=== PATIENT | female | born 1960 | race Hispanic/Latino ===

== ENCOUNTER 2019-11-18 13:42 | Emergency (ER) | payer SELFPAY ==
[2019-11-18] MEDS ORDERED: LIDOCAINE 1% MPF 5 ML VIAL ONE (14:06)
[2019-11-18] MEDS ORDERED: TETANUS & DIPHTHERIA TOX,ADULT 0.5 ML VIAL ONE (14:07)
[2019-11-18] MEDS ORDERED: BUPIVACAINE 0.5% PF 10 ML VIAL ONE (14:07)
--- NOTE | 2019-11-18 15:22 | EDPHYS ---
Physician Documentation [facility] Name: Em Butler Age: 59 yrs Sex: Female : 1960 Arrival Date: 11/18/2019 Time: 13:44 Bed 18 Private MD: ED Physician Claudy Peters HPI: 11/17 13:53 This 59 yrs old Female presents to ER via Ambulatory with complaints of jmm Laceration To Hand. 13:53 The patient has a laceration patient states she cut her right 5th finger on a can lid jmm while taking out trash. denies other injury. patient is not utd on tetanus immunization. Onset: The symptoms/episode began/occurred acutely, just prior to arrival. Associated signs and symptoms: Pertinent negatives: deformity, dizziness, heavy bleeding, loss of consciousness, numbness distal to injury, suspected foreign body. Historical: - Allergies: 13:51 No Known Allergies; ca1 - PMHx: 13:51 Arthritis; GERD; Hypertension; Sleep Apnea; ca1 - PSHx: 13:51 Hysterectomy; Lumpectomy from right breast; Cholecystectomy; ca1 - Immunization history:: Adult Immunizations up to date, Last tetanus immunization: unknown. - Social history:: Smoking status: Patient denies any tobacco usage or history of. ROS: 13:53 Constitutional: Negative for fever, chills, and weight loss, Cardiovascular: Negative jmm for chest pain, palpitations, and edema, Respiratory: Negative for shortness of breath, cough, wheezing, and pleuritic chest pain. 13:53 Skin: Positive for laceration(s). 13:53 All other systems are negative. Exam: 13:53 Constitutional: This is a well developed, well nourished patient who is awake, alert, jmm and in no acute distress. Head/Face: atraumatic. Eyes: EOMI, no conjunctival erythema appreciated ENT: Moist Mucus Membranes Neck: Trachea midline, Supple Chest/axilla: Normal chest wall appearance and motion. Cardiovascular: Regular rate and rhythm. No edema appreciated Respiratory: Normal respirations, no respiratory distress appreciated Abdomen/GI: Non distended, soft Back: Normal ROM 13:53 Musculoskeletal/extremity: FROM noted to the right 5th finger, full strength against resistance, < 2 sec dist cap refill, NVI. 13:53 Skin: 3 cm laceration noted to the right fifth finger. Vital Signs: 13:48 BP 175 / 86; Pulse 94; Resp 15 S; Temp 98.6(TE); Pulse Ox 99% on R/A; Weight 134.26 kg ca1 (R); Height 4 ft. 11 in. (149.86 cm) (R); 13:48 Body Mass Index 59.78 (134.26 kg, 149.86 cm) ca1 Laceration: 15:19 Wound Repair of 3cm ( 1.2in ) subcutaneous laceration to dorsal aspect of proximal jmm phalanx of right little finger. Distal neuro/vascular/tendon intact. Anesthesia: Local anesthetic administered with 3 mls of Lido/Marcaine. Wound prep: Simple cleansing with betadine by me. Skin closed with 5 5-0 Prolene using simple sutures and sterile technique. Patient tolerated well. MDM: 13:53 Patient medically screened. [facility] 15:19 Data reviewed: vital signs, nurses notes. Counseling: I had a detailed discussion with woodrow the patient and/or guardian regarding: the historical points, exam findings, and any diagnostic results supporting the discharge/admit diagnosis, the need for outpatient follow up, to return to the emergency department if symptoms worsen or persist or if there are any questions or concerns that arise at home. ED course: Patient given wound infection return precautions. Patient understood and agrees with the plan of care. . 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 Exp: em 06/18/2021. Lot #: [id number]. } Route: IM; Site: left deltoid; 15:14 Follow up: Response: No adverse reaction em 14:13 Drug: Lidocaine (1 %) 10 ml Volume: 20 ml; Route: Infiltration; em 14:30 Follow up: Response: No adverse reaction; Pain is decreased em 14:14 Drug: Marcaine (0.5 %) 10 ml Volume: 10 ml; Route: Infiltration; em 14:30 Follow up: Response: No adverse reaction; Pain is decreased em Disposition: 17:15 Co-signature as Attending Physician, Claudy Peters MD. rn Disposition: 11/18/19 15:21 Discharged to Home. Impression: Finger Laceration. - Condition is Stable. - Discharge Instructions: Laceration Care, Adult. - Medication Reconciliation Form, Thank You Letter, Antibiotic Education, Prescription Opioid Use, Work release form form. - Follow up: Private Physician; When: 7 - 10 days; Reason: Recheck today's complaints, Continuance of care, Staple/Suture removal, Re-evaluation by your physician. Signatures: Andrey Kumar PA PA jmm Munoz, Edgar, RN RN em Claudy Peters MD MD rn Acob, EDDIE Norwood RN ca1 Corrections: (The following items were deleted from the chart) 15:40 15:21 11/18/2019 15:21 Discharged to Home. Impression: Finger Laceration. Condition is em Stable. Forms are Medication Reconciliation Form, Thank You Letter, Antibiotic Education, Prescription Opioid Use. Follow up: Private Physician; When: 7 - 10 days; Reason: Recheck today's complaints, Continuance of care, Staple/Suture removal, Re-evaluation by your physician. woodrow
--- NOTE | 2019-11-18 15:22 | ER ---
Nurse's Notes [facility] Name: Em Butler Age: 59 yrs Sex: Female : 1960 Arrival Date: 11/18/2019 Time: 13:44 Bed 18 Private MD: Diagnosis: Finger Laceration Presentation: 11/17 13:48 Chief complaint: Patient states: Lac on lateral R hand with a tin can. Coronavirus ca1 screen: Proceed with normal triage. Patient denies a cough. Patient denies shortness of breath or difficulty breathing. Patient denies measured and/or subjective temperature greater than 100.4F prior to today's visit. Patient denies travel on a cruise ship or to a country the [facility] currently lists as an affected area. Patient denies contact with known and/or suspected case of COVID-19. Ebola Screen: Patient negative for fever greater than or equal to 101.5 degrees Fahrenheit, and additional compatible Ebola Virus Disease symptoms Patient denies exposure to infectious person. Patient denies travel to an Ebola-affected area in the 21 days before illness onset. No symptoms or risks identified at this time. Initial Sepsis Screen: Does the patient meet any 2 criteria? No. Patient's initial sepsis screen is negative. Does the patient have a suspected source of infection? No. Patient's initial sepsis screen is negative. Risk Assessment: Do you want to hurt yourself or someone else? Patient reports no desire to harm self or others. Onset of symptoms was November 18, 2019. 13:48 Method Of Arrival: Ambulatory ca1 13:48 Acuity: ANNY 4 ca1 Historical: - Allergies: 13:51 No Known Allergies; ca1 - PMHx: 13:51 Arthritis; GERD; Hypertension; Sleep Apnea; ca1 - PSHx: 13:51 Hysterectomy; Lumpectomy from right breast; Cholecystectomy; ca1 - Immunization history:: Adult Immunizations up to date, Last tetanus immunization: unknown. - Social history:: Smoking status: Patient denies any tobacco usage or history of. Screenin:00 Abuse screen: Denies threats or abuse. Nutritional screening: No deficits noted. em Tuberculosis screening: No symptoms or risk factors identified. Fall Risk None identified. Assessment: 14:00 General: Appears in no apparent distress. comfortable, Behavior is calm, cooperative, em appropriate for age, Denies fever. Pain: Complains of pain in outer aspect of right palm. Neuro: Level of Consciousness is awake, alert, obeys commands, Oriented to person, place, time, situation, Appropriate for age. Cardiovascular: Capillary refill < 3 seconds Patient's skin is warm and dry. Respiratory: Airway is patent Respiratory effort is even, unlabored, Respiratory pattern is regular, symmetrical. GI: Abdomen is flat. Derm: Skin is intact, is healthy with good turgor, Skin is pink, warm \T\ dry. Musculoskeletal: Capillary refill < 3 seconds, Range of motion: intact in all extremities. Injury Description: Laceration sustained to outer aspect of right palm is clean, 0.5 to 2.5 cm long, was sustained less than 30 minutes ago. is bleeding a small amount. Vital Signs: 13:48 BP 175 / 86; Pulse 94; Resp 15 S; Temp 98.6(TE); Pulse Ox 99% on R/A; Weight 134.26 kg ca1 (R); Height 4 ft. 11 in. (149.86 cm) (R); 13:48 Body Mass Index 59.78 (134.26 kg, 149.86 cm) ca1 ED Course: 13:44 Patient arrived in ED. bp1 13:50 Triage completed. ca1 13:51 Nathan Patel, RN is Primary Nurse. em 13:51 Arm band placed on right wrist. ca1 13:53 Andrey Kumar PA is PHCP. [facility] 13:53 Claudy Peters MD is Attending Physician. [facility] 14:00 Patient has correct armband on for positive identification. Bed in low position. Call em light in reach. Side rails up X2. 15:00 Assist provider with laceration repair on outer aspect of right palm that was using em sutures. Set up tray. Performed by Andrey SORIA Dressed with 4X4s, Kerlix, Neosporin, Patient tolerated well. 15:37 Patient did not have IV access during this emergency room visit. 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 Exp: em 06/18/2021. Lot #: [id number]. } Route: IM; Site: left deltoid; 15:14 Follow up: Response: No adverse reaction em 14:13 Drug: Lidocaine (1 %) 10 ml Volume: 20 ml; Route: Infiltration; em 14:30 Follow up: Response: No adverse reaction; Pain is decreased em 14:14 Drug: Marcaine (0.5 %) 10 ml Volume: 10 ml; Route: Infiltration; em 14:30 Follow up: Response: No adverse reaction; Pain is decreased em Outcome: 15:21 Discharge ordered by MD. [place] 15:37 Discharged to home ambulatory. em 15:37 Condition: good 15:37 Discharge instructions given to patient, Instructed on discharge instructions, follow up and referral plans. wound care, Demonstrated understanding of instructions, follow-up care, wound care. 15:40 Patient left the ED. em Signatures: Andrey Kumar PA PA jmm Munoz, Edgar RN RN em Enma Zelaya RN RN [facility] Clari Mendez Corrections: (The following items were deleted from the chart) 15:39 15:37 No provider procedures requiring assistance completed. em em
[2019-11-18 16:21] VITALS: BP 175/86; TEMP 98.6; O2SAT 99
== END 2019-11-18 15:40 | disposition home or self-care (01) ==
LOC: ER 13:42
PROC: 0JQJ0ZZ Repair Right Hand Subcutaneous Tissue and Fascia, Open Approach (ICD-10-PCS; principal; 2019-11-18)
DX: S61.216A Laceration without foreign body of right little finger without damage to nail, initial encounter (principal); W26.8XXA Contact with other sharp object(s), not elsewhere classified, initial encounter; Y93.E9 Activity, other interior property and clothing maintenance; Y92.9 Unspecified place or not applicable; Z23 Encounter for immunization; I10 Essential (primary) hypertension
CPT/HCPCS: 90471; 90714; 99283

== ENCOUNTER 2020-10-07 10:36 | Inpatient (IN) | payer SELFPAY ==
--- OUTSIDE RECORDS SUMMARY | 2020-10-07 10:38 | XMS REPORT | Continuity of Care Document ---
:1960 Author Organization [facility] t Address [address] [place] [address] Care Team Providers Name Role Phone Unavailable Unavailable Unavailable Problems This patient has no known problems. Allergies, Adverse Reactions, Alerts This patient has no known allergies or adverse reactions. Medications This patient has no known medications. Procedures This patient has no known procedures. Results Test Description Test Time Test Comments Results Result [facility] e Comments BREAST ULTRASOUND 2018-09-15 - BREAST ULTRASOUND CORE BIOPSY RIGHT 09:37:50 CORE BIOPSY RIGHTULTRASOUND GUIDED BIOPSY RIGHT BREAST WITH MARKING DEVICE INSERTED AND POST DIGITAL MAMMOGRAPHIC AND ULTRASOUND IMAGIN09/09/2018CLINICAL: Biopsy The 1.7 cm complex cystic and solid mass in the right breast at 10 o'clock, 3 cm from the nipple is suspicious for malignancy. An ultrasound-guided biopsy targeting the solid component is recommended. PATIENT CONSENT: The procedure along with risks, benefits, alternatives, anesthesia, plan and tissue marker placement were discussed with the patient. Following this, signed, witnessed informed concent was obtained. Comparison is made to exam dated 08/25/2018 ultrasound - [facility]-. An ultrasound guided biopsy using real-time ultrasound was performed for the concerning mass located in the right breast at 10 o'clock, anterior depth, 3 cm from the nipple. This was described on the previous ultrasound report. The skin was prepped in the usual manner. Local anesthetic was administered to the access site. A 14 gauge biopsy needle was placed adjacent to the abnormality through an introducer device under ultrasound guidance. Once the needle was documented to be in the correct location, multiple specimens were obtained using a BARD biopsy device. A ribbon shaped clip was inserted into the biopsy cavity. A sterile dressing was applied to the access site. Post procedure digital mammographic and ultrasound imaging demonstrates the clip at the targeted area. The specimens were sent to the laboratory for pathological analysis. IMPRESSION: ULTRASOUND GUIDED BIOPSYUltrasound guided biopsy of the mass in the right breast at 10 o'clock, anterior depth, 3 cm from the nipple was successful with no apparent post procedure complications. Waiting for pathology results. A final report will be issued when these become available. ADDENDUM:Pathology report the following:Right breast 10 o'clock, 3 cm from the nipple biopsy:BENIGN PAPILLARY NEOPLASM WITHOUT EVIDENCE OF ATYPIA OR MALIGNANCYThe finding is concordant with imaging. Surgical consultation is recommended for excision. Amado Eugene M.D.pl,cc/:09/15/2018 09:37:50 Entry: cp - 09/16/2018 14:25:14copy to: Phil Martinez MD, ph: [phone], fax: [phone] Technologist: Saundra Ferreira, [facility]-RGletter sent: Surgical Consult [facility] DIAG MAMM RIGHT 2018-09-09 - DIAG MAMM RIGHT CAD CAD DIGITAL 09:12:32 DIGITALUNILATERAL RIGHT DIGITAL DIAGNOSTIC MAMMOGRAM WITH CAD - RIGHT BREAST POST-PROCEDURE IMAGING FOR MARKER PLACEMENT: 09/09/2018CLINICAL: Post clip placement right. Current mammographic images were evaluated by either a studdex M-Vu or a [employer] ImageChecker CAD (computer aided detection system). Comparison is made to exam dated 09/09/2018 ultrasound biopsy - [facility]. The tissue of the right breast is predominantly fatty. There is a marker clip in the appropriate position in the right breast. This marker clip placement is at biopsy site. IMPRESSION: POST PROCEDURE IMAGING FOR MARKER PLACEMENTThere was a successful marker clip placement in the right breast. Amado Roberto M.D. pl/:09/09/2018 09:12:32 copy to: Phil Martinez MD, ph: [phone], fax: [phone] Technologist: Yessenia ULRICH, [facility]-RGMammogram BI-RADS: Post-procedure mammogram for marker placement BREAST ULTRASOUND 2018-08-25 - BREAST ULTRASOUND RIGHT 16:29:27 RIGHTULTRASOUND OF RIGHT BREAST AND RIGHT AXILLA: 08/25/2018CLINICAL: Abnormal mammogram. No prior exams were available for comparison. Real-time ultrasound of the right breast and axilla was performed. A 1.7 x 1.3 x 1.3 cm complex cystic and solid mass is noted in the right breast at 10 o'clock, 3 cm from the nipple. It correlates with the mammographic finding. The solid components measures up to 1.1 x 0.4 x 0.8 cm and appears to extend from an adjacent duct. It demonstrates increased vascularity. A scar from a previous excisional biopsy is noted in the right breast at 12 o'clock, 7 cm from the nipple, benign. Scattered subcentimeter cysts are noted, benign. No other abnormalities were seen sonographically in the right breast or the right axilla. IMPRESSION: SUSPICIOUS OF MALIGNANCY - FOLLOW-UP RECOMMENDEDThe 1.7 cm complex cystic and solid mass in the right breast at 10 o'clock, 3 cm from the nipple is suspicious for malignancy. An ultrasound-guided biopsy targeting the solid component is recommended.Mee Eugene M.D. cc/:08/25/2018 16:29:27 Entry: cc - 08/28/2018 11:09:58copy to: Phil Martinez MD, ph: [phone], fax: [phone] Technologist: Saundra Ferreira, [facility] ImagingLOVELACE MEDICAL CENTERlett sent: BIRADS 4/5 Biopsy Ultrasound BI-RADS: 4c Suspicious abnormality - moderate concern but not classic for malignancy SCR MAMM 2018-06-10 - SCR MAMM BILATERAL BILATERAL ROB 13:16:36 ROB CAD CAD DIGITAL DIGITALBILATERAL DIGITAL SCREENING MAMMOGRAM 3D/2D WITH CAD: 05/29/2018CLINICAL: Asymptomatic. Digital breast tomosynthesis was performed in addition to routine CC and MLO views. Current mammographic images were evaluated by either a studdex M-Vu or a [employer] ImageChecker CAD (computer aided detection system). Comparison is made to exam dated 11/08/2008 mammogram - [facility]. The tissue of both breasts is predominantly fatty. There are benign calcifications in both breasts. Some are associated with masses and consistent with degenerating fibroadenomata. There also are benign-appearing asymmetries in both breasts. Additionally, there is a new benign-appearing 1.4 x 1.1 x 1.1 cm mass in the anterior right breast, upper outer quadrant, 4-5 cm from the nipple. Other benign-appearing breast masses are again noted.No suspicious architectural distortion, malignant type calcification, or lymph node abnormality detected. IMPRESSION: INCOMPLETE ASSESSMENT: ADDITIONAL IMAGING EVALUATION RECOMMENDEDNo significant new finding in the left breast is noted. A new benign-appearing mass is present in the right breast. Breast ultrasound is advised for further evaluation.Anton Conway M.D. rb/:06/10/2018 13:16:36 copy to: Phil Martinez MD, ph: [phone], fax: [phone] Technologist: Ruthie Montoya MM, [facility] Mammographyletter sent: Additional Imaging Mammogram BI-RADS: 0 Indeterminate
[2020-10-07 11:40] LABS: Absolute Lymphocytes (CBC) 2.4 K/uL (0.7-4.9); Basophils % 0.4 % (0-1.3); Hematocrit 35.8 % (36.0-45.0); Lymphocytes % 28.2 % (15.3-44.8); MPV 8.4 fL (7.6-11.3); RBC Red Blood Cell Count 3.96 M/uL (3.86-4.86)
[2020-10-07 11:45] LABS: Protime INR 1.1
[2020-10-07 11:57] LABS: ALT/SGPT 28 U/L (12-78); AST/SGOT 23 U/L (15-37); Albumin 3.4 g/dL (3.4-5.0); Alkaline Phosphatase 88 U/L (45-117); BUN Blood Urea Nitrogen 24 mg/dL (7-18); Bicarbonate 28 mmol/L (21-32); Bilirubin Direct 0.1 mg/dL (0-0.2); Bilirubin Total 0.4 mg/dL (0.2-1.0); Glucose Level 111 mg/dL (74-106); Magnesium 2.1 mg/dL (1.8-2.4); NT PRO-BNP 486 pg/mL (<125); Potassium 4.1 mmol/L (3.5-5.1); Protein, Total 7.7 g/dL (6.4-8.2); Sodium Level 143 mmol/L (136-145); Troponin (Emerg Dept Use Only) < 0.02 ng/mL (0.0-0.045)
--- NOTE | 2020-10-07 12:05 | RAD REPORT ---
EXAM DESCRIPTION: RAD - Chest Single View - 10/07/2020 11:44 am CLINICAL HISTORY: CHEST PAIN Chest pain. COMPARISON: Chest Single View dated 03/04/2017; Chest Single View dated 09/01/2015; CHEST SINGLE VIEW dated 08/09/2013; CHEST SINGLE VIEW dated 10/23/2000 FINDINGS: Portable technique limits examination quality. Mild to moderate pulmonary edema. The heart is mildly enlarged in size. No displaced fractures. IMPRESSION: Mild CHF.
[2020-10-07] MEDS ORDERED: MORPHINE 4 MG/ML SYR ONE (12:54)
[2020-10-07] MEDS ORDERED: ONDANSETRON 4 MG/2 ML VIAL ONE (12:55)
[2020-10-07] MEDS ORDERED: FUROSEMIDE 20 MG/ 2ML VIAL ONE (14:43)
--- NOTE | 2020-10-07 15:29 | EDPHYS ---
Physician Documentation [facility] Name: Em Butler Age: 60 yrs Sex: Female : 1960 Arrival Date: 10/07/2020 Time: 10:39 Bed 8 Private MD: ED Physician Toño Rivas HPI: 10/07 11:19 This 60 yrs old Female presents to ER via Ambulatory with complaints of Chest pm1 Pain, Shortness Of Breath. 11:19 The patient or guardian reports chest pain that is located primarily in the behind left pm1 breast. Onset: 3 day(s) ago. The pain radiates to left back. Associated signs and symptoms: Pertinent positives: cough, shortness of breath, Pertinent negatives: abdominal pain, diaphoresis, dizziness, nausea, vomiting. The chest pain is described as sharp. Duration: The patient or guardian reports a single episode, that is still ongoing. Modifying factors: the symptoms are aggravated by shortness of breath with exertion. Severity of pain: in the emergency department the pain has improved. The patient has not experienced similar symptoms in the past. The patient has been recently seen by a physician: the patient's primary care provider, with different complaint(s), blood pressure management. Additional blood pressure medication prescribed. Historical: - Allergies: 10:58 No Known Allergies; aa5 - PMHx: 10:58 Arthritis; GERD; Hypertension; Sleep Apnea; aa5 - PSHx: 10:58 Hysterectomy; Lumpectomy from right breast; Cholecystectomy; aa5 - Immunization history:: Adult Immunizations unknown. - Social history:: Smoking status: Patient denies any tobacco usage or history of. ROS: 11:19 Constitutional: Negative for fever, chills, and weight loss. pm1 11:19 Eyes: Negative for injury, pain, redness, and discharge, ENT: Negative for injury, pm1 pain, and discharge, Neck: Negative for injury, pain, and swelling. 11:19 Abdomen/GI: Negative for abdominal pain, nausea, vomiting, diarrhea, and constipation, Back: Negative for injury and pain, : Negative for injury, bleeding, discharge, and swelling, MS/Extremity: Negative for injury and deformity, Skin: Negative for injury, rash, and discoloration, Neuro: Negative for headache, weakness, numbness, tingling, and seizure. 11:19 Cardiovascular: Positive for chest pain, Negative for edema, palpitations. 11:19 Respiratory: Positive for cough, shortness of breath, Negative for sputum production. Exam: 11:19 Constitutional: This is a well developed, well nourished patient who is awake, alert, pm1 and in no acute distress. Head/Face: Normocephalic, atraumatic. 11:19 Back: No spinal tenderness. No costovertebral tenderness. Full range of motion. Skin: Warm, dry with normal turgor. Normal color with no rashes, no lesions, and no evidence of cellulitis. MS/ Extremity: Pulses equal, no cyanosis. Neurovascular intact. Full, normal range of motion. 11:19 Eyes: Exam is negative for acute changes, Periorbital structures: appear normal, Extraocular movements: no acute changes, Conjunctiva: normal, Sclera: no acute changes, icterus, is not appreciated. 11:19 ENT: Mouth: Lips: normal, Oral mucosa: normal, pink and intact, moist. 11:19 Chest/axilla: Inspection: normal, Palpation: is normal, no crepitus, no tenderness. 11:19 Cardiovascular: Rate: normal, Rhythm: regular, Pulses: no pulse deficits are appreciated, Heart sounds: normal, Edema: is not appreciated. 11:19 Respiratory: the patient does not display signs of respiratory distress, Respirations: normal, Breath sounds: are clear throughout. 11:19 Abdomen/GI: Inspection: obese Palpation: abdomen is soft and non-tender, in all quadrants. 11:19 Neuro: Orientation: is normal, Mentation: is normal, Motor: is normal, moves all fours, Sensation: is normal, no obvious gross deficits. Vital Signs: 10:50 BP 199 / 93; Pulse 85; Resp 22 S; Temp 97.9(TE); Pulse Ox 98% on R/A; Weight 128.37 kg aa5 (R); Height 4 ft. 11 in. (149.86 cm) (R); 11:30 BP 176 / 77; Pulse 78; Resp 17; Pulse Ox 98% on R/A; Pain 7/10; hb 12:15 BP 155 / 87; Pulse 50; Resp 19; Pulse Ox 98% on R/A; Pain 8/10; hb 13:48 BP 110 / 74; Pulse 50; Resp 15; Pulse Ox 97% on R/A; hb 14:24 BP 160 / 86; Pulse 60; Resp 20; Pulse Ox 99% on R/A; hb 15:27 BP 163 / 91; Pulse 55; Resp 17; Pulse Ox 96% on R/A; hb 16:07 BP 133 / 78; Pulse 54; Resp 15; Pulse Ox 96% on R/A; hb 17:30 BP 146 / 72; Pulse 56; Resp 16; Pulse Ox 96% on R/A; hb 18:23 BP 151 / 95; Pulse 79; Resp 16; Pulse Ox 95% on R/A; hb 19:00 BP 158 / 77; Pulse 54; Resp 18; Pulse Ox 95% on R/A; Pain 7/10; jb4 22:01 BP 151 / 88; Pulse 66; Resp 20; Pulse Ox 98% on R/A; ak2 10:50 Body Mass Index 57.16 (128.37 kg, 149.86 cm) aa5 MDM: 11:08 Patient medically screened. comfort 15:15 Counseling: I had a detailed discussion with the patient and/or guardian regarding: the pm1 historical points, exam findings, and any diagnostic results supporting the discharge/admit diagnosis, lab results, radiology results, the need for further work-up and treatment in the hospital. 15:26 Data reviewed: vital signs. Data interpreted: Pulse oximetry: on room air is 99 %. pm1 Interpretation: normal. 15:28 Physician consultation: Omar David was contacted at 15:28, regarding admission, pm1 patient's condition, and will see patient in ED, shortly. 10/07 11:10 Order name: Basic Metabolic Panel pm1 10/07 11:10 Order name: CBC with Diff; Complete Time: 11:59 pm10/07 11:10 Order name: LFT's; Complete Time: 11:59 pm10/07 11:10 Order name: Magnesium; Complete Time: 11:59 pm10/07 11:10 Order name: NT PRO-BNP; Complete Time: 11:59 pm10/07 11:10 Order name: PT-INR; Complete Time: 11:59 pm10/07 11:10 Order name: Troponin (emerg Dept Use Only); Complete Time: 11:59 pm10/07 11:11 Order name: Basic Metabolic Panel; Complete Time: 11:59 EDMS 10/07 11:35 Order name: Flu pm1 10/07 11:36 Order name: Influenza Screen (A ; Complete Time: 12:33 EDMS 10/07 20:04 Order name: COVID-19 : Document "Date of Symptom Onset" if Symptomatic. jb4 10/07 20:33 Order name: CORONAVIRUS EDMS 10/07 21:33 Order name: SARS-COV-2 RT PCR; Complete Time: 09:14 EDMS 10/07 11:10 Order name: XRAY Chest (1 view); Complete Time: 12:14 pm1 10/07 11:10 Order name: EKG; Complete Time: 11:11 pm1 10/07 11:10 Order name: Cardiac monitoring; Complete Time: 11:33 pm1 10/07 11:10 Order name: EKG - Nurse/Tech; Complete Time: 11:33 pm1 10/07 11:10 Order name: IV Saline Lock; Complete Time: 11:33 pm1 10/07 11:10 Order name: Labs collected and sent; Complete Time: 11:33 pm1 10/07 11:10 Order name: O2 Per Protocol; Complete Time: 11:33 pm1 10/07 11:10 Order name: O2 Sat Monitoring; Complete Time: 11:33 pm1 Administered Medications: 12:37 Drug: morphine 4 mg Route: IVP; Site: right antecubital; hb 13:15 Follow up: Response: No adverse reaction hb 12:38 Drug: Zofran (Ondansetron) 4 mg Route: IVP; Site: right antecubital; hb 13:15 Follow up: Response: No adverse reaction hb 14:33 Drug: Lasix (furosemide) 20 mg Route: IVP; Site: right antecubital; hb Disposition: 10/07/20 15:28 Hospitalization ordered by Omar David for Observation. Preliminary diagnosis are Congestive heart failure - new onset, Chest pain, unspecified, Dyspnea, unspecified. - Bed requested for Telemetry/MedSurg (observation). - Status is Observation. ak2 - Condition is Stable. - Problem is new. - Symptoms have improved. Addendum: 10/10/2020 07:46 Co-signature as Attending Physician, Toño Rivas MD I agree with the assessment and c garcia plan of care. Signatures: Dispatcher [employer] EDMS Bri Dozier RN RN Toño Rivas MD MD cha Calderon, Audri, RN RN aa5 Amado Clifton, EMELI [employer] SALES ENGINEER pm1 Bryanna Sol, RN RN Jimmy King ak2 Corrections: (The following items were deleted from the chart) 10/07 19:17 15:28 Hospitalization Ordered by Omar David for Observation. Preliminary diagnosis mw is Congestive heart failure - new onset; Chest pain, unspecified; Dyspnea, unspecified. Bed requested for Telemetry/MedSurg (observation). Status is Observation. Condition is Stable. Problem is new. Symptoms have improved. pm1 21:34 19:17 10/07/2020 15:28 Hospitalization Ordered by Omar David for Observation. mw Preliminary diagnosis is Congestive heart failure - new onset; Chest pain, unspecified; Dyspnea, unspecified. Bed requested for Telemetry/MedSurg (observation). Status is Observation. Condition is Stable. Problem is new. Symptoms have improved. mw 22:39 21:34 10/07/2020 15:28 Hospitalization Ordered by Omar David for Observation. ak2 Preliminary diagnosis is Congestive heart failure - new onset; Chest pain, unspecified; Dyspnea, unspecified. Bed requested for Telemetry/MedSurg (observation). Status is Observation. Condition is Stable. Problem is new. Symptoms have improved. mw
--- NOTE | 2020-10-07 15:29 | ER ---
Nurse's Notes [facility] Name: Em Butler Age: 60 yrs Sex: Female : 1960 Arrival Date: 10/07/2020 Time: 10:39 Bed 8 Private MD: Diagnosis: Congestive heart failure - new onset;Chest pain, unspecified;Dyspnea, unspecified Presentation: 10/07 10:50 Chief complaint: Patient states: chest pain that began 3-4 days ago with SOB. Reports aa5 slight cough. 10:50 Coronavirus screen: cough unrelated to allergies. Ebola Screen: Patient negative for aa5 fever greater than or equal to 101.5 degrees Fahrenheit, and additional compatible Ebola Virus Disease symptoms. Initial Sepsis Screen: Does the patient meet any 2 criteria? No. Patient's initial sepsis screen is negative. Does the patient have a suspected source of infection? No. Patient's initial sepsis screen is negative. Risk Assessment: Do you want to hurt yourself or someone else? Patient reports no desire to harm self or others. Onset of symptoms was October 2020. 10:50 Method Of Arrival: Ambulatory aa5 10:50 Acuity: ANNY 2 aa5 Historical: - Allergies: 10:58 No Known Allergies; aa5 - PMHx: 10:58 Arthritis; GERD; Hypertension; Sleep Apnea; aa5 - PSHx: 10:58 Hysterectomy; Lumpectomy from right breast; Cholecystectomy; aa5 - Immunization history:: Adult Immunizations unknown. - Social history:: Smoking status: Patient denies any tobacco usage or history of. Screenin:33 Abuse screen: Denies threats or abuse. Denies injuries from another. Nutritional hb screening: No deficits noted. Tuberculosis screening: No symptoms or risk factors identified. Fall Risk None identified. Assessment: 11:34 General: Appears in no apparent distress. Behavior is calm, cooperative. Pain: Pain hb currently is 7 out of 10 on a pain scale. Neuro: Level of Consciousness is awake, alert, obeys commands, Oriented to person, place, time, situation. Cardiovascular: Reports chest pain, Patient's skin is warm and dry. Rhythm is regular. Respiratory: Reports shortness of breath Airway is patent Respiratory effort is even, unlabored, Respiratory pattern is regular, symmetrical. GI: No signs and/or symptoms were reported involving the gastrointestinal system. : No signs and/or symptoms were reported regarding the genitourinary system. EENT: No signs and/or symptoms were reported regarding the EENT system. Derm: Skin is pink, warm \T\ dry. Musculoskeletal: No signs and/or symptoms reported regarding the musculoskeletal system. 12:26 Reassessment: Patient appears in no apparent distress at this time. Patient and/or hb family updated on plan of care and expected duration. Pain level reassessed. Patient is alert, oriented x 3, equal unlabored respirations, skin warm/dry/pink. 13:48 Reassessment: Patient appears in no apparent distress at this time. Patient and/or hb family updated on plan of care and expected duration. Pain level reassessed. Patient is alert, oriented x 3, equal unlabored respirations, skin warm/dry/pink. 14:24 Reassessment: Patient appears in no apparent distress at this time. Patient and/or hb family updated on plan of care and expected duration. Pain level reassessed. Patient is alert, oriented x 3, equal unlabored respirations, skin warm/dry/pink. 15:27 Reassessment: Patient appears in no apparent distress at this time. Patient and/or hb family updated on plan of care and expected duration. Pain level reassessed. Patient is alert, oriented x 3, equal unlabored respirations, skin warm/dry/pink. 16:07 Reassessment: Patient appears in no apparent distress at this time. Patient and/or hb family updated on plan of care and expected duration. Pain level reassessed. Patient is alert, oriented x 3, equal unlabored respirations, skin warm/dry/pink. 17:34 Reassessment: Patient appears in no apparent distress at this time. Patient and/or hb family updated on plan of care and expected duration. Pain level reassessed. Patient is alert, oriented x 3, equal unlabored respirations, skin warm/dry/pink. 18:23 Reassessment: Patient appears in no apparent distress at this time. Patient and/or hb family updated on plan of care and expected duration. Pain level reassessed. Patient is alert, oriented x 3, equal unlabored respirations, skin warm/dry/pink. 19:04 Reassessment: Patient appears in no apparent distress at this time. Patient and/or jb4 family updated on plan of care and expected duration. Pain level reassessed. Patient is alert, oriented x 3, equal unlabored respirations, skin warm/dry/pink. 19:29 Reassessment: attempted to call report, instructed to wait for call back. jb4 22:09 General: report called to rn. ak2 Vital Signs: 10:50 BP 199 / 93; Pulse 85; Resp 22 S; Temp 97.9(TE); Pulse Ox 98% on R/A; Weight 128.37 kg aa5 (R); Height 4 ft. 11 in. (149.86 cm) (R); 11:30 BP 176 / 77; Pulse 78; Resp 17; Pulse Ox 98% on R/A; Pain 7/10; hb 12:15 BP 155 / 87; Pulse 50; Resp 19; Pulse Ox 98% on R/A; Pain 8/10; hb 13:48 BP 110 / 74; Pulse 50; Resp 15; Pulse Ox 97% on R/A; hb 14:24 BP 160 / 86; Pulse 60; Resp 20; Pulse Ox 99% on R/A; hb 15:27 BP 163 / 91; Pulse 55; Resp 17; Pulse Ox 96% on R/A; hb 16:07 BP 133 / 78; Pulse 54; Resp 15; Pulse Ox 96% on R/A; hb 17:30 BP 146 / 72; Pulse 56; Resp 16; Pulse Ox 96% on R/A; hb 18:23 BP 151 / 95; Pulse 79; Resp 16; Pulse Ox 95% on R/A; hb 19:00 BP 158 / 77; Pulse 54; Resp 18; Pulse Ox 95% on R/A; Pain 7/10; jb4 22:01 BP 151 / 88; Pulse 66; Resp 20; Pulse Ox 98% on R/A; ak2 10:50 Body Mass Index 57.16 (128.37 kg, 149.86 cm) aa5 ED Course: 10:39 Patient arrived in ED. mr 10:50 Arm band placed on Patient placed in an exam room, on a stretcher. aa5 10:55 EKG completed in triage. Results shown to . aa5 10:58 Triage completed. aa5 11:05 Amado Clifton NP is PHCP. pm1 11:05 Toño Rivas MD is Attending Physician. pm1 11:20 Sol, Bryanna, RN is Primary Nurse. hb 11:30 Inserted saline lock: 20 gauge in right antecubital area, using aseptic technique. hb Blood collected. 11:33 Patient has correct armband on for positive identification. Placed in gown. Bed in low hb position. Call light in reach. Side rails up X 1. night monitor on. Pulse ox on. NIBP on. 11:33 Basic Metabolic Panel Sent. hb 11:33 Patient maintains SpO2 saturation greater than 95% on room air. hb 11:43 XRAY Chest (1 view) In Process Unspecified. EDMS 15:27 Omar David is Hospitalizing Provider. pm1 20:04 Primary Nurse role handed off by Bryanna Sol RN mw2 21:00 Bobby Meier, RN is Primary Nurse. jb4 Administered Medications: 12:37 Drug: morphine 4 mg Route: IVP; Site: right antecubital; hb 13:15 Follow up: Response: No adverse reaction hb 12:38 Drug: Zofran (Ondansetron) 4 mg Route: IVP; Site: right antecubital; hb 13:15 Follow up: Response: No adverse reaction hb 14:33 Drug: Lasix (furosemide) 20 mg Route: IVP; Site: right antecubital; hb Output: 19:10 Urine: 800ml (Voided); Total: 800ml. jb4 Outcome: 15:28 Decision to Hospitalize by Provider. pm1 22:38 Admitted to ak2 22:39 Patient left the ED. [facility] Signatures: Dispatcher [employer] [facility] Ajay Nereyda TrinhChiqui RN RN aa5 Amado Clifton NP [employer] pm1 Bryanna Sol, RN RN Bobby Meier RN RN jb4 Aleyda Stacy 2 Jimmy King [facility] Corrections: (The following items were deleted from the chart) 10:58 10:50 Acuity: ANNY 3 aa5 aa5 13:49 13:48 BP 110 / 74; Pulse 46bpm; Resp 15bpm; Pulse Ox 97% RA; hb hb
--- NOTE | 2020-10-07 16:53 | P.HP ---
Certification for Inpatient Patient admitted to: Inpatient With expected LOS: >2 Midnights Practitioner: I am a practitioner with admitting privileges, knowledge of patient current condition, hospital course, and medical plan of care. Services: Services provided to patient in accordance with Admission requirements found in Title 42 Section 412.3 of the Code of Federal Regulations Patient History Date of Service: 10/07/20 Reason for admission: Shortness of breath History of Present Illness: 60-year-old morbidly obese woman with a history of hypertension and sleep apnea presented to the emergency department with a complaint of progressive shortness of breath of 4 days duration. Patient reports worsening shortness of breath from exertion to shortness of breath at rest. She also reports pleuritic chest pain. She denied any palpitation. She reports intermittent cough, no fever. Chest x-ray done in the emergency department demonstrated pulmonary edema. Patient with known diagnosis of CHF. She had stress test and echocardiogram done in 2017 which were all normal. New onset CHF is suspected. Initial troponin is negative. Patient is hospitalized for further management. Allergies No Known Allergies Allergy (Unverified 09/01/15 02:38) Home Medications: Lisinopril/Hydrochlorothiazide [Zestoretic 20-12.5 mg Tablet] 1 each PO DAILY 09/01/15 Pantoprazole Sodium [Protonix] 40 mg PO DAILY #90 tablet. 09/01/15 Tramadol HCl 50 mg PO BEDTIME PRN 09/01/15 - Past Medical/Surgical History Diabetic: No -: HTN -: sleep apnea -: sinusitis -: tubal ligation -: hysterectomy -: gall stone removal - Family History Mother -: Hypertension, Diabetes Father -: Heart disease - Social History Alcohol use: No CD- Drugs: Yes Caffeine use: Yes Review of Systems Other: Except as documented, all other systems reviewed and negative. Physical Examination - Physical Exam General: Alert, In no apparent distress, Oriented x3, Obese HEENT: Normocephalic, PERRLA, Mucous membr. moist/pink, EOMI, Sclerae nonicteric Neck: Supple, JVD not distended, No Thyromegaly Respiratory: Diminished, Other (Mild bibasilar crackles) Cardiovascular: No edema, Regular rate/rhythm, Normal S1 S2, No murmurs Capillary refill: <2 Seconds Gastrointestinal: Normal bowel sounds, Soft and benign, Non-distended, No ten derness Musculoskeletal: No swelling, No tenderness Integumentary: No rashes, No erythema Neurological: Normal speech, Normal strength at 5/5 x4 extr, Cranial nerves 3-12 intact Lymphatics: No axilla or inguinal lymphadenopathy - Studies Laboratory Data (last 24 hrs) 10/07/20 11:26: PT 12.7 H, INR 1.10 10/07/20 11:26: WBC 8.60, Hgb 12.0, Hct 35.8 L, Plt Count 235 10/07/20 11:26: Sodium 143, Potassium 4.1, BUN 24 H, Creatinine 0.70, Glucose 111 H, Magnesium 2.1, Total Bilirubin 0.4, AST 23, ALT 28, Alkaline Phosphatase 88 Microbiology Data (last 24 hrs): 10/07/20 11:53 Nasopharnyx Influenza Type A Antigen Screen - Final 10/07/20 11:53 Nasopharnyx Influenza Type B Antigen Screen - Final Assessment and Plan - Problems (Diagnosis) (1) Acute CHF Current Visit: Yes Status: Acute (2) Obstructive sleep apnea Current Visit: Yes Status: Acute (3) HTN (hypertension) Current Visit: No Status: Chronic Qualifiers: Hypertension type: essential hypertension - Plan Admit patient to the medical floor. Continue to trend troponin. Start IV Lasix Obtain echocardiogram Cardiology consult. Monitor intake and output. Fluid restriction to 1500 ml/day. Blood pressure control. Continue home antihypertensives. Hydralazine p.r.n. for BP spikes. May add amlodipine to keep systolic blood pressure less than 140. Start aspirin. Check lipid profile Screened for diabetes. - Advance Directives Does patient have a Living Will: No Does patient have a Durable POA for Healthcare: No
[2020-10-07] MEDS: FUROSEMIDE 40 MG/4 ML VIAL IV SCH (22:39)
[2020-10-07 22:53] VITALS: BMI 57.1
[2020-10-08 03:37] LABS: Absolute Lymphocytes (CBC) 3.4 K/uL (0.7-4.9); Basophils % 0.8 % (0-1.3); Hematocrit 36.8 % (36.0-45.0); MPV 8.3 fL (7.6-11.3); RBC Red Blood Cell Count 4.04 M/uL (3.86-4.86)
[2020-10-08 03:59] LABS: Albumin 3.4 g/dL (3.4-5.0); Bilirubin Total 0.4 mg/dL (0.2-1.0); Magnesium 2.1 mg/dL (1.8-2.4); Phosphorus 5.7 mg/dL (2.5-4.9); Potassium 3.6 mmol/L (3.5-5.1); Protein, Total 7.8 g/dL (6.4-8.2)
[2020-10-08] MEDS ORDERED: POTASSIUM CL SA 10 MEQ TAB PO ONE (09:00)
[2020-10-08] MEDS: ENOXAPARIN 40 MG/0.4 ML SQ SCH (09:00)
[2020-10-08] MEDS ORDERED: ACETAMINOPHEN 500 MG TAB PO PRN (09:58)
[2020-10-08] MEDS: ASPIRIN EC 81 MG TAB PO SCH (10:19)
[2020-10-08] MEDS: FUROSEMIDE 40 MG/4 ML VIAL IV SCH ×2 (10:21→18:06)
[2020-10-08] MEDS ORDERED: MELATONIN 5 MG TABLET PO PRN (10:57)
[2020-10-08] MEDS: lisinopriL 20 MG TAB PO SCH (10:58)
[2020-10-08] MEDS: METOPROLOL TAR 50 MG TAB PO SCH (10:58)
[2020-10-08] MEDS ORDERED: METHYLPREDNISOLONE 125 MG INJ IV ONE (10:58)
--- NOTE | 2020-10-08 11:04 | P.PN ---
Subjective Date of Service: 10/08/20 Chief Complaint: Shortness of breath Patient is complaining of headache. She states her breathing is better. She is coughing occasionally. Physical Examination - Vital Signs Temperature: 97.8 F Blood Pressure: 160/69 Pulse: 59 Respirations: 16 Pulse Ox (%): 94 - Physical Exam General: Alert, In no apparent distress, Oriented x3 HEENT: Mucous membr. moist/pink Neck: Supple, JVD not distended Respiratory: Clear to auscultation bilaterally, Normal air movement Cardiovascular: No edema, Regular rate/rhythm, Normal S1 S2, No murmurs Gastrointestinal: Normal bowel sounds, Soft and benign, Non-distended, No ascites, No tenderness Musculoskeletal: No swelling, No tenderness Integumentary: No rashes, No erythema Neurological: Normal speech, Normal strength at 5/5 x4 extr - Studies Laboratory Data (last 24 hrs) 10/07/20 11:26: PT 12.7 H, INR 1.10 10/07/20 11:26: WBC 8.60, Hgb 12.0, Hct 35.8 L, Plt Count 235 10/07/20 11:26: Sodium 143, Potassium 4.1, BUN 24 H, Creatinine 0.70, Glucose 111 H, Magnesium 2.1, Total Bilirubin 0.4, AST 23, ALT 28, Alkaline Phosphatase 88 Microbiology Data (last 24 hrs): 10/07/20 11:53 Nasopharnyx Influenza Type A Antigen Screen - Final 10/07/20 11:53 Nasopharnyx Influenza Type B Antigen Screen - Final Assessment And Plan - Current Problems (Diagnosis) (1) Acute CHF Current Visit: Yes Status: Acute (2) Obstructive sleep apnea Current Visit: Yes Status: Acute (3) HTN (hypertension) Current Visit: No Status: Chronic Qualifiers: Hypertension type: essential hypertension - Plan Troponin trended negative. Patient diuresed well with IV Lasix. Continue IV Lasix Obtain echocardiogram tomorrow. Cardiology consult. Monitor intake and output. Fluid restriction to 1500 ml/day. Blood pressure control. Continue home antihypertensives. Hydralazine p.r.n. for BP spikes. May add amlodipine to keep systolic blood pressure less than 140. Continue aspirin. LDL is within target
[2020-10-08] MEDS: hydroCHLOROthiazide 12.5 MG CAP PO SCH (12:00)
[2020-10-08] MEDS: ALBUTEROL 2.5 MG/3 ML NEB SOL NEB SCH ×2 (13:49→19:45)
--- NOTE | 2020-10-08 15:18 | CON ---
Date of Consultation: 10/08/2020 Reason For Consultation: Chest pain. History Of Present Illness: A 60-year-old female with history of hypertension, obesity, sleep apnea, presented with shortness of breath on minimal exertion walking inside the house along with chest cayla n. Intermittent cough is present. There is no known history of cardiac disease and the chest pain i s retrosternal, sharp in nature, lasts few minutes and last episode she had was about half an hour ag o. Does not have any orthopnea, but has lower extremity edema. Past Medical History: As outlined above in the HPI. Medications: Refer to reconciliation sheet for detailed list. Allergies: NO KNOWN DRUG ALLERGIES. Family History: No premature coronary artery disease or cancer. Social History: Does not smoke or drink. Does not use any drugs. Review of Systems: All systems reviewed and they were negative except what was mentioned in the HPI. Physical Examination: Vital Signs: Temperature is 97.8, pulse is 59, breathing at 16, blood pressure 160/69, saturating 94 %. General: Pleasant middle-aged female, obese, no apparent distress. Head and Neck: Pupils are equal, reactive to light. Intact eye movements. No JVD. No swelling of the neck. Neck: Supple. Thyroid is not enlarged. Lungs: Faint crackles in bases. No accessory muscle use or muscle retraction. Heart: Regular rate and rhythm. No extra sounds. Abdomen: Soft, nontender. Bowel sounds positive. No organomegaly. No masses or hernia. No rigidi ty or rebound. Extremities: No clubbing, cyanosis. 1+ pedal edema. Skin: No rashes. Neurologic: Alert, awake, oriented x3. No acute focal deficits appreciated. Investigations: Troponin less than 0.02. BNP is 486. Creatinine is 0.82. Assessment And Recommendations: 1.Shortness of breath, likely due to congestive heart failure, on chest x-ray has pulmonary edema. Agree with Lasix 40 mg IV q.12 hours and monitor urine output, BUN, creatinine, electrolytes. Recomm end strict low-sodium diet and obtain echocardiogram. 2.Chest pain with what seems to be a new onset congestive heart failure. Obtain echocardiogram and also exercise nuclear stress test to further evaluate for ischemia. Further recommendations based on the test results. Thank you for the consult. /KAELA Voice ID: [id number] Report ID: [id number]
[2020-10-08] MEDS: GABAPENTIN 400 MG CAP PO SCH (20:35)
[2020-10-08] MEDS ORDERED: ALBUTEROL 2.5 MG/3 ML NEB SOL ONE (20:35)
[2020-10-09] MEDS: ALBUTEROL 2.5 MG/3 ML NEB SOL NEB SCH ×3 (01:55→13:40)
[2020-10-09 05:59] LABS: Potassium 3.7 mmol/L (3.5-5.1)
[2020-10-09] MEDS ORDERED: POTASSIUM CL SA 10 MEQ TAB PO ONE (09:00)
[2020-10-09] MEDS: ENOXAPARIN 40 MG/0.4 ML SQ SCH (09:00)
[2020-10-09] MEDS: lisinopriL 20 MG TAB PO SCH (09:00)
[2020-10-09 09:32] VITALS: O2SAT 98
[2020-10-09] MEDS: hydroCHLOROthiazide 12.5 MG CAP PO SCH (09:59)
[2020-10-09] MEDS: METOPROLOL TAR 50 MG TAB PO SCH (10:00)
[2020-10-09] MEDS: ASPIRIN EC 81 MG TAB PO SCH (10:00)
[2020-10-09] MEDS: FUROSEMIDE 40 MG/4 ML VIAL IV SCH (10:01)
[2020-10-09] MEDS: GABAPENTIN 400 MG CAP PO SCH (10:03)
--- NOTE | 2020-10-09 12:21 | PN ---
Date of Progress Note: 10/09/2020 Ms. Butler was seen by Dr. Aldana for new onset congestive heart failure. Has a history of sleep ap livier and hypertension. Chest x-ray showed mild CHF. She normally sees Dr. Martinez. An echocardiogram is still pending today, but the patient feels no symptoms. She has no edema. No rales. Her vital signs are stable. We will see what her echocardiogram shows, but I think she needs to be on a regime n that should include a beta-becky, low salt intake, low-dose Lasix, and we will see her as an outp atient. ALLIE/KAELA Voice ID: [id number] Report ID: [id number]
--- NOTE | 2020-10-09 13:09 | P.DS ---
Admission Date: 10/07/20 Discharge Date: 10/09/20 Disposition: ROUTINE DISCHARGE Discharge Condition: FAIR Reason for Admission: Shortness of breath Consultations: Cardiology - Problems (1) Acute CHF Status: Acute (2) Obstructive sleep apnea Status: Acute (3) HTN (hypertension) Status: Chronic Qualifiers: Hypertension type: essential hypertension Qualified Code(s): I10 - Essential (primary) hypertension Brief History of Present Illness: 60-year-old morbidly obese woman with a history of hypertension and sleep apnea presented to the emergency department with a complaint of progressive shortness of breath of 4 days duration. Patient reports worsening shortness of breath from exertion to shortness of breath at rest. She also reports pleuritic chest pain. She denied any palpitation. She reports intermittent cough, no fever. Chest x-ray done in the emergency department demonstrated pulmonary edema. Patient with known diagnosis of CHF. She had stress test and echocardiogram done in 2017 which were all normal. New onset CHF is suspected. Initial troponin is negative. Patient hospitalized for further management. Hospital Course: Patient admitted to the medical floor and treated for acute CHF with IV Lasix. Troponin trended negative. Her blood pressure was initially elevated and could have contributed to the pulmonary edema. Echocardiogram performed. Patient seen and evaluated by cardiology who recommended medical management with lisinopril, Coreg and low-dose Lasix for diuresis. Patient improved with treatment. She did not require oxygen. No chest pain during the hospital stay. Patient deemed stable for discharge per cardiology. Dr. Sharpe will read her echo and follow up with her as an outpatient. Patient is on lisinopril, hydrochlorothiazide and Toprol-XL which were continued during the hospital stay. Vital Signs/Physical Exam: Temp Pulse Resp BP Pulse Ox 97.0 F 67 18 153/67 H 96 10/09/20 08:00 10/09/20 10:01 10/09/20 08:00 10/09/20 10:01 10/09/20 08:00 General: Alert, In no apparent distress, Oriented x3 HEENT: Mucous membr. moist/pink Neck: JVD not distended Respiratory: Clear to auscultation bilaterally, Normal air movement Cardiovascular: No edema, Regular rate/rhythm, Normal S1 S2 Gastrointestinal: Normal bowel sounds, Soft and benign, No tenderness Musculoskeletal: No swelling Integumentary: No rashes, No breakdown Neurological: Normal strength at 5/5 x4 extr Laboratory Data at Discharge: WBC 10.30 K/uL (4.3-10.9) D 10/08/20 03:17 Hgb 12.5 g/dL (12.0-15.0) 10/08/20 03:17 Hct 36.8 % (36.0-45.0) 10/08/20 03:17 Plt Count 241 K/uL (152-406) 10/08/20 03:17 PT 12.7 SECONDS (9.5-12.5) H 10/07/20 11:26 INR 1.10 10/07/20 11:26 Sodium 140 mmol/L (136-145) 10/09/20 05:22 Potassium 3.7 mmol/L (3.5-5.1) 10/09/20 05:22 BUN 30 mg/dL (7-18) H 10/09/20 05:22 Creatinine 0.72 mg/dL (0.55-1.3) 10/09/20 05:22 Glucose 150 mg/dL (74-106) H 10/09/20 05:22 Phosphorus 5.7 mg/dL (2.5-4.9) H 10/08/20 03:17 Magnesium 2.1 mg/dL (1.8-2.4) 10/08/20 03:17 Total Bilirubin 0.4 mg/dL (0.2-1.0) 10/08/20 03:17 AST 16 U/L (15-37) 10/08/20 03:17 ALT 26 U/L (12-78) 10/08/20 03:17 Alkaline Phosphatase 89 U/L (45-117) 10/08/20 03:17 Troponin I < 0.02 ng/mL (0.0-0.045) 10/08/20 03:17 Triglycerides 114 mg/dL (<150) 10/08/20 03:17 Cholesterol 161 mg/dL (<200) 10/08/20 03:17 HDL Cholesterol 50 mg/dL (40-60) 10/08/20 03:17 Cholesterol/HDL Ratio 3.22 10/08/20 03:17 Home Medications: Lisinopril/Hydrochlorothiazide [Zestoretic 20-12.5 mg Tablet] 1 each PO DAILY 09/01/15 Gabapentin [Neurontin] 800 mg PO BID 10/07/20 Melatonin 10 mg PO BEDTIME PRN 10/07/20 Metoprolol Succinate [Toprol Xl] 100 mg PO DAILY 10/08/20 Furosemide [Lasix] 40 mg PO DAILY #30 tab 10/09/20 New Medications: Furosemide [Lasix] 40 mg PO DAILY #30 tab Diet: AHA Activity: Ad felecia Followup: Maxi Sharpe MD [ACTIVE - CAN ADMIT] - 1 Week Phil Martinez MD [Primary Care Provider] - Time spent managing pt's care (in minutes): 34
[2020-10-09 13:13] VITALS: BP 168/74; TEMP 98
--- NOTE | 2020-10-10 08:12 | ECHO ---
HEIGHT: 4 ft 11 in WEIGHT: 281 lb 8 oz DATE OF STUDY: 10/09/[address]: cris beaver 2-DIMENSIONAL: YES M.MODE: YES DOPPLER: YES COLOR FLOW: YES TDS: YES PORTABLE: NO DEFINITY: NO BUBBLE STUDY: NO DIAGNOSIS: PULMONARY EDEMA CARDIAC HISTORY: CATHERIZATION: SURGERY: PROSTHETIC VALVE: PACEMAKER: MEASUREMENTS (cm) DIASTOLIC (NORMALS) SYSTOLIC (NORMALS) IVSd 1.5 (0.6-1.2) LA Diam 3.2 (1.9-4.0) LVEF 55-60% LVIDd 4.1 (3.5-5.7) LVIDs 2.2 (2.0-3.5) %FS 47% LVPWd 1.4 (0.6-1.2) Ao Diam 2.8 (2.0-3.7) 2 DIMENSIONAL ASSESSMENT: RIGHT ATRIUM: NORMAL LEFT ATRIUM: NORMAL RIGHT VENTRICLE: NORMAL LEFT VENTRICLE: NORMAL TRICUSPID VALVE: MITRAL VALVE: NORMAL PULMONIC VALVE: NORMAL AORTIC VALVE: NORMAL PERICARDIAL EFFUSION: NONE AORTIC ROOT: NORMAL LEFT VENTRICULAR WALL MOTION: NORMAL DOPPLER/COLOR FLOW: SEE BELOW. COMMENTS: NORMAL LEFT VENTRICULAR EJECTION FRACTION 55-60%. NORMAL WALL MOTION. DIASTOLIC DYSFUNCTION. TECHNOLOGIST: Rosa TORO
== END 2020-10-09 14:29 | disposition home or self-care (01) | DRG 292 ==
LOC: ER 10:36 → ERHOLD 16:39 → 2ND 22:12
PROVIDERS: ADMIT Internal Medicine; ATTEND Internal Medicine
DX: I11.0 Hypertensive heart disease with heart failure (principal); Z68.43 Body mass index [BMI] 50.0-59.9, adult; I50.9 Heart failure, unspecified; E66.01 Morbid (severe) obesity due to excess calories; K21.9 Gastro-esophageal reflux disease without esophagitis; G47.33 Obstructive sleep apnea (adult) (pediatric); M19.90 Unspecified osteoarthritis, unspecified site; Z90.710 Acquired absence of both cervix and uterus; Z90.49 Acquired absence of other specified parts of digestive tract; Z79.899 Other long term (current) drug therapy; Z98.51 Tubal ligation status; Z20.822 Contact with and (suspected) exposure to COVID-19
CPT/HCPCS: 36415; 71045; 80048; 80053; 80061; 80076; 83036; 83735; 83880; 84100; 84484; 85025; 85610; 87804; 93005; 93306; 94640; 94760; 96374; 96375; 99285; J1650; J1940; J2405; J2930; U0003

== ENCOUNTER 2021-05-01 00:47 | Emergency (ER) | payer SELFPAY ==
--- OUTSIDE RECORDS SUMMARY | 2021-05-01 00:50 | XMS REPORT | Continuity of Care Document ---
:1960 Author Organization [facility] t Address [facility] Xavier Carballo [address] [place] [id number] Care Team Providers Name Role Phone Unavailable Unavailable Unavailable Problems This patient has no known problems. Allergies, Adverse Reactions, Alerts This patient has no known allergies or adverse reactions. Medications This patient has no known medications. Procedures This patient has no known procedures. Results Test Description Test Time Test Comments Results Result [facility] e Comments BREAST ULTRASOUND 2018-09-15 - BREAST [...] to exam dated 08/25/2018 ultrasound - [facility]-. An ultrasound guided biopsy using [...] 09/16/2018 14:25:14copy to: Phil Martinez MD, ph: [phone], fax: [phone] Technologist: Saundra Ferreira, [facility]-RGletter sent: Surgical Consult [facility] DIAG MAMM RIGHT 2018-09-09 - DIAG MAMM RIGHT CAD CAD DIGITAL 09:12:32 DIGITALUNILATERAL RIGHT DIGITAL DIAGNOSTIC MAMMOGRAM WITH CAD - RIGHT BREAST POST-PROCEDURE IMAGING FOR MARKER PLACEMENT: 09/09/2018CLINICAL: Post clip placement right. Current mammographic images were evaluated by either a [employer] M-Vu or a [employer] ImageChecker CAD (computer aided detection system). Comparison is made to exam dated 09/09/2018 ultrasound biopsy - [facility]. The tissue of the right breast is predominantly fatty. There is a marker clip in the appropriate position in the right breast. This marker clip placement is at biopsy site. IMPRESSION: POST PROCEDURE IMAGING FOR MARKER PLACEMENTThere was a successful marker clip placement in the right breast. Amado Roberto M.D. pl/:09/09/2018 09:12:32 copy to: Phil Martinez MD, ph: [phone], fax: [phone] Technologist: Yessenia ULRICH, [facility]-RGMammogram BI-RADS: Post-procedure mammogram for marker [...] is recommended.Mee Eugene M.D. cc/:08/25/2018 16:29:27 Entry: - 08/28/2018 11:09:58copy to: Phil Martinez MD, ph: [phone], fax: [phone] Technologist: Saundra Ferreira, [facility]-letter sent: BIRADS 4/5 Biopsy Ultrasound BI-RADS: 4c Suspicious abnormality - moderate concern but not classic for malignancy SCR MAMM 2018-06-10 - SCR MAMM BILATERAL BILATERAL ROB 13:16:36 ROB CAD CAD DIGITAL DIGITALBILATERAL DIGITAL SCREENING MAMMOGRAM 3D/2D WITH CAD: 05/29/2018CLINICAL: Asymptomatic. Digital breast tomosynthesis was performed in addition to routine CC and MLO views. Current mammographic images were evaluated by either a [employer] M-Vu or a [employer] ImageChecker CAD (computer aided detection system). Comparison is made to exam dated 11/08/2008 mammogram - [facility]. The tissue of both breasts is predominantly [...] 13:16:36 copy to: Phil Martinez MD, ph: [phone], fax: [phone] Technologist: Ruthie Montoya MM, [facility] Mammographyletter sent: Additional Imaging Mammogram BI-RADS: 0 Indeterminate
[2021-05-01 02:12] LABS: Absolute Lymphocytes (CBC) 2.3 K/uL (0.7-4.9); Lymphocytes % 39.9 % (15.3-44.8); MPV 7.5 fL (7.6-11.3); Protime INR 1.03; RBC Red Blood Cell Count 4.31 M/uL (3.86-4.86)
[2021-05-01 02:36] LABS: ALT/SGPT 21 U/L (12-78); AST/SGOT 15 U/L (15-37); Albumin 3.3 g/dL (3.4-5.0); Alkaline Phosphatase 95 U/L (45-117); BUN Blood Urea Nitrogen 16 mg/dL (7-18); Bicarbonate 28 mmol/L (21-32); Bilirubin Direct < 0.1 mg/dL (0-0.2); Bilirubin Total 0.2 mg/dL (0.2-1.0); Ferritin 84.1 ng/mL (8-388); Glucose Level 112 mg/dL (74-106); Magnesium 1.9 mg/dL (1.8-2.4); NT PRO-BNP 177 pg/mL (<125); Potassium 3.5 mmol/L (3.5-5.1); Protein, Total 7.4 g/dL (6.4-8.2); Sodium Level 140 mmol/L (136-145); Troponin (Emerg Dept Use Only) < 0.02 ng/mL (0.0-0.045)
--- NOTE | 2021-05-01 03:01 | ER ---
Nurse's Notes [facility] Name: Em Butler Age: 61 yrs Sex: Female : 1960 Arrival Date: 05/01/2021 Time: 00:53 Bed 14 Private MD: Diagnosis: SARS-associated coronavirus as the cause of diseases classified elsewhere;Chest pain, unspecified Presentation: 05/01 01:44 Chief complaint: Patient states: shortness of breath and chest pain. Coronavirus sv1 screen: Client denies travel out of the [place] in the last 14 days. Client presents with at least one sign or symptom that may indicate coronavirus-19. Provider contacted for isolation considerations. Client reports previous positive COVID test result. Ebola Screen: No symptoms or risks identified at this time. Initial Sepsis Screen: Does the patient meet any 2 criteria? No. Patient's initial sepsis screen is negative. Risk Assessment: Do you want to hurt yourself or someone else? Patient reports no desire to harm self or others. 01:44 Acuity: ANNY 3 sv1 01:44 Method Of Arrival: Ambulatory sv1 01:52 Initial Sepsis Screen: Does the patient have a suspected source of infection? No. sv1 Patient's initial sepsis screen is negative. Onset of symptoms is unknown. Triage Assessment: 01:41 General: Appears uncomfortable. General: Behavior is cooperative, appropriate for age. sv1 Pain: Denies pain. Cardiovascular: No deficits noted. Reports chest pain, shortness of breath. Respiratory: No deficits noted. Airway is patent Respiratory effort is even, unlabored. Historical: - Home Meds: 01:48 gabapentin 300 mg Oral cap 1 cap twice a day [Active]; Lopressor Oral once daily sv1 [Active]; Tramadol Oral [Active]; - PMHx: 01:48 Arthritis; GERD; Hypertension; Sleep Apnea; sv1 - Immunization history:: Adult Immunizations up to date, Client reports having NOT received the Covid vaccine. - Social history:: Smoking status: Patient denies any tobacco usage or history of. Screenin:43 Abuse screen: none. Nutritional screening: No deficits noted. Tuberculosis screening: sv1 No symptoms or risk factors identified. Fall Risk None identified. Assessment: 01:49 Pain: Pain does not radiate. Pain began suddenly. sv1 01:50 Reassessment: CC shortness of breath and chest pain. labs collected ,iv started cardiac sv1 monitor is on. . Vital Signs: 01:44 BP 154 / 85; Pulse 74; Resp 16; Temp 98.0; Pulse Ox 98% on R/A; Weight 82.55 kg; Height oe 4 ft. 11 in. (149.86 cm); 02:58 BP 157 / 69; Pulse 75; Resp 18; Pulse Ox 97% on R/A; oe 01:44 Body Mass Index 36.76 (82.55 kg, 149.86 cm) oe ED Course: 00:53 Patient arrived in ED. wm 01:35 Toño Carbajal PA is PHCP. cp 01:35 Anthony Lassiter MD is Attending Physician. cp 01:39 Abner Coon, EDDIE is Primary Nurse. sv1 01:41 Arm band placed on left wrist. sv1 01:43 Patient has correct armband on for positive identification. Placed in gown. Bed in low sv1 position. Call light in reach. Side rails up X2. engine monitor on. Pulse ox on. NIBP on. 01:43 Patient maintains SpO2 saturation greater than 95% on room air. sv1 01:47 EKG done, by ED staff, reviewed by Toño SORIA. lt3 01:48 Triage completed. sv1 02:04 XRAY Chest (1 view) In Process Unspecified. EDMS 02:06 Inserted saline lock: 20 gauge in right antecubital area, using aseptic technique. oe Blood collected. 03:24 No provider procedures requiring assistance completed. sv1 03:25 IV discontinued. sv1 Administered Medications: 03:15 Drug: Ketorolac 15 mg Route: IVP; Site: right antecubital; sv1 03:24 Follow up: Response: No adverse reaction sv1 Outcome: 03:00 Discharge ordered by . cp 03:24 Discharged to home ambulatory. sv1 03:24 Condition: good 03:24 Discharge instructions given to patient. 03:25 Patient left the ED. sv1 Signatures: Dispatcher [employer] EDMS Toño Carbajal PA PA cp Espinosa, [place] oe Jessica Trujillo Lopez, Masha lt3 Abner Coon, RN RN sv1
--- NOTE | 2021-05-01 03:01 | EDPHYS ---
Physician Documentation [facility] Name: Em Butler Age: 61 yrs Sex: Female : 1960 Arrival Date: 05/01/2021 Time: 00:53 Bed 14 Private MD: ED Physician Anthony Lassiter HPI: 05/01 01:45 This 61 yrs old Female presents to ER via Ambulatory with complaints of Chest cp Pain > 30 y/o, Cough, + COVID. 01:45 The patient or guardian reports chest pain that is located primarily in the anterior cp chest wall, bilaterally. 01:45 Onset: today. cp 01:45 The pain does not radiate. Associated signs and symptoms: Pertinent positives: cough, cp shortness of breath, Pertinent negatives: diaphoresis, dizziness, headache, lower extremity pain, lower extremity swelling. The chest pain is described as aching. Modifying factors: the symptoms are aggravated by cough. Patient reports being unvaccinated and testing positive for COVID-19 today. Test performed at [facility]. Historical: - Home Meds: 01:48 gabapentin 300 mg Oral cap 1 cap twice a day [Active]; Lopressor Oral once daily sv1 [Active]; Tramadol Oral [Active]; - PMHx: 01:48 Arthritis; GERD; Hypertension; Sleep Apnea; sv1 - Immunization history:: Adult Immunizations up to date, Client reports having NOT received the Covid vaccine. - Social history:: Smoking status: Patient denies any tobacco usage or history of. ROS: 01:50 Constitutional: Positive for body aches, Negative for fever, poor PO intake. cp 01:50 Eyes: Negative for injury, pain, redness, and discharge. cp 01:50 ENT: Negative for ear pain, sore throat, difficulty swallowing, difficulty handling secretions. 01:50 Cardiovascular: Positive for chest pain, with cough, Negative for edema, palpitations. 01:50 Respiratory: Positive for cough, shortness of breath, Negative for wheezing. 01:50 Abdomen/GI: Negative for abdominal pain, nausea, vomiting, and diarrhea. 01:50 Back: Negative for radiated pain. 01:50 Neuro: Negative for altered mental status, headache, weakness. 01:50 All other systems are negative. Exam: 01:40 ECG was reviewed by the Attending Physician. cp 01:55 Constitutional: The patient appears in no acute distress, alert, awake, comfortable, cp non-diaphoretic, non-toxic, well developed, well nourished, obese. 01:55 Head/Face: Normocephalic, atraumatic. cp 01:55 Eyes: Periorbital structures: appear normal, Conjunctiva: normal, no exudate, no injection, Sclera: no appreciated abnormality, Lids and lashes: appear normal, bilaterally. 01:55 ENT: External ear(s): are unremarkable, Nose: is normal, Mouth: Lips: moist, Oral mucosa: pink and intact, moist, Posterior pharynx: Airway: no evidence of obstruction, patent, Tonsils: are normal in appearance, erythema, is not appreciated, exudate, is not appreciated. 01:55 Neck: ROM/movement: is normal, is supple, without pain, no range of motions limitations, no meningismus. 01:55 Chest/axilla: Inspection: normal. 01:55 Cardiovascular: Rate: normal, Rhythm: regular, Edema: is not appreciated, JVD: is not appreciated. 01:55 Respiratory: the patient does not display signs of respiratory distress, Respirations: normal, no use of accessory muscles, no retractions, labored breathing, is not present, Breath sounds: decreased breath sounds, are not appreciated, stridor, is not appreciated, + upper airway congestion. wheezing: is not appreciated. 01:55 Abdomen/GI: Inspection: obese Palpation: abdomen is soft and non-tender, in all quadrants. 01:55 Back: pain, is absent, ROM is normal. 01:55 Neuro: Orientation: to person, place \T\ time. Mentation: is normal, Motor: moves all fours, strength is normal, Sensation: is normal. Vital Signs: 01:44 BP 154 / 85; Pulse 74; Resp 16; Temp 98.0; Pulse Ox 98% on R/A; Weight 82.55 kg; Height oe 4 ft. 11 in. (149.86 cm); 02:58 BP 157 / 69; Pulse 75; Resp 18; Pulse Ox 97% on R/A; oe 01:44 Body Mass Index 36.76 (82.55 kg, 149.86 cm) oe MDM: 01:43 Patient medically screened. cp 03:00 Data reviewed: vital signs, nurses notes, lab test result(s), EKG, radiologic studies, cp plain films. 03:00 The patient was given aspirin in the Emergency Department. Test interpretation: by ED cp physician or midlevel provider: plain radiologic studies. Counseling: I had a detailed discussion with the patient and/or guardian regarding: the historical points, exam findings, and any diagnostic results supporting the discharge/admit diagnosis, lab results, radiology results, to return to the emergency department if symptoms worsen or persist or if there are any questions or concerns that arise at home. ED course: VSS. Patient appears non-toxic and no signs of respiratory distress. Will discharge to home for continued monitoring. 05/01 01:43 Order name: Basic Metabolic Panel; Complete Time: 02:37 05/01 02:37 Interpretation: Normal except: GLUC 112. 05/01 01:43 Order name: CBC with Diff; Complete Time: 02:37 05/01 02:37 Interpretation: Normal except: MPV 7.5. 05/01 01:43 Order name: LFT's; Complete Time: 02:37 05/01 02:37 Interpretation: Normal except: ALB 3.3; GLOB 4.1; A/G 0.8. 05/01 01:43 Order name: Magnesium; Complete Time: 02:37 05/01 01:43 Order name: NT PRO-BNP; Complete Time: 02:37 05/01 02:38 Interpretation: Abnormal: NT PRO-BNP 177. 05/01 01:43 Order name: PT-INR; Complete Time: 02:37 05/01 01:43 Order name: Troponin (emerg Dept Use Only); Complete Time: 02:37 05/01 02:38 Interpretation: Reviewed. 05/01 01:43 Order name: XRAY Chest (1 view) 05/01 01:43 Order name: EKG; Complete Time: 01:44 05/01 01:43 Order name: Cardiac monitoring; Complete Time: 01:47 05/01 01:43 Order name: EKG - Nurse/Tech; Complete Time: 01:47 05/01 01:44 Order name: CRP; Complete Time: 02:37 05/01 02:38 Interpretation: Abnormal: C-REACTIVE PROT 12.70. 05/01 01:44 Order name: Ferritin; Complete Time: 02:37 05/01 01:43 Order name: IV Saline Lock; Complete Time: 02:06 cp 05/01 01:43 Order name: Labs collected and sent; Complete Time: 02:06 cp 05/01 01:43 Order name: O2 Per Protocol; Complete Time: 03:24 cp 05/01 01:43 Order name: O2 Sat Monitoring; Complete Time: 03:24 cp EC:40 Rate is 76 beats/min. Rhythm is regular. NE interval is normal. QRS interval is normal. cp QT interval is normal. Interpreted by me. Reviewed by me. Administered Medications: 03:15 Drug: Ketorolac 15 mg Route: IVP; Site: right antecubital; sv1 03:24 Follow up: Response: No adverse reaction sv1 Disposition: 05:49 Co-signature as Attending Physician, Anthony Lassiter MD. pkl Disposition Summary: 05/01/21 03:00 Discharge Ordered Location: Home cp Problem: new cp Symptoms: have improved cp Condition: Stable cp Diagnosis - SARS-associated coronavirus as the cause of diseases classified elsewhere cp - Chest pain, unspecified cp Followup: cp - With: Private Physician - When: 1 - 2 days - Reason: Recheck today's complaints Discharge Instructions: - Discharge Summary Sheet cp - Nonspecific Chest Pain, Adult cp - Aspirin and Your Heart cp - COVID-19 cp - Things to Know about the COVID-19 Pandemic - [facility] cp - 10 Things You Can Do to Manage Your COVID-19 Symptoms at Home - [facility] cp - COVID-19: Quarantine vs. Isolation - [facility] cp - Prevent the Spread of COVID-19 if You Are Sick - [facility] cp Forms: - Medication Reconciliation Form cp - Thank You Letter cp - Antibiotic Education cp - Prescription Opioid Use cp Prescriptions: - albuterol sulfate 90 mcg/actuation Inhalation HFA aerosol inhaler - inhale 2 puff by INHALATION route every 6 hours; 1 Inhaler; Refills: 0, Product cp Selection Permitted - Tessalon Perles 100 mg Oral Capsule - take 2 capsule by ORAL route every 8 hours As needed; 30 capsule; Refills: 0, cp Product Selection Permitted - Zithromax Z-Alcides 250 mg Oral Tablet - take 1 tablet by ORAL route as directed for 5 days Day 1 - take two (2) tablets cp one time. Day 2, 3, 4 , 5 take one (1) tablet once daily.; 6 tablet; Refills: 0, Product Selection Permitted Signatures: Dispatcher [employer] Anthony Valdez MD MD pkl Toño Carbajal PA PA cp Villicano, Steven RN RN sv1
[2021-05-01] MEDS ORDERED: KETOROLAC 30 MG/ML INJ ONE (03:12)
[2021-05-01 03:32] VITALS: TEMP 98
[2021-05-01 03:34] VITALS: BP 157/69; O2SAT 97
--- NOTE | 2021-05-01 08:34 | RAD REPORT ---
EXAM DESCRIPTION: RAD - Chest Single View - 05/01/2021 2:04 am CLINICAL HISTORY: Chest pain;SOB Chest pain. COMPARISON: Chest Single View dated 10/07/2020; Chest Single View dated 03/04/2017; Chest Single View dated 09/01/2015; CHEST SINGLE VIEW dated 08/09/2013 FINDINGS: Portable technique limits examination quality. Mild interstitial lung opacities are present. The heart is mildly enlarged in size. No displaced frac tures. IMPRESSION: Mild CHF.
== END 2021-05-01 03:25 | disposition home or self-care (01) ==
LOC: ER 00:47
DX: U07.1 COVID-19 (principal); R07.9 Chest pain, unspecified; I10 Essential (primary) hypertension
CPT/HCPCS: 36415; 71045; 80048; 80076; 82728; 83735; 83880; 84484; 85025; 85610; 86140; 93005; 96374; 99285

== ENCOUNTER 2021-05-14 11:54 | Emergency (ER) | payer SELFPAY ==
--- OUTSIDE RECORDS SUMMARY | 2021-05-14 11:57 | XMS REPORT | Continuity of Care Document ---
:1960 Author Organization [facility] t Address [address] [place] [address] Dr. Carballo [address] [place] [id number] Care Team Providers Name Role Phone Raju_P Attending Clinician Unavailable Raju_P Admitting Clinician Unavailable Payers Payer Name Policy Type Policy Number Effective Date Expiration Date [place] [id number] 2013 00:00:00 [place] Problems This patient has no known problems. Allergies, Adverse Reactions, Alerts This patient has no known allergies or adverse reactions. Medications This patient has no known medications. Procedures This patient has no known procedures. Encounters Start End Encounter Admission Attending Care Care Encounter Source Date/Time Date/Time Type Type Clinicians Facility Department ID 2019-05-28 2019-05-28 Outpatient Raju_P [id number] [place] 12:48:00 12:48:00 [id number] Results Test Description Test Time Test Comments Results Result [facility] e Comments BREAST ULTRASOUND 2018-09-15 [...] to exam dated 08/25/2018 ultrasound - [facility]-. An ultrasound guided biopsy using [...] for excision. Amado Eugene M.D.pl,cc/:09/15/2018 09:37:50 Entry: - 09/16/2018 14:25:14copy to: Phil Martinez MD, ph: [phone], fax: [phone] Technologist: Saundra Ferreira, [facility]-RGletter sent: Surgical Consult [facility] DIAG MAMM RIGHT 2018-09-09 - DIAG MAMM RIGHT CAD CAD DIGITAL 09:12:32 DIGITALUNILATERAL RIGHT DIGITAL DIAGNOSTIC MAMMOGRAM WITH CAD - RIGHT BREAST POST-PROCEDURE IMAGING FOR MARKER PLACEMENT: 09/09/2018CLINICAL: Post clip placement right. Current mammographic images were evaluated by either a LeanWagon M-Vu or a CourseWeaver ImageChecker CAD (computer aided detection system). Comparison is made to exam dated 09/09/2018 ultrasound biopsy - [facility]. The tissue of the right breast is predominantly fatty. There is a marker clip in the appropriate position in the right breast. This marker clip placement is at biopsy site. IMPRESSION: POST PROCEDURE IMAGING FOR MARKER PLACEMENTThere was a successful marker clip placement in the right breast. Amado Roberto M.D. pl/:09/09/2018 09:12:32 copy to: Phil Martinez MD, ph: [phone], fax: [phone] Technologist: Yessenia ULRICH, [facility]-RGMammogram BI-RADS: Post-procedure mammogram for marker [...] 08/28/2018 11:09:58copy to: Phil Martinez MD, ph: [phone], fax: [phone] Technologist: Saundra Ferreira, [facility]-RGletter sent: BIRADS 4/5 Biopsy Ultrasound BI-RADS: 4c Suspicious abnormality - moderate concern but not classic for malignancy SCR MAMM 2018-06-10 - SCR MAMM BILATERAL BILATERAL ROB 13:16:36 ROB CAD CAD DIGITAL DIGITALBILATERAL DIGITAL SCREENING MAMMOGRAM 3D/2D WITH CAD: 05/29/2018CLINICAL: Asymptomatic. Digital breast tomosynthesis was performed in addition to routine CC and MLO views. Current mammographic images were evaluated by either a VuCOMP M-Vu or a CourseWeaver ImageChecker CAD (computer aided detection system). Comparison is made to exam dated 11/08/2008 mammogram - [facility]. The tissue of both breasts is predominantly [...] 13:16:36 copy to: Phil Martinez MD, ph: [phone], fax: [phone] Technologist: Ruthie Montoya MM, [facility] Mammographyletter sent: Additional Imaging Mammogram BI-RADS: 0 Indeterminate
[2021-05-14 12:51] LABS: Absolute Lymphocytes (CBC) 2.3 K/uL (0.7-4.9); Hematocrit 36.7 % (36.0-45.0); MPV 6.7 fL (7.6-11.3); RBC Red Blood Cell Count 4.08 M/uL (3.86-4.86)
[2021-05-14 12:53] LABS: Protime INR 1.08
--- NOTE | 2021-05-14 13:16 | RAD REPORT ---
EXAM DESCRIPTION: RAD - Chest Single View - 05/14/2021 1:09 pm CLINICAL HISTORY: COVID, SOB Chest pain. COMPARISON: Chest Single View dated 05/01/2021; Chest Single View dated 10/07/2020; Chest Single View dated 03/04/2017; Chest Single View dated 09/01/2015 FINDINGS: Portable technique limits examination quality. Mild to moderate bilateral pulmonary opacities are present which may represent viral infection or pul monary edema. The heart is mildly enlarged in size. No displaced fractures.
[2021-05-14 13:58] LABS: ALT/SGPT 26 U/L (12-78); AST/SGOT 16 U/L (15-37); Alkaline Phosphatase 81 U/L (45-117); BUN Blood Urea Nitrogen 19 mg/dL (7-18); Bicarbonate 25 mmol/L (21-32); Bilirubin Direct 0.1 mg/dL (0-0.2); Bilirubin Total 0.4 mg/dL (0.2-1.0); Glucose Level 102 mg/dL (74-106); Magnesium 1.9 mg/dL (1.8-2.4); NT PRO-BNP 188 pg/mL (<125); Potassium 3.9 mmol/L (3.5-5.1); Protein, Total 7.2 g/dL (6.4-8.2); Sodium Level 141 mmol/L (136-145); Troponin (Emerg Dept Use Only) < 0.02 ng/mL (0.0-0.045)
--- NOTE | 2021-05-14 14:21 | ER ---
Nurse's Notes [facility] Name: Em Butler Age: 61 yrs Sex: Female : 1960 Arrival Date: 05/14/2021 Time: 11:56 Bed 30 Private MD: Diagnosis: Coronavirus infection, unspecified Presentation: 05/14 12:09 Chief complaint: Patient states: Continued SOB since her last visit here 05/01. ll1 Finished the antibiotics, steroids, and cough med. Just not getting better. Coronavirus screen: Vaccine status: Patient reports being unvaccinated. Client denies travel out of the [place] in the last 14 days. cough unrelated to allergies, fatigue, headache, muscle pain, shaking with chills, sore throat, Client presents with at least one sign or symptom that may indicate coronavirus-19. Standard/surgical mask placed on the client. Ebola Screen: Patient denies travel to an Ebola-affected area in the 21 days before illness onset. Initial Sepsis Screen: Does the patient meet any 2 criteria? No. Patient's initial sepsis screen is negative. Does the patient have a suspected source of infection? Yes: Productive cough/pneumonia. Risk Assessment: Do you want to hurt yourself or someone else? Patient reports no desire to harm self or others. Onset of symptoms was April 30, 2021. 12:09 Method Of Arrival: Ambulatory ll1 12:09 Acuity: ANNY 3 ll1 Historical: - Allergies: 12:11 No Known Allergies; ll1 - PMHx: 12:11 Arthritis; GERD; Hypertension; Sleep Apnea; ll1 - PSHx: 12:11 Cholecystectomy; hysterectomy; ll1 - Immunization history:: Client reports having NOT received the Covid vaccine. Flu vaccine is not up to date. - Social history:: Smoking status: Patient denies any tobacco usage or history of. Screenin:26 Abuse screen: Denies threats or abuse. Denies injuries from another. Nutritional ic1 screening: No deficits noted. Tuberculosis screening: No symptoms or risk factors identified. Fall Risk None identified. Exposure risk/Travel Screening: None identified. Assessment: 12:26 General: Appears in no apparent distress. uncomfortable, Behavior is calm, cooperative. ic1 Pain: Denies pain. Neuro: No deficits noted. Cardiovascular: Rhythm is sinus rhythm. Respiratory: Airway is patent Respiratory effort is even, labored, Respiratory pattern is regular, symmetrical. GI: No deficits noted. : No deficits noted. EENT: No deficits noted. Derm: No deficits noted. Musculoskeletal: Reports Generalized weakness and fatigue. Vital Signs: 12:09 BP 147 / 69; Pulse 86; Resp 18; Temp 97.8; Pulse Ox 96% on R/A; Weight 126.1 kg; Height ll1 4 ft. 11 in. (149.86 cm); Pain 8/10; 12:26 Pulse 77; Resp 22; Pulse Ox 98% on R/A; ic1 14:37 BP 141 / 73; Pulse 80; Resp 17; Pulse Ox 96% on R/A; Pain 0/10; ab2 12:09 Body Mass Index 56.15 (126.10 kg, 149.86 cm) ll1 ED Course: 11:56 Patient arrived in ED. mr 12:11 Triage completed. ll1 12:11 Arm band placed on. ll1 12:20 Yecenia Alonso FNP-C is [facility]. kb 12:20 Claudy Peters MD is Attending Physician. kb 12:26 Patient has correct armband on for positive identification. Bed in low position. Call ic1 light in reach. 12:41 Basic Metabolic Panel Sent. ic1 12:41 CBC with Diff Sent. ic1 12:41 LFT's Sent. ic1 12:41 Magnesium Sent. ic1 12:41 NT PRO-BNP Sent. ic1 12:41 PT-INR Sent. ic1 12:41 Troponin (emerg Dept Use Only) Sent. ic1 13:09 XRAY Chest (1 view) In Process Unspecified. EDMS 13:34 Troponin (emerg Dept Use Only) Sent. ic1 13:34 NT PRO-BNP Sent. ic1 13:34 Magnesium Sent. ic1 13:34 LFT's Sent. ic1 13:34 Basic Metabolic Panel Sent. ic1 13:34 Inserted saline lock: 20 gauge in left forearm, using aseptic technique. Blood ic1 collected. 14:38 IV discontinued, intact, bleeding controlled, No redness/swelling at site. Pressure ab2 dressing applied. 14:38 No provider procedures requiring assistance completed. ab2 Administered Medications: No medications were administered Outcome: 14:21 Discharge ordered by . kb 14:38 Discharged to home ambulatory. ab2 14:38 Condition: good 14:38 Discharge instructions given to patient, Instructed on discharge instructions, follow up and referral plans. Demonstrated understanding of instructions, follow-up care. 14:38 Patient left the ED. ab2 Signatures: Dispatcher [employer] EDYecenia Koch, DIRECTOR OF PURCHASING-C DIRECTOR OF PURCHASING-Nereyda Tejada Nataliia Smith, RN RN ll1 Mckenzie Mora RN RN ic1 Reid Cardenas ab2
--- NOTE | 2021-05-14 14:22 | EDPHYS ---
Physician Documentation [facility] Name: Em Butler Age: 61 yrs Sex: Female : 1960 Arrival Date: 05/14/2021 Time: 11:56 Bed 30 Private MD: ED Physician Claudy Peters HPI: 05/14 14:19 This 61 yrs old Female presents to ER via Ambulatory with complaints of kb Covid+, Shortness Of Breath, Cough. 14:19 The patient or guardian reports cough, that is intermittent, described as mild, kb difficulty breathing. Onset: The symptoms/episode began/occurred 2 week(s) ago. Severity of symptoms: At their worst the symptoms were moderate, in the emergency department the symptoms are unchanged. Modifying factors: The symptoms are alleviated by nothing, the symptoms are aggravated by nothing. Associated signs and symptoms: The patient has no apparent associated signs or symptoms. The patient has not experienced similar symptoms in the past. The patient has not recently seen a physician. Pt states she has had covid since May 01. States she is still having symptoms and testing positive.. Historical: - Allergies: 12:11 No Known Allergies; ll1 - PMHx: 12:11 Arthritis; GERD; Hypertension; Sleep Apnea; ll1 - PSHx: 12:11 Cholecystectomy; hysterectomy; ll1 - Immunization history:: Client reports having NOT received the Covid vaccine. Flu vaccine is not up to date. - Social history:: Smoking status: Patient denies any tobacco usage or history of. ROS: 14:18 Constitutional: Negative for fever, chills, and weight loss. kb 14:18 Respiratory: Positive for cough, dyspnea on exertion, shortness of breath, Negative for hemoptysis, orthopnea, pleurisy, sputum production, wheezing. 14:18 All other systems are negative. Exam: 14:19 Constitutional: This is a well developed, well nourished patient who is awake, alert, kb and in no acute distress. Head/Face: Normocephalic, atraumatic. ENT: Moist Mucous membranes Cardiovascular: Regular rate and rhythm with a normal S1 and S2. No gallops, murmurs, or rubs. No pulse deficits. Respiratory: Respirations even and unlabored. No increased work of breathing. Talking in full sentences Skin: Warm, dry with normal turgor. Normal color. MS/ Extremity: Pulses equal, no cyanosis. Neurovascular intact. Full, normal range of motion. Neuro: Awake and alert, GCS 15, oriented to person, place, time, and situation. Moves all extremities. Normal gait. Psych: Awake, alert, with orientation to person, place and time. Behavior, mood, and affect are within normal limits. Vital Signs: 12:09 BP 147 / 69; Pulse 86; Resp 18; Temp 97.8; Pulse Ox 96% on R/A; Weight 126.1 kg; Height ll1 4 ft. 11 in. (149.86 cm); Pain 8/10; 12:26 Pulse 77; Resp 22; Pulse Ox 98% on R/A; ic1 14:37 BP 141 / 73; Pulse 80; Resp 17; Pulse Ox 96% on R/A; Pain 0/10; ab2 12:09 Body Mass Index 56.15 (126.10 kg, 149.86 cm) ll1 MDM: 12:20 Patient medically screened. kb 14:18 Data reviewed: vital signs, nurses notes. Data interpreted: Pulse oximetry: on room air kb is 98 %. Interpretation: normal. Counseling: I had a detailed discussion with the patient and/or guardian regarding: the historical points, exam findings, and any diagnostic results supporting the discharge/admit diagnosis, lab results, radiology results, the need for outpatient follow up, a family practitioner, to return to the emergency department if symptoms worsen or persist or if there are any questions or concerns that arise at home. 05/14 12:31 Order name: Basic Metabolic Panel; Complete Time: 14:10 kb 05/14 12:31 Order name: CBC with Diff; Complete Time: 12:54 kb 05/14 12:31 Order name: LFT's; Complete Time: 14:10 kb 05/14 12:31 Order name: Magnesium; Complete Time: 14:10 kb 05/14 12:31 Order name: NT PRO-BNP; Complete Time: 14:10 kb 05/14 12:31 Order name: PT-INR; Complete Time: 12:54 kb 05/14 12:14 Order name: XRAY Chest (1 view); Complete Time: 13:23 rn 05/14 12:31 Order name: Troponin (emerg Dept Use Only); Complete Time: 14:10 kb 05/14 12:31 Order name: EKG; Complete Time: 12:32 kb 05/14 12:31 Order name: Cardiac monitoring; Complete Time: 12:41 kb 05/14 12:31 Order name: EKG - Nurse/Tech; Complete Time: 13:34 kb 05/14 12:31 Order name: IV Saline Lock; Complete Time: 13:34 kb 05/14 12:31 Order name: Labs collected and sent; Complete Time: 12:41 kb 05/14 12:31 Order name: O2 Per Protocol; Complete Time: 12:32 kb 05/14 12:31 Order name: O2 Sat Monitoring; Complete Time: 12:32 kb 05/14 13:02 Order name: Labs - recollect needed: recollect c7; Complete Time: 13:34 bd Administered Medications: No medications were administered Disposition: 15:27 Co-signature as Attending Physician, Claudy Peters MD I agree with the assessment and rn plan of care. Attestation: The patient's history, exam findings, diagnostics, and a summary of any interventions or procedures was reviewed in detail with Yecenia PARK. Disposition Summary: 05/14/21 14:21 Discharge Ordered Location: Home kb Condition: Stable kb Diagnosis - Coronavirus infection, unspecified kb Followup: kb - With: Emergency Department - When: As needed - Reason: Worsening of condition Followup: kb - With: Private Physician - When: 2 - 3 days - Reason: Recheck today's complaints, Continuance of care, Re-evaluation by your physician Discharge Instructions: - Discharge Summary Sheet kb - Viral Respiratory Infection, Sgra-Na-Fyvc kb - COVID-19 kb Forms: - Medication Reconciliation Form kb - Thank You Letter kb - Antibiotic Education kb - Prescription Opioid Use kb Signatures: Dispatcher [employer] EDMS Yecenia Alonso FNP-C FNP-Noris Martinez Roman, MD MD rn Lewis, Lynsay, RN RN ll1 Corrections: (The following items were deleted from the chart) 12:32 12:32 BASIC METABOLIC PANEL+C.LAB.BRZ ordered. EDMS EDMS 12:32 12:32 CBC+H.LAB.BRZ ordered. EDMS EDMS 12:32 12:32 HEPATIC FUNCTION+C.LAB.BRZ ordered. EDMS EDMS 12:33 12:32 MAGNESIUM+C.LAB.BRZ ordered. EDMS EDMS
[2021-05-14 15:14] VITALS: TEMP 97.8
[2021-05-14 15:23] VITALS: BP 141/73; O2SAT 96
--- NOTE | 2021-05-16 07:51 | EKG ---
Test Date: 2021-05-14 Test Time: 13:27:17 Hairspring Assembler: KV MEASUREMENT RESULTS: Intervals: Rate: 79 [place]: 174 QRSD: 72 QT: 406 QTc: 465 [place]: P: 64 [place]: 174 QRS: 23 T: 47 INTERPRETIVE STATEMENTS: Sinus rhythm with premature atrial complexes Otherwise normal ECG Compared to ECG 05/14/2021 13:26:13 Atrial premature complex(es) now present Electronically Signed On 05-16-21 07:46:09 APPLICATION PACKAGING CONSULTANT by Maxi Sharpe
--- NOTE | 2021-05-16 07:52 | EKG ---
Test Date: 2021-05-14 Test Time: 13:26:13 Asphalt Paving Machine Operator: KV MEASUREMENT RESULTS: Intervals: Rate: 79 NV: 182 QRSD: 72 QT: 382 QTc: 438 [place]: P: 63 [place]: 182 QRS: 21 T: 48 INTERPRETIVE STATEMENTS: Normal sinus rhythm Normal ECG Compared to ECG 05/01/2021 01:32:30 No significant changes Electronically Signed On 05-16-21 07:46:10 CRITICAL CARE NURSE by Maxi Sharpe
== END 2021-05-14 14:38 | disposition home or self-care (01) ==
LOC: ER 11:54
DX: U07.1 COVID-19 (principal); I10 Essential (primary) hypertension
CPT/HCPCS: 36415; 71045; 80048; 80076; 83735; 83880; 84484; 85025; 85610; 93005; 99284

== ENCOUNTER 2022-03-31 02:59 | Emergency (ER) | payer SELFPAY ==
--- OUTSIDE RECORDS SUMMARY | 2022-03-31 03:08 | XMS REPORT | Continuity of Care Document ---
:1960 Author Organization [facility] t Address [address] [place] [address] Care Team Providers Name Role Phone Sandeep Mccollum Primary Care Physician [phone] Anjel_Sujata Attending Clinician Unavailable Charanu_P Admitting Clinician Unavailable Payers Payer Name Policy Type Policy Number Effective Date Expiration Date S our[place] [id number] 2013 00:00:00 [place] (PPO[place] Problems This patient has no known problems. Allergies, Adverse Reactions, Alerts This patient has no known allergies or adverse reactions. Medications Ordered Filled Start Stop Current Ordering Indication Dosage Frequency Signature Comments Components Source Medication Medication Date Date Medication? Clinician (SIG) Name Name TAKE 1 2021-05 No CAPSULE 0-20 TWICE DAILY 00:00: NEEDED. 00 Dose 2021-0 No Unknown 8- 00:00: 00 Dose 2021-0 No Unknown 8- 00:00: 00 Dose 2021-0 No Unknown 8-09 00:00: 00 Dose 2021-0 No Unknown 8-09 00:00: 00 Dose 2021-0 No Unknown 7-30 00:00: 00 Dose 2021-0 No Unknown 7-30 00:00: 00 Dose 2021-0 No Unknown 7-30 00:00: 00 Dose 2021-0 No Unknown 7-30 00:00: 00 Dose 2021-0 No Unknown 7-30 00:00: 00 Dose 2021-0 No Unknown 7-30 00:00: 00 Dose 2021-0 No Unknown 7-30 00:00: 00 Dose 2021-0 No Unknown 7-30 00:00: 00 Dose 2021-0 No Unknown 7-30 00:00: 00 Dose 2021-0 No Unknown 7-30 00:00: 00 Dose 2022-0 No Unknown 7-30 00:00: 00 Dose 2022-0 No Unknown 7-30 00:00: 00 Dose 2022-0 No Unknown 7-30 00:00: 00 Dose 2022-0 No Unknown 7-30 00:00: 00 Dose 2022-0 No Unknown 7-30 00:00: 00 Dose 2022-0 No Unknown 7-30 00:00: 00 Dose 2022-0 No Unknown 7-30 00:00: 00 Dose 2022-0 No Unknown 7-30 00:00: 00 Dose 2022-0 No Unknown 7-30 00:00: 00 Dose 2022-0 No Unknown 7-30 00:00: 00 Dose 2022-0 No Unknown 5-18 00:00: 00 Dose 2022-0 No Unknown 5-18 00:00: 00 Dose 2022-0 No Unknown 5-18 00:00: 00 Dose 2022-0 No Unknown 5-18 00:00: 00 Dose 2022-0 No Unknown 5-18 00:00: 00 Dose 2022-0 No Unknown 5-18 00:00: 00 Dose 2022-0 No Unknown 5-18 00:00: 00 Dose 2022-0 No Unknown 5-18 00:00: 00 Dose 2022-0 No Unknown 5-18 00:00: 00 Dose 2022-0 No Unknown 5-18 00:00: 00 ProAir HFA 2-0 No 12mcg/a 90 5-05 ctuatio mcg/actuati 00:00: n on aerosol 00 inhaler Advair 2021-0 No 1mcg/do Diskus 250 5-05 se mcg-50 00:00: mcg/dose 00 powder for inhalation ProAir HFA 2021-0 No 12mcg/a 90 5-05 ctuatio mcg/actuati 00:00: n on aerosol 00 inhaler Advair 2021-0 No 1mcg/do Diskus 250 5-05 se mcg-50 00:00: mcg/dose 00 powder for inhalation ProAir HFA 2021-0 No 12mcg/a 90 5-05 ctuatio mcg/actuati 00:00: n on aerosol 00 inhaler Advair 2021-0 No 1mcg/do Diskus 250 5-05 se mcg-50 00:00: mcg/dose 00 powder for inhalation ProAir HFA 2022-0 No 12mcg/a 90 5-05 ctuatio mcg/actuati 00:00: n on aerosol 00 inhaler Advair 2022-0 No 1mcg/do Diskus 250 5-05 se mcg-50 00:00: mcg/dose 00 powder for inhalation ProAir HFA 2022-0 No 12mcg/a 90 5-05 ctuatio mcg/actuati 00:00: n on aerosol 00 inhaler Advair 2022-0 No 1mcg/do Diskus 250 5-05 se mcg-50 00:00: mcg/dose 00 powder for inhalation azithromyci 2022-0 No mg n 250 mg 4-19 tablet 00:00: 00 azithromyci 2022-0 No mg n 250 mg 4-19 tablet 00:00: 00 azithromyci 2022-0 No mg n 250 mg 4-19 tablet 00:00: 00 azithromyci 2022-0 No mg n 250 mg 4-19 tablet 00:00: 00 azithromyci 2022-0 No mg n 250 mg 4-19 tablet 00:00: 00 Bromfed DM 2022-0 No 10mg/5 2 mg-30 4-14 mL mg-10 mg/5 00:00: mL oral 00 syrup Dose 2022-0 No Unknown 4-14 00:00: 00 Dose 2022-0 No Unknown 4-14 00:00: 00 Dose 2022-0 No Unknown 4-14 00:00: 00 Dose 2022-0 No Unknown 4-14 00:00: 00 Bromfed DM 2022-0 No 10mg/5 2 mg-30 4-14 mL mg-10 mg/5 00:00: mL oral 00 syrup Dose 2022-0 No Unknown 4-14 00:00: 00 Dose 2022-0 No Unknown 4-14 00:00: 00 Dose 2022-0 No Unknown 4-14 00:00: 00 Dose 2022-0 No Unknown 4-14 00:00: 00 Bromfed DM 2022-0 No 10mg/5 2 mg-30 4-14 mL mg-10 mg/5 00:00: mL oral 00 syrup Dose 2022-0 No Unknown 4-14 00:00: 00 Dose 2022-0 No Unknown 4-14 00:00: 00 Dose 2022-0 No Unknown 4-14 00:00: 00 Dose 2022-0 No Unknown 4-14 00:00: 00 Bromfed DM 2022-0 No 10mg/5 2 mg-30 4-14 mL mg-10 mg/5 00:00: mL oral 00 syrup Dose 2022-0 No Unknown 4-14 00:00: 00 Dose 2022-0 No Unknown 4-14 00:00: 00 Dose 2022-0 No Unknown 4-14 00:00: 00 Dose 2022-0 No Unknown 4-14 00:00: 00 Bromfed DM 2-0 No 10mg/5 2 mg-30 4-14 mL mg-10 mg/5 00:00: mL oral 00 syrup Dose 2022-0 No Unknown 4-14 00:00: 00 Dose 2022-0 No Unknown 4-14 00:00: 00 Dose 2022-0 No Unknown 4-14 00:00: 00 Dose 2022-0 No Unknown 4-14 00:00: 00 Dose 2022-0 No Unknown 3-16 00:00: 00 Dose 2022-0 No Unknown 3-16 00:00: 00 Dose 2022-0 No Unknown 3-16 00:00: 00 Dose 2022-0 No Unknown 3-16 00:00: 00 Dose 2022-0 No Unknown 3-16 00:00: 00 Dose 2022-0 No Unknown 3-16 00:00: 00 Dose 2022-0 No Unknown 3-16 00:00: 00 Dose 2022-0 No Unknown 3-16 00:00: 00 Farxiga 10 2-0 No 1mg mg tablet 3-16 00:00: 00 carvedilol 2022-0 No 1mg 12.5 mg 3-16 tablet 00:00: 00 hydralazine 2022-0 No 1mg 50 mg 3-16 tablet 00:00: 00 furosemide 2022-0 No 1mg 20 mg 3-16 tablet 00:00: 00 Dose 2022-0 No Unknown 3-16 00:00: 00 Dose 2022-0 No Unknown 3-16 00:00: 00 Dose 2022-0 No Unknown 3-16 00:00: 00 Dose 2022-0 No Unknown 3-16 00:00: 00 Dose 2022-0 No Unknown 3-16 00:00: 00 Dose 2022-0 No Unknown 3-16 00:00: 00 Dose 2022-0 No Unknown 3-16 00:00: 00 Dose 2022-0 No Unknown 3-16 00:00: 00 Dose 2022-0 No Unknown 3-16 00:00: 00 Dose 2022-0 No Unknown 3-16 00:00: 00 Dose 2022-0 No Unknown 3-16 00:00: 00 Dose 2022-0 No Unknown 3-16 00:00: 00 Dose 2022-0 No Unknown 3-16 00:00: 00 Dose 2022-0 No Unknown 3-16 00:00: 00 Dose 2022-0 No Unknown 3-16 00:00: 00 Dose 2022-0 No Unknown 3-16 00:00: 00 Dose 2022-0 No Unknown 3-16 00:00: 00 Dose 2022-0 No Unknown 3-16 00:00: 00 Dose 2022-0 No Unknown 3-16 00:00: 00 Dose 2022-0 No Unknown 3-16 00:00: 00 Dose 2022-0 No Unknown 3-16 00:00: 00 Dose 2022-0 No Unknown 3-16 00:00: 00 Dose 2022-0 No Unknown 3-16 00:00: 00 Dose 2022-0 No Unknown 3-16 00:00: 00 Dose 2022-0 No Unknown 3-16 00:00: 00 Dose 2022-0 No Unknown 3-16 00:00: 00 Dose 2022-0 No Unknown 3-16 00:00: 00 Dose 2022-0 No Unknown 3-16 00:00: 00 Dose 2022-0 No Unknown 3-16 00:00: 00 Dose 2022-0 No Unknown 3-16 00:00: 00 Farxiga 10 2-0 No 1mg mg tablet 3-16 00:00: 00 carvedilol 2022-0 No 1mg 12.5 mg 3-16 tablet 00:00: 00 hydralazine 2022-0 No 1mg 50 mg 3-16 tablet 00:00: 00 furosemide 2022-0 No 1mg 20 mg 3-16 tablet 00:00: 00 Dose 2022-0 No Unknown 3-16 00:00: 00 Dose 2022-0 No Unknown 3-16 00:00: 00 Dose 2022-0 No Unknown 3-16 00:00: 00 Dose 2022-0 No Unknown 3-16 00:00: 00 Dose 2022-0 No Unknown 3-16 00:00: 00 Dose 2022-0 No Unknown 3-16 00:00: 00 Dose 2022-0 No Unknown 3-16 00:00: 00 Dose 2022-0 No Unknown 3-16 00:00: 00 Dose 2022-0 No Unknown 3-16 00:00: 00 Dose 2022-0 No Unknown 3-16 00:00: 00 Dose 2022-0 No Unknown 3-16 00:00: 00 Dose 2022-0 No Unknown 3-16 00:00: 00 Dose 2022-0 No Unknown 3-16 00:00: 00 Dose 2022-0 No Unknown 3-16 00:00: 00 Dose 2022-0 No Unknown 3-16 00:00: 00 Dose 2022-0 No Unknown 3-16 00:00: 00 Dose 2022-0 No Unknown 3-16 00:00: 00 Dose 2022-0 No Unknown 3-16 00:00: 00 Dose 2022-0 No Unknown 3-16 00:00: 00 Dose 2022-0 No Unknown 3-16 00:00: 00 Dose 2022-0 No Unknown 3-16 00:00: 00 Dose 2022-0 No Unknown 3-16 00:00: 00 Dose 2022-0 No Unknown 3-16 00:00: 00 Dose 2022-0 No Unknown 3-16 00:00: 00 Dose 2022-0 No Unknown 3-16 00:00: 00 Dose 2022-0 No Unknown 3-16 00:00: 00 Dose 2022-0 No Unknown 3-16 00:00: 00 Dose 2022-0 No Unknown 3-16 00:00: 00 Dose 2022-0 No Unknown 3-16 00:00: 00 Dose 2022-0 No Unknown 3-16 00:00: 00 Farxiga 10 2022-0 No 1mg mg tablet 3-16 00:00: 00 Farxiga 10 2022-0 No 1mg mg tablet 3-16 00:00: 00 carvedilol 2022-0 No 1mg 12.5 mg 3-16 tablet 00:00: 00 carvedilol 2022-0 No 1mg 12.5 mg 3-16 tablet 00:00: 00 hydralazine 2022-0 No 1mg 50 mg 3-16 tablet 00:00: 00 furosemide 2022-0 No 1mg 20 mg 3-16 tablet 00:00: 00 Dose 2022-0 No Unknown 3-16 00:00: 00 Dose 2022-0 No Unknown 3-16 00:00: 00 Dose 2022-0 No Unknown 3-16 00:00: 00 Dose 2022-0 No Unknown 3-16 00:00: 00 Dose 2022-0 No Unknown 3-16 00:00: 00 Dose 2022-0 No Unknown 3-16 00:00: 00 Dose 2022-0 No Unknown 3-16 00:00: 00 hydralazine 2022-0 No 1mg 50 mg 3-16 tablet 00:00: 00 Dose 2022-0 No Unknown 3-16 00:00: 00 Dose 2022-0 No Unknown 3-16 00:00: 00 Dose 2022-0 No Unknown 3-16 00:00: 00 Dose 2022-0 No Unknown 3-16 00:00: 00 Dose 2022-0 No Unknown 3-16 00:00: 00 Dose 2022-0 No Unknown 3-16 00:00: 00 Dose 2022-0 No Unknown 3-16 00:00: 00 Dose 2022-0 No Unknown 3-16 00:00: 00 Dose 2022-0 No Unknown 3-16 00:00: 00 Dose 2022-0 No Unknown 3-16 00:00: 00 furosemide 2022-0 No 1mg 20 mg 3-16 tablet 00:00: 00 Dose 2022-0 No Unknown 3-16 00:00: 00 Dose 2022-0 No Unknown 3-16 00:00: 00 Dose 2022-0 No Unknown 3-16 00:00: 00 Dose 2022-0 No Unknown 3-16 00:00: 00 Dose 2022-0 No Unknown 3-16 00:00: 00 Dose 2022-0 No Unknown 3-16 00:00: 00 Dose 2022-0 No Unknown 3-16 00:00: 00 Dose 2022-0 No Unknown 3-16 00:00: 00 Dose 2022-0 No Unknown 3-16 00:00: 00 Dose 2022-0 No Unknown 3-16 00:00: 00 Dose 2022-0 No Unknown 3-16 00:00: 00 Dose 2022-0 No Unknown 3-16 00:00: 00 Dose 2022-0 No Unknown 3-16 00:00: 00 Dose 2022-0 No Unknown 3-16 00:00: 00 Dose 2022-0 No Unknown 3-16 00:00: 00 Dose 2022-0 No Unknown 3-16 00:00: 00 Dose 2022-0 No Unknown 3-16 00:00: 00 Dose 2022-0 No Unknown 3-16 00:00: 00 Dose 2022-0 No Unknown 3-16 00:00: 00 Dose 2022-0 No Unknown 3-16 00:00: 00 Dose 2022-0 No Unknown 3-16 00:00: 00 Dose 2022-0 No Unknown 3-16 00:00: 00 Dose 2022-0 No Unknown 3-16 00:00: 00 Dose 2022-0 No Unknown 3-16 00:00: 00 Dose 2022-0 No Unknown 3-16 00:00: 00 Dose 2022-0 No Unknown 3-16 00:00: 00 Dose 2022-0 No Unknown 3-16 00:00: 00 Dose 2022-0 No Unknown 3-16 00:00: 00 Dose 2022-0 No Unknown 3-16 00:00: 00 Dose 2022-0 No Unknown 3-16 00:00: 00 Dose 2022-0 No Unknown 3-16 00:00: 00 Farxiga 10 2022-0 No 1mg mg tablet 3-16 00:00: 00 carvedilol 2022-0 No 1mg 12.5 mg 3-16 tablet 00:00: 00 hydralazine 2022-0 No 1mg 50 mg 3-16 tablet 00:00: 00 furosemide 2022-0 No 1mg 20 mg 3-16 tablet 00:00: 00 Dose 2022-0 No Unknown 3-16 00:00: 00 Dose 2022-0 No Unknown 3-16 00:00: 00 Dose 2022-0 No Unknown 3-16 00:00: 00 Dose 2022-0 No Unknown 3-16 00:00: 00 Dose 2022-0 No Unknown 3-16 00:00: 00 Dose 2022-0 No Unknown 3-16 00:00: 00 Dose 2022-0 No Unknown 3-16 00:00: 00 Dose 2022-0 No Unknown 3-16 00:00: 00 Dose 2022-0 No Unknown 3-16 00:00: 00 Dose 2022-0 No Unknown 3-16 00:00: 00 Dose 2022-0 No Unknown 3-16 00:00: 00 Dose 2022-0 No Unknown 3-16 00:00: 00 Dose 2022-0 No Unknown 3-16 00:00: 00 Dose 2022-0 No Unknown 3-16 00:00: 00 Dose 2022-0 No Unknown 3-16 00:00: 00 Dose 2022-0 No Unknown 3-16 00:00: 00 Dose 2022-0 No Unknown 3-16 00:00: 00 Dose 2022-0 No Unknown 3-16 00:00: 00 Dose 2022-0 No Unknown 3-16 00:00: 00 Dose 2022-0 No Unknown 3-16 00:00: 00 Dose 2022-0 No Unknown 3-16 00:00: 00 Dose 2022-0 No Unknown 3-16 00:00: 00 Dose 2022-0 No Unknown 3-16 00:00: 00 Dose 2022-0 No Unknown 3-16 00:00: 00 Dose 2022-0 No Unknown 3-16 00:00: 00 Dose 2022-0 No Unknown 3-16 00:00: 00 Dose 2022-0 No Unknown 3-16 00:00: 00 Dose 2022-0 No Unknown 3-16 00:00: 00 Dose 2022-0 No Unknown 3-16 00:00: 00 Dose 2022-0 No Unknown 3-16 00:00: 00 Dose 2022-0 No Unknown 3-16 00:00: 00 Dose 2022-0 No Unknown 3-16 00:00: 00 Dose 2022-0 No Unknown 3-16 00:00: 00 Dose 2022-0 No Unknown 3-16 00:00: 00 Dose 2022-0 No Unknown 3-15 00:00: 00 Dose 2022-0 No Unknown 3-15 00:00: 00 Dose 2022-0 No Unknown 3-15 00:00: 00 Dose 2022-0 No Unknown 3-15 00:00: 00 Dose 2022-0 No Unknown 3-15 00:00: 00 Dose 2022-0 No Unknown 3-15 00:00: 00 Dose 2022-0 No Unknown 3-15 00:00: 00 Dose 2022-0 No Unknown 3-15 00:00: 00 Dose 2022-0 No Unknown 3-15 00:00: 00 Dose 2022-0 No Unknown 3-15 00:00: 00 Dose 2022-0 No Unknown 3-15 00:00: 00 Dose 2022-0 No Unknown 3-15 00:00: 00 Dose 2022-0 No Unknown 3-15 00:00: 00 Dose 2022-0 No Unknown 3-15 00:00: 00 Dose 2022-0 No Unknown 3-15 00:00: 00 Dose 2022-0 No Unknown 3-15 00:00: 00 Dose 2022-0 No Unknown 3-15 00:00: 00 Dose 2022-0 No Unknown 3-15 00:00: 00 Dose 2022-0 No Unknown 3-15 00:00: 00 Dose 2022-0 No Unknown 3-15 00:00: 00 Dose 2022-0 No Unknown 3-15 00:00: 00 Dose 2022-0 No Unknown 3-15 00:00: 00 Dose 2022-0 No Unknown 3-15 00:00: 00 Dose 2022-0 No Unknown 3-15 00:00: 00 Dose 2022-0 No Unknown 3-15 00:00: 00 oxybutynin 2022-0 No 1mg chloride ER 2-24 10 mg 00:00: tablet,exte 00 nded release 24 hr oxybutynin 2-0 No 1mg chloride ER 2-24 10 mg 00:00: tablet,exte 00 nded release 24 hr oxybutynin 2022-0 No 1mg chloride ER 2-24 10 mg 00:00: tablet,exte 00 nded release 24 hr oxybutynin 2022-0 No 1mg chloride ER 2-24 10 mg 00:00: tablet,exte 00 nded release 24 hr oxybutynin 2022-0 No 1mg chloride ER 2-24 10 mg 00:00: tablet,exte 00 nded release 24 hr lisinopril 2022-0 No 1mg 40 mg 2-23 tablet 00:00: 00 lisinopril 2022-0 No 1mg 40 mg 2-23 tablet 00:00: 00 lisinopril 2022-0 No 1mg 40 mg 2-23 tablet 00:00: 00 lisinopril 2022-0 No 1mg 40 mg 2-23 tablet 00:00: 00 lisinopril 2022-0 No 1mg 40 mg 2-23 tablet 00:00: 00 Dose 2022-0 No Unknown 2-16 00:00: 00 Dose 2022-0 No Unknown 2-16 00:00: 00 Dose 2022-0 No Unknown 2-16 00:00: 00 Dose 2022-0 No Unknown 2-16 00:00: 00 Dose 2022-0 No Unknown 2-16 00:00: 00 Dose 2022-0 No Unknown 2-16 00:00: 00 Dose 2022-0 No Unknown 2-16 00:00: 00 Dose 2022-0 No Unknown 2-16 00:00: 00 Dose 2022-0 No Unknown 2-16 00:00: 00 Dose 2022-0 No Unknown 2-16 00:00: 00 Dose 2022-0 No Unknown 2-16 00:00: 00 Dose 2022-0 No Unknown 2-16 00:00: 00 Dose 2022-0 No Unknown 2-16 00:00: 00 Dose 2022-0 No Unknown 2-16 00:00: 00 Dose 2022-0 No Unknown 2-16 00:00: 00 Dose 2022-0 No Unknown 2-16 00:00: 00 Dose 2022-0 No Unknown 2-16 00:00: 00 Dose 2022-0 No Unknown 2-16 00:00: 00 Dose 2022-0 No Unknown 2-16 00:00: 00 Dose 2022-0 No Unknown 2-16 00:00: 00 prednisone 2022-0 No 1mg 10 mg 1-07 tablet 00:00: 00 prednisone 2022-0 No 1mg 10 mg 1-07 tablet 00:00: 00 prednisone 2022-0 No 1mg 10 mg 1-07 tablet 00:00: 00 prednisone 2022-0 No 1mg 10 mg 1-07 tablet 00:00: 00 prednisone 2022-0 No 1mg 10 mg 1-07 tablet 00:00: 00 Dose 2021-1 No Unknown 2-29 00:00: 00 benzonatate 2021-1 No 1mg 200 mg 2-29 capsule 00:00: 00 Dose 2021-1 No Unknown 2-29 00:00: 00 benzonatate 2020-1 No 1mg 200 mg 2-29 capsule 00:00: 00 Dose 2020-1 No Unknown 2-29 00:00: 00 benzonatate 2020-1 No 1mg 200 mg 2-29 capsule 00:00: 00 Dose 2020-1 No Unknown 2-29 00:00: 00 benzonatate 2020-1 No 1mg 200 mg 2-29 capsule 00:00: 00 Dose 2020-1 No Unknown 2-29 00:00: 00 benzonatate 2020-1 No 1mg 200 mg 2-29 capsule 00:00: 00 prednisone 2020-1 No 1mg 20 mg 2-15 tablet 00:00: 00 allopurinol 2020-1 No 1mg 100 mg 2-15 tablet 00:00: 00 lisinopril 2020-1 No 1mg 40 mg 2-15 tablet 00:00: 00 amlodipine 2020-1 No 1mg 10 mg 2-15 tablet 00:00: 00 trazodone 2020-1 No 1mg 50 mg 2-15 tablet 00:00: 00 prednisone 2020-1 No 1mg 20 mg 2-15 tablet 00:00: 00 allopurinol 2020-1 No 1mg 100 mg 2-15 tablet 00:00: 00 lisinopril 2020-1 No 1mg 40 mg 2-15 tablet 00:00: 00 amlodipine 2020-1 No 1mg 10 mg 2-15 tablet 00:00: 00 trazodone 2020-1 No 1mg 50 mg 2-15 tablet 00:00: 00 prednisone 2020-1 No 1mg 20 mg 2-15 tablet 00:00: 00 allopurinol 2020-1 No 1mg 100 mg 2-15 tablet 00:00: 00 lisinopril 2020-1 No 1mg 40 mg 2-15 tablet 00:00: 00 amlodipine 1-1 No 1mg 10 mg 2-15 tablet 00:00: 00 trazodone 2020-1 No 1mg 50 mg 2-15 tablet 00:00: 00 prednisone 2020-1 No 1mg 20 mg 2-15 tablet 00:00: 00 allopurinol 2020-1 No 1mg 100 mg 2-15 tablet 00:00: 00 lisinopril 2021-1 No 1mg 40 mg 2-15 tablet 00:00: 00 amlodipine 2021-1 No 1mg 10 mg 2-15 tablet 00:00: 00 trazodone 2021-1 No 1mg 50 mg 2-15 tablet 00:00: 00 prednisone 2021-1 No 1mg 20 mg 2-15 tablet 00:00: 00 allopurinol 1-1 No 1mg 100 mg 2-15 tablet 00:00: 00 lisinopril 1-1 No 1mg 40 mg 2-15 tablet 00:00: 00 amlodipine 2021-1 No 1mg 10 mg 2-15 tablet 00:00: 00 trazodone 1-1 No 1mg 50 mg 2-15 tablet 00:00: 00 Dose 2021-1 No Unknown 2-08 00:00: 00 Dose 1-1 No Unknown 2-08 00:00: 00 Dose 1-1 No Unknown 2-08 00:00: 00 Dose 1-1 No Unknown 2-08 00:00: 00 Dose 1-1 No Unknown 2-08 00:00: 00 lisinopril 1-0 No 1mg 20 9-29 mg-hydrochl 00:00: orothiazide 00 12.5 mg tablet gabapentin 1-0 No 1mg 800 mg 9-29 tablet 00:00: 00 hydralazine 2021-0 No 1mg 100 mg 9-29 tablet 00:00: 00 lisinopril 2021-0 No 1mg 20 9-29 mg-hydrochl 00:00: orothiazide 00 12.5 mg tablet gabapentin 2021-0 No 1mg 800 mg 9-29 tablet 00:00: 00 lisinopril 2021-0 No 1mg 20 9-29 mg-hydrochl 00:00: orothiazide 00 12.5 mg tablet gabapentin 2021-0 No 1mg 800 mg 9-29 tablet 00:00: 00 hydralazine 2021-0 No 1mg 100 mg 9-29 tablet 00:00: 00 hydralazine 2021-0 No 1mg 100 mg 9-29 tablet 00:00: 00 lisinopril 2021-0 No 1mg 20 9-29 mg-hydrochl 00:00: orothiazide 00 12.5 mg tablet gabapentin 2021-0 No 1mg 800 mg 9-29 tablet 00:00: 00 hydralazine 2021-0 No 1mg 100 mg 9-29 tablet 00:00: 00 lisinopril 2021-0 No 1mg 20 9-29 mg-hydrochl 00:00: orothiazide 00 12.5 mg tablet gabapentin 2021-0 No 1mg 800 mg 9-29 tablet 00:00: 00 hydralazine 2021-0 No 1mg 100 mg 9-29 tablet 00:00: 00 diclofenac 2021-0 No 1% 3 % topical 9-25 gel 00:00: 00 lisinopril 2021-0 No 1mg 20 9-25 mg-hydrochl 00:00: orothiazide 00 12.5 mg tablet Dose 2021-0 No Unknown 01-27 00:00: 00 diclofenac 2021-0 No 1% 3 % topical 9-25 gel 00:00: 00 lisinopril 2021-0 No 1mg 20 9-25 mg-hydrochl 00:00: orothiazide 00 12.5 mg tablet Dose 2021-0 No Unknown 01-27 00:00: 00 diclofenac 2021-0 No 1% 3 % topical 9-25 gel 00:00: 00 lisinopril 2021-0 No 1mg 20 9-25 mg-hydrochl 00:00: orothiazide 00 12.5 mg tablet Dose 2021-0 No Unknown 25 00:00: 00 diclofenac 2021-0 No 1% 3 % topical 9-25 gel 00:00: 00 lisinopril 2021-0 No 1mg 20 9-25 mg-hydrochl 00:00: orothiazide 00 12.5 mg tablet Dose 2021-0 No Unknown 01-27 00:00: 00 diclofenac 2021-0 No 1% 3 % topical 9-25 gel 00:00: 00 lisinopril 2021-0 No 1mg 20 9-25 mg-hydrochl 00:00: orothiazide 00 12.5 mg tablet Dose 2021-0 No Unknown 25 00:00: 00 prednisone 2021-0 No 1mg 20 mg 8-13 tablet 00:00: 00 cyclobenzap 2021-0 No 1mg rine 10 mg 8-13 tablet 00:00: 00 duloxetine 2021-0 No 1mg 20 mg 8-13 capsule,del 00:00: ayed 00 release prednisone 2021-0 No 1mg 20 mg 8-13 tablet 00:00: 00 cyclobenzap 2021-0 No 1mg rine 10 mg 8-13 tablet 00:00: 00 duloxetine 2021-0 No 1mg 20 mg 8-13 capsule,del 00:00: ayed 00 release prednisone 2021-0 No 1mg 20 mg 8-13 tablet 00:00: 00 cyclobenzap 2021-0 No 1mg rine 10 mg 8-13 tablet 00:00: 00 duloxetine 2021-0 No 1mg 20 mg 8-13 capsule,del 00:00: ayed 00 release prednisone 2021-0 No 1mg 20 mg 8-13 tablet 00:00: 00 cyclobenzap 2021-0 No 1mg rine 10 mg 8-13 tablet 00:00: 00 duloxetine 2021-0 No 1mg 20 mg 8-13 capsule,del 00:00: ayed 00 release prednisone 2021-0 No 1mg 20 mg 8-13 tablet 00:00: 00 cyclobenzap 2021-0 No 1mg rine 10 mg 8-13 tablet 00:00: 00 duloxetine 2021-0 No 1mg 20 mg 8-13 capsule,del 00:00: ayed 00 release duloxetine 2021-0 No 1mg 30 mg 7-19 capsule,del 00:00: ayed 00 release duloxetine 2021-0 No 1mg 30 mg 7-19 capsule,del 00:00: ayed 00 release duloxetine 2021-0 No 1mg 30 mg 7-19 capsule,del 00:00: ayed 00 release duloxetine 2021-0 No 1mg 30 mg 7-19 capsule,del 00:00: ayed 00 release duloxetine 2021-0 No 1mg 30 mg 7-19 capsule,del 00:00: ayed 00 release Advair HFA 2021-0 No 1mcg/ac 115 mcg-21 7-07 tuation mcg/actuati 00:00: on aerosol 00 inhaler furosemide 2021-0 No 1mg 40 mg 7-07 tablet 00:00: 00 duloxetine 2021-0 No 1mg 60 mg 7-07 capsule,del 00:00: ayed 00 release Advair HFA 2021-0 No 1mcg/ac 115 mcg-21 7-07 tuation mcg/actuati 00:00: on aerosol 00 inhaler furosemide 2021-0 No 1mg 40 mg 7-07 tablet 00:00: 00 duloxetine 2021-0 No 1mg 60 mg 7-07 capsule,del 00:00: ayed 00 release Advair HFA 2021-0 No 1mcg/ac 115 mcg-21 7-07 tuation mcg/actuati 00:00: on aerosol 00 inhaler furosemide 2021-0 No 1mg 40 mg 7-07 tablet 00:00: 00 duloxetine 2021-0 No 1mg 60 mg 7-07 capsule,del 00:00: ayed 00 release Advair HFA 2021-0 No 1mcg/ac 115 mcg-21 7-07 tuation mcg/actuati 00:00: on aerosol 00 inhaler furosemide 1-0 No 1mg 40 mg 7-07 tablet 00:00: 00 duloxetine 2021-0 No 1mg 60 mg 7-07 capsule,del 00:00: ayed 00 release Advair HFA 2021-0 No 1mcg/ac 115 mcg-21 7-07 tuation mcg/actuati 00:00: on aerosol 00 inhaler furosemide 1-0 No 1mg 40 mg 7-07 tablet 00:00: 00 duloxetine 2021-0 No 1mg 60 mg 7-07 capsule,del 00:00: ayed 00 release hydralazine 2021-0 No 1mg 100 mg 6-23 tablet 00:00: 00 hydralazine 2021-0 No 1mg 100 mg 6-23 tablet 00:00: 00 hydralazine 2021-0 No 1mg 100 mg 6-23 tablet 00:00: 00 hydralazine 2021-0 No 1mg 100 mg 6-23 tablet 00:00: 00 hydralazine 2021-0 No 1mg 100 mg 6-23 tablet 00:00: 00 furosemide 2021-0 No 1mg 40 mg 6-09 tablet 00:00: 00 albuterol 2021-0 No 3mg/3 sulfate 6-09 mL 1.25 mg/3 00:00: mL solution 00 for nebulizatio n furosemide 2021-0 No 1mg 40 mg 6-09 tablet 00:00: 00 albuterol 2021-0 No 3mg/3 sulfate 6-09 mL 1.25 mg/3 00:00: mL solution 00 for nebulizatio n furosemide 1-0 No 1mg 40 mg 6-09 tablet 00:00: 00 albuterol 1-0 No 3mg/3 sulfate 6-09 mL 1.25 mg/3 00:00: mL solution 00 for nebulizatio n furosemide 1-0 No 1mg 40 mg 6-09 tablet 00:00: 00 albuterol 2021-0 No 3mg/3 sulfate 6-09 mL 1.25 mg/3 00:00: mL solution 00 for nebulizatio n furosemide 1-0 No 1mg 40 mg 6-09 tablet 00:00: 00 albuterol 2021-0 No 3mg/3 sulfate 6-09 mL 1.25 mg/3 00:00: mL solution 00 for nebulizatio n metoprolol 1-0 No 1mg succinate 5-02 ER 100 mg 00:00: tablet,exte 00 nded release 24 hr metoprolol 1-0 No 1mg succinate 5-02 ER 100 mg 00:00: tablet,exte 00 nded release 24 hr metoprolol 1-0 No 1mg succinate 5-02 ER 100 mg 00:00: tablet,exte 00 nded release 24 hr metoprolol 1-0 No 1mg succinate 5-02 ER 100 mg 00:00: tablet,exte 00 nded release 24 hr metoprolol 1-0 No 1mg succinate 5-02 ER 100 mg 00:00: tablet,exte 00 nded release 24 hr lisinopril 1-0 No 2mg 20 4-21 mg-hydrochl 00:00: orothiazide 00 12.5 mg tablet amlodipine 1-0 No 1mg 10 mg 4-21 tablet 00:00: 00 gabapentin 2021-0 No 1mg 800 mg 4-21 tablet 00:00: 00 indomethaci 2021-0 No 1mg n ER 75 mg 4-21 capsule,ext 00:00: ended 00 release lisinopril 2021-0 No 2mg 20 4-21 mg-hydrochl 00:00: orothiazide 00 12.5 mg tablet amlodipine 1-0 No 1mg 10 mg 4-21 tablet 00:00: 00 gabapentin 2021-0 No 1mg 800 mg 4-21 tablet 00:00: 00 indomethaci 2021-0 No 1mg n ER 75 mg 4-21 capsule,ext 00:00: ended 00 release lisinopril 2021-0 No 2mg 20 4-21 mg-hydrochl 00:00: orothiazide 00 12.5 mg tablet amlodipine 2021-0 No 1mg 10 mg 4-21 tablet 00:00: 00 gabapentin 2021-0 No 1mg 800 mg 4-21 tablet 00:00: 00 indomethaci 2021-0 No 1mg n ER 75 mg 4-21 capsule,ext 00:00: ended 00 release lisinopril 2021-0 No 2mg 20 4-21 mg-hydrochl 00:00: orothiazide 00 12.5 mg tablet amlodipine 2021-0 No 1mg 10 mg 4-21 tablet 00:00: 00 gabapentin 2021-0 No 1mg 800 mg 4-21 tablet 00:00: 00 indomethaci 2021-0 No 1mg n ER 75 mg 4-21 capsule,ext 00:00: ended 00 release lisinopril 2021-0 No 2mg 20 4-21 mg-hydrochl 00:00: orothiazide 00 12.5 mg tablet amlodipine 2021-0 No 1mg 10 mg 4-21 tablet 00:00: 00 gabapentin 2021-0 No 1mg 800 mg 4-21 tablet 00:00: 00 indomethaci 2021-0 No 1mg n ER 75 mg 4-21 capsule,ext 00:00: ended 00 release lisinopril 2021-0 No 2mg 20 3-31 mg-hydrochl 00:00: orothiazide 00 12.5 mg tablet amlodipine 2021-0 No 1mg 10 mg 3-31 tablet 00:00: 00 gabapentin 2021-0 No 1mg 800 mg 3-31 tablet 00:00: 00 indomethaci 2021-0 No 1mg n ER 75 mg 3-31 capsule,ext 00:00: ended 00 release lisinopril 2021-0 No 2mg 20 3-31 mg-hydrochl 00:00: orothiazide 00 12.5 mg tablet amlodipine 2021-0 No 1mg 10 mg 3-31 tablet 00:00: 00 gabapentin 2021-0 No 1mg 800 mg 3-31 tablet 00:00: 00 indomethaci 2021-0 No 1mg n ER 75 mg 3-31 capsule,ext 00:00: ended 00 release lisinopril 2021-0 No 2mg 20 3-31 mg-hydrochl 00:00: orothiazide 00 12.5 mg tablet amlodipine 2021-0 No 1mg 10 mg 3-31 tablet 00:00: 00 gabapentin 2021-0 No 1mg 800 mg 3-31 tablet 00:00: 00 indomethaci 2021-0 No 1mg n ER 75 mg 3-31 capsule,ext 00:00: ended 00 release lisinopril 2021-0 No 2mg 20 3-31 mg-hydrochl 00:00: orothiazide 00 12.5 mg tablet amlodipine 2021-0 No 1mg 10 mg 3-31 tablet 00:00: 00 gabapentin 2021-0 No 1mg 800 mg 3-31 tablet 00:00: 00 indomethaci 2021-0 No 1mg n ER 75 mg 3-31 capsule,ext 00:00: ended 00 release lisinopril 2021-0 No 2mg 20 3-31 mg-hydrochl 00:00: orothiazide 00 12.5 mg tablet amlodipine 2021-0 No 1mg 10 mg 3-31 tablet 00:00: 00 gabapentin 2021-0 No 1mg 800 mg 3-31 tablet 00:00: 00 indomethaci 2021-0 No 1mg n ER 75 mg 3-31 capsule,ext 00:00: ended 00 release lidocaine 5 2021-0 No 1% % topical 3-10 patch 00:00: 00 lisinopril 2021-0 No 2mg 20 3-10 mg-hydrochl 00:00: orothiazide 00 12.5 mg tablet gabapentin 2021-0 No 1mg 800 mg 3-10 tablet 00:00: 00 indomethaci 2021-0 No 1mg n ER 75 mg 3-10 capsule,ext 00:00: ended 00 release lidocaine 5 2021-0 No 1% % topical 3-10 patch 00:00: 00 lisinopril 2021-0 No 2mg 20 3-10 mg-hydrochl 00:00: orothiazide 00 12.5 mg tablet gabapentin 2021-0 No 1mg 800 mg 3-10 tablet 00:00: 00 indomethaci 2021-0 No 1mg n ER 75 mg 3-10 capsule,ext 00:00: ended 00 release lidocaine 5 2021-0 No 1% % topical 3-10 patch 00:00: 00 lisinopril 2021-0 No 2mg 20 3-10 mg-hydrochl 00:00: orothiazide 00 12.5 mg tablet gabapentin 2021-0 No 1mg 800 mg 3-10 tablet 00:00: 00 indomethaci 2021-0 No 1mg n ER 75 mg 3-10 capsule,ext 00:00: ended 00 release lidocaine 5 2021-0 No 1% % topical 3-10 patch 00:00: 00 lisinopril 2021-0 No 2mg 20 3-10 mg-hydrochl 00:00: orothiazide 00 12.5 mg tablet gabapentin 2021-0 No 1mg 800 mg 3-10 tablet 00:00: 00 indomethaci 2021-0 No 1mg n ER 75 mg 3-10 capsule,ext 00:00: ended 00 release lidocaine 5 1-0 No 1% % topical 3-10 patch 00:00: 00 lisinopril 2021-0 No 2mg 20 3-10 mg-hydrochl 00:00: orothiazide 00 12.5 mg tablet gabapentin 2021-0 No 1mg 800 mg 3-10 tablet 00:00: 00 indomethaci 2021-0 No 1mg n ER 75 mg 3-10 capsule,ext 00:00: ended 00 release lisinopril 2021-0 No 1mg 20 3-02 mg-hydrochl 00:00: orothiazide 00 12.5 mg tablet lisinopril 2021-0 No 1mg 20 3-02 mg-hydrochl 00:00: orothiazide 00 12.5 mg tablet lisinopril 2021-0 No 1mg 20 3-02 mg-hydrochl 00:00: orothiazide 00 12.5 mg tablet lisinopril 2021-0 No 1mg 20 3-02 mg-hydrochl 00:00: orothiazide 00 12.5 mg tablet lisinopril 2021-0 No 1mg 20 3-02 mg-hydrochl 00:00: orothiazide 00 12.5 mg tablet lisinopril 2021-0 No 1mg 40 mg 2-24 tablet 00:00: 00 hydrochloro 2021-0 No 1mg thiazide 2-24 12.5 mg 00:00: tablet 00 gabapentin 2021-0 No 1mg 600 mg 2-24 tablet 00:00: 00 indomethaci 2021-0 No 1mg n ER 75 mg 2-24 capsule,ext 00:00: ended 00 release lisinopril 2021-0 No 1mg 40 mg 2-24 tablet 00:00: 00 hydrochloro 2021-0 No 1mg thiazide 2-24 12.5 mg 00:00: tablet 00 gabapentin 2021-0 No 1mg 600 mg 2-24 tablet 00:00: 00 indomethaci 2021-0 No 1mg n ER 75 mg 2-24 capsule,ext 00:00: ended 00 release lisinopril 2021-0 No 1mg 40 mg 2-24 tablet 00:00: 00 hydrochloro 2021-0 No 1mg thiazide 2-24 12.5 mg 00:00: tablet 00 gabapentin 2021-0 No 1mg 600 mg 2-24 tablet 00:00: 00 indomethaci 2021-0 No 1mg n ER 75 mg 2-24 capsule,ext 00:00: ended 00 release lisinopril 2021-0 No 1mg 40 mg 2-24 tablet 00:00: 00 hydrochloro 2021-0 No 1mg thiazide 2-24 12.5 mg 00:00: tablet 00 gabapentin 2021-0 No 1mg 600 mg 2-24 tablet 00:00: 00 indomethaci 2021-0 No 1mg n ER 75 mg 2-24 capsule,ext 00:00: ended 00 release lisinopril 2021-0 No 1mg 40 mg 2-24 tablet 00:00: 00 hydrochloro 2021-0 No 1mg thiazide 2-24 12.5 mg 00:00: tablet 00 gabapentin 2021-0 No 1mg 600 mg 2-24 tablet 00:00: 00 indomethaci 2021-0 No 1mg n ER 75 mg 2-24 capsule,ext 00:00: ended 00 release lisinopril 2019-1 No 1mg 20 2-13 mg-hydrochl 00:00: orothiazide 00 12.5 mg tablet indomethaci 2019-1 No 1mg n 50 mg 2-13 capsule 00:00: 00 lisinopril 2019-1 No 1mg 20 2-13 mg-hydrochl 00:00: orothiazide 00 12.5 mg tablet indomethaci 2019-1 No 1mg n 50 mg 2-13 capsule 00:00: 00 lisinopril 2018- No 1mg 20 2-13 mg-hydrochl 00:00: orothiazide 00 12.5 mg tablet indomethaci 2018- No 1mg n 50 mg 2-13 capsule 00:00: 00 lisinopril 2018- No 1mg 20 2-13 mg-hydrochl 00:00: orothiazide 00 12.5 mg tablet indomethaci 2018- No 1mg n 50 mg 2-13 capsule 00:00: 00 lisinopril 2018- No 1mg 20 2-13 mg-hydrochl 00:00: orothiazide 00 12.5 mg tablet indomethaci 2018- No 1mg n 50 mg 2-13 capsule 00:00: 00 indomethaci 2019- No 1mg n 50 mg 1-19 capsule 00:00: 00 indomethaci 2018- No 1mg n 50 mg 1-19 capsule 00:00: 00 indomethaci 2019- No 1mg n 50 mg 1-19 capsule 00:00: 00 indomethaci 2018- No 1mg n 50 mg 1-19 capsule 00:00: 00 indomethaci 2018- No 1mg n 50 mg 1-19 capsule 00:00: 00 lisinopril 2018- No 1mg 20 0-23 mg-hydrochl 00:00: orothiazide 00 12.5 mg tablet prednisone 2018- No 1mg 20 mg 0-23 tablet 00:00: 00 cyclobenzap 2018- No 12mg rine 5 mg 0-23 tablet 00:00: 00 indomethaci 2018- No 1mg n 50 mg 0-23 capsule 00:00: 00 lisinopril 2018- No 1mg 20 0-23 mg-hydrochl 00:00: orothiazide 00 12.5 mg tablet prednisone 2018- No 1mg 20 mg 0-23 tablet 00:00: 00 cyclobenzap 2019- No 12mg rine 5 mg 0-23 tablet 00:00: 00 indomethaci 2019-1 No 1mg n 50 mg 0-23 capsule 00:00: 00 lisinopril 2018- No 1mg 20 0-23 mg-hydrochl 00:00: orothiazide 00 12.5 mg tablet prednisone 2018- No 1mg 20 mg 0-23 tablet 00:00: 00 cyclobenzap 2018- No 12mg rine 5 mg 0-23 tablet 00:00: 00 indomethaci 2019-1 No 1mg n 50 mg 0-23 capsule 00:00: 00 lisinopril 2019-1 No 1mg 20 0-23 mg-hydrochl 00:00: orothiazide 00 12.5 mg tablet prednisone 2019-1 No 1mg 20 mg 0-23 tablet 00:00: 00 cyclobenzap 2019-1 No 12mg rine 5 mg 0-23 tablet 00:00: 00 indomethaci 2019-1 No 1mg n 50 mg 0-23 capsule 00:00: 00 lisinopril 2019-1 No 1mg 20 0-23 mg-hydrochl 00:00: orothiazide 00 12.5 mg tablet prednisone 2019-1 No 1mg 20 mg 0-23 tablet 00:00: 00 cyclobenzap 2019-1 No 12mg rine 5 mg 0-23 tablet 00:00: 00 indomethaci 2019-1 No 1mg n 50 mg 0-23 capsule 00:00: 00 gabapentin 2019-0 No 1mg 600 mg 6-17 tablet 00:00: 00 gabapentin 2019-0 No 1mg 600 mg 6-17 tablet 00:00: 00 gabapentin 2019-0 No 1mg 600 mg 6-17 tablet 00:00: 00 gabapentin 2019-0 No 1mg 600 mg 6-17 tablet 00:00: 00 gabapentin 2019-0 No 1mg 600 mg 6-17 tablet 00:00: 00 gabapentin 2019-0 No 1mg 600 mg 6-17 tablet 00:00: 00 gabapentin 2019-0 No 1mg 600 mg 6-17 tablet 00:00: 00 gabapentin 2019-0 No 1mg 600 mg 6-17 tablet 00:00: 00 gabapentin 2019-0 No 1mg 600 mg 6-17 tablet 00:00: 00 gabapentin 2019-0 No 1mg 600 mg 6-17 tablet 00:00: 00 meloxicam 2019-0 No 1mg 15 mg 4-01 tablet 00:00: 00 meloxicam 2019-0 No 1mg 15 mg 4-01 tablet 00:00: 00 meloxicam 2019-0 No 1mg 15 mg 4-01 tablet 00:00: 00 meloxicam 2019-0 No 1mg 15 mg 4-01 tablet 00:00: 00 meloxicam 2019-0 No 1mg 15 mg 4-01 tablet 00:00: 00 gabapentin 2019-0 No 1mg 600 mg 3-18 tablet 00:00: 00 tramadol 50 2019-0 No 1mg mg tablet 3-18 00:00: 00 gabapentin 2019-0 No 1mg 600 mg 3-18 tablet 00:00: 00 tramadol 50 2019-0 No 1mg mg tablet 3-18 00:00: 00 gabapentin 2019-0 No 1mg 600 mg 3-18 tablet 00:00: 00 tramadol 50 2019-0 No 1mg mg tablet 3-18 00:00: 00 tramadol 50 2019-0 No 1mg mg tablet 3-18 00:00: 00 gabapentin 2019-0 No 1mg 600 mg 3-18 tablet 00:00: 00 gabapentin 2019-0 No 1mg 600 mg 3-18 tablet 00:00: 00 tramadol 50 2019-0 No 1mg mg tablet 3-18 00:00: 00 Zithromax 2019-0 No mg Z-Alcides 250 2-07 mg tablet 00:00: 00 Zithromax 2019-0 No mg Z-Alcides 250 2-07 mg tablet 00:00: 00 Zithromax 2019-0 No mg Z-Alcides 250 2-07 mg tablet 00:00: 00 Zithromax 2019-0 No mg Z-Alcides 250 2-07 mg tablet 00:00: 00 Zithromax 2019-0 No mg Z-Alcides 250 2-07 mg tablet 00:00: 00 lisinopril 2019-0 No 1mg 20 1-10 mg-hydrochl 00:00: orothiazide 00 12.5 mg tablet meloxicam 2019-0 No 1mg 15 mg 1-10 tablet 00:00: 00 gabapentin 2019-0 No 1mg 600 mg 1-10 tablet 00:00: 00 tramadol 50 2019-0 No 1mg mg tablet 1-10 00:00: 00 lisinopril 2019-0 No 1mg 20 1-10 mg-hydrochl 00:00: orothiazide 00 12.5 mg tablet meloxicam 2019-0 No 1mg 15 mg 1-10 tablet 00:00: 00 lisinopril 2019-0 No 1mg 20 1-10 mg-hydrochl 00:00: orothiazide 00 12.5 mg tablet meloxicam 2019-0 No 1mg 15 mg 1-10 tablet 00:00: 00 gabapentin 2019-0 No 1mg 600 mg 1-10 tablet 00:00: 00 tramadol 50 2019-0 No 1mg mg tablet -10 00:00: 00 gabapentin 2019-0 No 1mg 600 mg 1-10 tablet 00:00: 00 tramadol 50 2019-0 No 1mg mg tablet 10 00:00: 00 lisinopril 2019-0 No 1mg 20 1-10 mg-hydrochl 00:00: orothiazide 00 12.5 mg tablet meloxicam 2019-0 No 1mg 15 mg 1-10 tablet 00:00: 00 gabapentin 2019-0 No 1mg 600 mg 1-10 tablet 00:00: 00 tramadol 50 2019-0 No 1mg mg tablet 10 00:00: 00 lisinopril 2019-0 No 1mg 20 1-10 mg-hydrochl 00:00: orothiazide 00 12.5 mg tablet meloxicam 2019-0 No 1mg 15 mg 1-10 tablet 00:00: 00 gabapentin 2019-0 No 1mg 600 mg 1-10 tablet 00:00: 00 tramadol 50 2019-0 No 1mg mg tablet 10 00:00: 00 Vital Signs Vital Name Observation Time Observation Value Comments Source BP Systolic 2022-02-21 09:43:00 137 mm[Hg] BP Diastolic 2022-02-21 09:43:00 61 mm[Hg] Weight Measured 2022-02-21 09:43:00 290.60 pounds Height Measured 2022-02-21 09:43:00 60.00 inches Body Temperature 2022-02-21 09:43:00 98.00 degrees Heart Rate 2022-02-21 09:43:00 74.00 /min Respiratory Rate 2022-02-21 09:43:00 24.00 /min BP Systolic 2021-12-12 17:06:00 150 mm[Hg] BP Diastolic 2021-12-12 17:06:00 66 mm[Hg] Weight Measured 2021-12-12 17:06:00 292.20 pounds Height Measured 2021-12-12 17:06:00 60.00 inches Body Temperature 2021-12-12 17:06:00 98.00 degrees Heart Rate 2021-12-12 17:06:00 86.00 /min Respiratory Rate 2021-12-12 17:06:00 BP Systolic 2021-12-01 10:26:00 138 mm[Hg] BP Diastolic 2021-12-01 10:26:00 81 mm[Hg] Weight Measured 2021-12-01 10:26:00 285.00 pounds Height Measured 2021-12-01 10:26:00 60.00 inches Body Temperature 2021-12-01 10:26:00 98.20 degrees Heart Rate 2021-12-01 10:26:00 77.00 /min Respiratory Rate 2021-12-01 10:26:00 17.00 /min BP Systolic 2021-07-18 13:52:00 160 mm[Hg] BP Diastolic 2021-07-18 13:52:00 82 mm[Hg] Weight Measured 2021-07-18 13:52:00 281.40 pounds Height Measured 2021-07-18 13:52:00 60.00 inches Body Temperature 2021-07-18 13:52:00 Heart Rate 2021-07-18 13:52:00 67.00 /min Respiratory Rate 2021-07-18 13:52:00 BP Systolic 2021-06-27 11:00:00 173 mm[Hg] BP Diastolic 2021-06-27 11:00:00 81 mm[Hg] Weight Measured 2021-06-27 11:00:00 283.20 pounds Height Measured 2021-06-27 11:00:00 60.00 inches Body Temperature 2021-06-27 11:00:00 97.50 degrees Heart Rate 2021-06-27 11:00:00 71.00 /min Respiratory Rate 2021-06-27 11:00:00 BP Systolic 2021-06-20 13:20:00 167 mm[Hg] BP Diastolic 2021-06-20 13:20:00 90 mm[Hg] Weight Measured 2021-06-20 13:20:00 291.00 pounds Height Measured 2021-06-20 13:20:00 60.00 inches Body Temperature 2021-06-20 13:20:00 Heart Rate 2021-06-20 13:20:00 75.00 /min Respiratory Rate 2021-06-20 13:20:00 BP Systolic 2021-04-18 10:51:00 162 mm[Hg] BP Diastolic 2021-04-18 10:51:00 75 mm[Hg] Weight Measured 2021-04-18 10:51:00 286.60 pounds Height Measured 2021-04-18 10:51:00 60.00 inches Body Temperature 2021-04-18 10:51:00 97.50 degrees Heart Rate 2021-04-18 10:51:00 80.00 /min Respiratory Rate 2021-04-18 10:51:00 BP Systolic 2021-04-11 13:31:00 153 mm[Hg] BP Diastolic 2021-04-11 13:31:00 75 mm[Hg] Weight Measured 2021-04-11 13:31:00 295.80 pounds Height Measured 2021-04-11 13:31:00 60.00 inches Body Temperature 2021-04-11 13:31:00 98.10 degrees Heart Rate 2021-04-11 13:31:00 92.00 /min Respiratory Rate 2021-04-11 13:31:00 BP Systolic 2021-01-31 11:26:00 171 mm[Hg] BP Diastolic 2021-01-31 11:26:00 97 mm[Hg] Weight Measured 2021-01-31 11:26:00 292.40 pounds Height Measured 2021-01-31 11:26:00 60.00 inches Body Temperature 2021-01-31 11:26:00 98.40 degrees Heart Rate 2021-01-31 11:26:00 83.00 /min Respiratory Rate 2021-01-31 11:26:00 16.00 /min BP Systolic 2021-01-27 15:34:00 BP Diastolic 2021-01-27 15:34:00 Weight Measured 2021-01-27 15:34:00 290.00 pounds Height Measured 2021-01-27 15:34:00 60.00 inches Body Temperature 2021-01-27 15:34:00 Heart Rate 2021-01-27 15:34:00 Respiratory Rate 2021-01-27 15:34:00 BP Systolic 2020-12-13 10:27:00 146 mm[Hg] BP Diastolic 2020-12-13 10:27:00 67 mm[Hg] Weight Measured 2020-12-13 10:27:00 290.80 pounds Height Measured 2020-12-13 10:27:00 60.00 inches Body Temperature 2020-12-13 10:27:00 98.70 degrees Heart Rate 2020-12-13 10:27:00 66.00 /min Respiratory Rate 2020-12-13 10:27:00 BP Systolic 2020-11-08 10:15:00 132 mm[Hg] BP Diastolic 2020-11-08 10:15:00 54 mm[Hg] Weight Measured 2020-11-08 10:15:00 291.60 pounds Height Measured 2020-11-08 10:15:00 60.00 inches Body Temperature 2020-11-08 10:15:00 98.40 degrees Heart Rate 2020-11-08 10:15:00 72.00 /min Respiratory Rate 2020-11-08 10:15:00 16.00 /min Procedures Procedure Date / Time Performed Performing Clinician Sourc e Echo Tthrc R-t 2d W/wom-mode Compl 2021-07-25 00:00:00 Spec colr Dop Plan of Care Planned Activity Planned Date Details Comments Source Goal Plan of Care Note [code = 79622-0] Goal Plan of Care Note [code = 62599-6] Goal Plan of Care Note [code = 16523-8] Goal Plan of Care Note [code = 56555-2] Goal Plan of Care Note [code = 00284-7] Goal Plan of Care Note [code = 77118-3] Goal Plan of Care Note [code = 45818-8] Goal Plan of Care Note [code = 59447-6] Goal Plan of Care Note [code = 88461-4] Goal Plan of Care Note [code = 14917-8] Goal Plan of Care Note [code = 47875-6] Goal Plan of Care Note [code = 78488-1] Goal Plan of Care Note [code = 69714-7] Goal Plan of Care Note [code = 08980-0] Goal Plan of Care Note [code = 89356-3] Goal Plan of Care Note [code = 93367-2] Goal Plan of Care Note [code = 84135-8] Goal Plan of Care Note [code = 12166-1] Goal Plan of Care Note [code = 08515-7] Goal Plan of Care Note [code = 69923-0] Goal Plan of Care Note [code = 23379-5] Goal Plan of Care Note [code = 74361-2] Goal Plan of Care Note [code = 01238-4] Goal Plan of Care Note [code = 49042-2] Goal Plan of Care Note [code = 33807-2] Goal Plan of Care Note [code = 47118-6] Goal Plan of Care Note [code = 30414-1] Goal Plan of Care Note [code = 19708-3] Goal Plan of Care Note [code = 15118-9] Goal Plan of Care Note [code = 02066-9] Goal Plan of Care Note [code = 03161-3] Goal Plan of Care Note [code = 20509-4] Goal Plan of Care Note [code = 04353-1] Goal Plan of Care Note [code = 01556-8] Goal Plan of Care Note [code = 90186-9] Goal Plan of Care Note [code = 32383-7] Goal Plan of Care Note [code = 38307-6] Goal Plan of Care Note [code = 12542-1] Goal Plan of Care Note [code = 42759-9] Goal Plan of Care Note [code = 16552-5] Goal Plan of Care Note [code = 43708-1] Goal Plan of Care Note [code = 53532-8] Goal Plan of Care Note [code = 45061-9] Goal Plan of Care Note [code = 24825-7] Goal Plan of Care Note [code = 28122-6] Goal Plan of Care Note [code = 91195-3] Goal Plan of Care Note [code = 90866-6] Goal Plan of Care Note [code = 78116-8] Goal Plan of Care Note [code = 07149-3] Goal Plan of Care Note [code = 15239-2] Goal Plan of Care Note [code = 96398-5] Goal Plan of Care Note [code = 10754-3] Goal Plan of Care Note [code = 43131-5] Goal Plan of Care Note [code = 40245-8] Goal Plan of Care Note [code = 00236-7] Goal Plan of Care Note [code = 37792-6] Goal Plan of Care Note [code = 66789-4] Goal Plan of Care Note [code = 04895-6] Goal Plan of Care Note [code = 43378-7] Goal Plan of Care Note [code = 04347-7] Goal Plan of Care Note [code = 09449-8] Goal Plan of Care Note [code = 74269-6] Goal Plan of Care Note [code = 06548-6] Goal Plan of Care Note [code = 78272-2] Goal Plan of Care Note [code = 45538-9] Goal Plan of Care Note [code = 53556-2] Goal Plan of Care Note [code = 48060-8] Goal Plan of Care Note [code = 47495-4] Goal Plan of Care Note [code = 92931-9] Goal Plan of Care Note [code = 39301-1] Goal Plan of Care Note [code = 33936-0] Goal Plan of Care Note [code = 44911-8] Goal Plan of Care Note [code = 08962-8] Goal Plan of Care Note [code = 67140-9] Goal Plan of Care Note [code = 04346-0] Goal Plan of Care Note [code = 61108-8] Goal Plan of Care Note [code = 52309-4] Goal Plan of Care Note [code = 49584-6] Goal Plan of Care Note [code = 28391-8] Goal Plan of Care Note [code = 42749-3] Goal Plan of Care Note [code = 01212-8] Goal Plan of Care Note [code = 12125-5] Goal Plan of Care Note [code = 72395-6] Goal Plan of Care Note [code = 08623-4] Goal Plan of Care Note [code = 14840-2] Goal Plan of Care Note [code = 42300-7] Goal Plan of Care Note [code = 09532-1] Goal Plan of Care Note [code = 66091-6] Goal Plan of Care Note [code = 33432-6] Goal Plan of Care Note [code = 37405-8] Goal Plan of Care Note [code = 50553-3] Goal Plan of Care Note [code = 05316-6] Goal Plan of Care Note [code = 38486-8] Goal Plan of Care Note [code = 53730-4] Goal Plan of Care Note [code = 58272-4] Goal Plan of Care Note [code = 97960-1] Goal Plan of Care Note [code = 96282-4] Goal Plan of Care Note [code = 02164-2] Goal Plan of Care Note [code = 24442-6] Goal Plan of Care Note [code = 80802-6] Goal Plan of Care Note [code = 20897-6] Goal Plan of Care Note [code = 00292-5] Goal Plan of Care Note [code = 38799-9] Goal Plan of Care Note [code = 04220-2] Goal Plan of Care Note [code = 01138-4] Goal Plan of Care Note [code = 25240-9] Goal Plan of Care Note [code = 83839-8] Goal Plan of Care Note [code = 57527-6] Goal Plan of Care Note [code = 61830-6] Goal Plan of Care Note [code = 78985-6] Goal Plan of Care Note [code = 89798-8] Goal Plan of Care Note [code = 92965-8] Goal Plan of Care Note [code = 48633-3] Goal Plan of Care Note [code = 95112-8] Goal Plan of Care Note [code = 72513-8] Goal Plan of Care Note [code = 38423-2] Goal Plan of Care Note [code = 52495-6] Goal Plan of Care Note [code = 04447-0] Goal Plan of Care Note [code = 01427-8] Goal Plan of Care Note [code = 68168-3] Goal Plan of Care Note [code = 04429-2] Goal Plan of Care Note [code = 00101-6] Goal Plan of Care Note [code = 83796-6] Goal Plan of Care Note [code = 72286-0] Goal Plan of Care Note [code = 03824-0] Goal Plan of Care Note [code = 47496-5] Goal Plan of Care Note [code = 37132-8] Goal Plan of Care Note [code = 81672-6] Goal Plan of Care Note [code = 98922-6] Goal Plan of Care Note [code = 46279-3] Goal Plan of Care Note [code = 51779-1] Goal Plan of Care Note [code = 84584-5] Goal Plan of Care Note [code = 31401-7] Goal Plan of Care Note [code = 24085-9] Goal Plan of Care Note [code = 67995-0] Goal Plan of Care Note [code = 75692-6] Goal Plan of Care Note [code = 57405-6] Goal Plan of Care Note [code = 46384-2] Goal Plan of Care Note [code = 92243-7] Goal Plan of Care Note [code = 75545-2] Goal Plan of Care Note [code = 17229-9] Goal Plan of Care Note [code = 71391-0] Goal Plan of Care Note [code = 91442-1] Goal Plan of Care Note [code = 00736-0] Goal Plan of Care Note [code = 01990-0] Goal Plan of Care Note [code = 46074-3] Goal Plan of Care Note [code = 48723-4] Goal Plan of Care Note [code = 17863-8] Goal Plan of Care Note [code = 82679-7] Goal Plan of Care Note [code = 14756-2] Goal Plan of Care Note [code = 35458-6] Goal Plan of Care Note [code = 67138-9] Goal Plan of Care Note [code = 80400-0] Goal Plan of Care Note [code = 00593-4] Goal Plan of Care Note [code = 77420-9] Goal Plan of Care Note [code = 54444-7] Goal Plan of Care Note [code = 52648-3] Goal Plan of Care Note [code = 72116-7] Goal Plan of Care Note [code = 05310-2] Goal Plan of Care Note [code = 06725-9] Goal Plan of Care Note [code = 71210-6] Goal Plan of Care Note [code = 01867-1] Goal Plan of Care Note [code = 32703-0] Goal Plan of Care Note [code = 79545-5] Goal Plan of Care Note [code = 72117-5] Goal Plan of Care Note [code = 93518-0] Goal Plan of Care Note [code = 77695-3] Goal Plan of Care Note [code = 03351-9] Goal Plan of Care Note [code = 88774-9] Goal Plan of Care Note [code = 41123-1] Goal Plan of Care Note [code = 92292-3] Goal Plan of Care Note [code = 48932-0] Goal Plan of Care Note [code = 04383-6] Goal Plan of Care Note [code = 81744-6] Goal Plan of Care Note [code = 55088-6] Goal Plan of Care Note [code = 95380-5] Goal Plan of Care Note [code = 68870-1] Goal Plan of Care Note [code = 19519-2] Goal Plan of Care Note [code = 66937-7] Goal Plan of Care Note [code = 98052-0] Goal Plan of Care Note [code = 01937-5] Goal Plan of Care Note [code = 56854-1] Goal Plan of Care Note [code = 50278-9] Goal Plan of Care Note [code = 91888-0] Goal Plan of Care Note [code = 30660-3] Goal Plan of Care Note [code = 02667-7] Goal Plan of Care Note [code = 60019-9] Goal Plan of Care Note [code = 43853-6] Goal Plan of Care Note [code = 67402-3] Goal Plan of Care Note [code = 14595-0] Goal Plan of Care Note [code = 79901-4] Goal Plan of Care Note [code = 07406-2] Goal Plan of Care Note [code = 75226-4] Goal Plan of Care Note [code = 19773-7] Goal Plan of Care Note [code = 97412-4] Goal Plan of Care Note [code = 16122-5] Goal Plan of Care Note [code = 67791-9] Goal Plan of Care Note [code = 32431-8] Goal Plan of Care Note [code = 32174-3] Goal Plan of Care Note [code = 67319-0] Goal Plan of Care Note [code = 98358-8] Goal Plan of Care Note [code = 02072-0] Goal Plan of Care Note [code = 55669-6] Goal Plan of Care Note [code = 06522-7] Goal Plan of Care Note [code = 31731-6] Goal Plan of Care Note [code = 61313-7] Goal Plan of Care Note [code = 89455-9] Goal Plan of Care Note [code = 58478-7] Goal Plan of Care Note [code = 68960-7] Goal Plan of Care Note [code = 46719-7] Goal Plan of Care Note [code = 88752-2] Goal Plan of Care Note [code = 41644-1] Goal Plan of Care Note [code = 21249-2] Goal Plan of Care Note [code = 21425-9] Goal Plan of Care Note [code = 17091-3] Goal Plan of Care Note [code = 56342-7] Encounters Start End Encounter Admission Attending Care Care Encounter Source Date/Time Date/Time Type Type Clinicians Facility Department ID 2022-02-21 2022-02-21 Outpatient OLYA DOBSON [id number] [facility] 09:42:44 09:42:44 1020 F Bryant 2022-02-21 2022-02-21 Outpatient [id number] ad [id number] 00:00:00 00:00:00 Visit 53ef-4a09 3ef-4a09-b -bfac-33c fac-33cc6a [id number] 7760-09-15 2022-01-17 Outpatient [id number] 00:00:00 00:00:00 Visit 60ad-4cb3 0ad-4cb3-8 -89db-e07 [id number] 2022-01-11 2022-01-11 Outpatient [id number]- [id number] cb [id number] 00:00:00 00:00:00 Visit 8q86-181k n98-286p-d -c6pd-t52 8da-c477d8 [id number] 2021-12-12 2021-12-12 Outpatient [id number]- [id number] dd [id number] 00:00:00 00:00:00 Visit [id number] -86bf-bbb 6bf-bbbf7a [id number] [id number] 2021-12-01 2021-12-01 Outpatient [id number] 00:00:00 00:00:00 Visit [id number] 096-4bc6-a -y4b4-y2i 2m7-w6gg3x [id number] 1c090k 2019-05-28 2019-05-28 Outpatient Raju_P [facility] G [id number] [place] 12:48:00 12:48:00 0124 [facility] Results Test Description Test Time Test Comments Results Result Comments Source HIGH SENSITIVITY CRP 2022-02-22 04:48:03 Test Item Value Reference Range Interpretation Comme nts HIGH SENSITIVITY CRP (test code 8.6 MG/L SEE BELOW H hsCRP LEVEL RELATIVE RISK <1.0 = 31990) MG/L LOW 1.0-3. 0 MG/L AVERAGE >3.0 MG/L HIGH (from Hailey TCésarA. et al. Cir culation 2003; 107:499) URIC [id number] 04:20:30 Test Item Value Reference Range Interpretation Comments URIC ACID (test code = 2233) 4.9 MG/DL 2.7-6.1 LIPID [id number] 04:20:30 Test Item Value Reference Range Interpretation Comments CHOLESTEROL (test 131 MG/DL <200 code = 2210) TRIGLYCERIDES (test 82 MG/DL <150 code = 2232) HDL CHOLESTEROL (test 42 MG/DL >39 code = 2220) CALC LDL CHOL (test 73 MG/DL <100 NOTE: C ALCULATED LDL code = 2237) IS BASED ON VAISHALI-VERA METHOD WHICHINCLUDES ADJUSTABLE TRIGLYCERIDE:VL DL CHOLESTEROL RAT IO.THIS FACTOR VARIES B Y MEASURED TRIGLY CERIDE AND NON-HDLCHOL ESTEROL CONCENTRATIONS WITH INCREASED CALCU LATED LDL SEENIN HIGH ER TRIGLYCERIDE OR LOWER NON-HDL SPECIME NS. FOR MOREINFORMATION , SEE CLIENT ANNOUNCE MENT AT [email or web address] [email or web address] /CalcLDL-C RISK RATIO LDL/HDL 1.74 RATIO <3.22 (test code = 2238) COMPREHENSIVE METABOLIC [id number] 04:20:30 Test Item Value Reference Range Interpretation Comments GLUCOSE (test code = 111 MG/DL 70-99 H 2216) BUN (test code = 17 MG/DL 8-23 2207) CREATININE (test 0.55 MG/DL 0.60-1.30 L code = 2214) eGFR (2020 CKD-EPI) 105 >60 (test code = 45084) ML/MIN/1.73 CALC BUN/CREAT (test 31 RATIO 6-28 H code = 2235) SODIUM (test code = 143 MEQ/L 899-080 5991) POTASSIUM (test code 4.5 MEQ/L 3.5-5.4 = 2228) CHLORIDE (test code 108 MEQ/L 95-107 H = 2215) CARBON DIOXIDE (test 26 MEQ/L 19-31 code = 2206) CALCIUM (test code = 9.2 MG/DL 8.5-10.5 2208) PROTEIN, TOTAL (test 6.8 G/DL 6.1-8.3 code = 2229) ALBUMIN (test code = 3.9 G/DL 3.5-5.2 2200) CALC GLOBULIN (test 2.9 G/DL 1.9-3.7 code = 2240) CALC A/G RATIO (test 1.3 RATIO 1.0-2.6 code = 2234) BILIRUBIN, TOTAL 0.3 MG/DL See_Comment [Automated message] (test code = 2207) The [employer] which generated this result transmitted ref erence range: <=1.2. T he reference range was not used to int erpret this result as normal/abnormal . ALKALINE PHOSPHATASE 100 U/L 40-136 (test code = 2203) AST (test code = 17 U/L 9-40 2217) ALT (test code = 17 U/L 5-40 UNLESS OTH ERWISE 2218) INDICATED, ALL TESTING PERFORM ED ATCLINICAL PATH [facility], [facility]. [address] [place] [id number] [place] [address] DIRECTOR: CHON GOMEZ M.D. CLIA NUMBER [id number] CAP ACCREDITATION N O. [id number] HEMOGLOBIN [id number] 04:12:28 Test Item Value Reference Range Interpretation Comments HEMOGLOBIN A1c (test code = 89527) 5.6 % 4.2-5.6 SARS-CoV-2 (COVID-19), RT-PCR/[id number] 06:58:49 Test Item Value Reference Interpretation Comments Range SARS-CoV-2 NEGATIVE SEE NOTE SARS-CoV-2 RNA NOT INTERPRETATION DETECTEDNegat kimber (test code = 14745) results do not preclude SARS-C oV-2 infection and s hould notbe used as t he sole basis for patie nt management deci sions. Negativeresults must be combined wit h clinical observ ations, patient history ,and epidemiological information. Op timum specimen types and timingfor peak viral levels during infections caus ed by SARS-CoV-2 have notbeen determi edgardo. Collection of m ultiple specimens or ty pes ofspecimens may be necessary to de tect virus. Improper specimencollect ion and handling, seque nce variability und er primers/probes, or organism presen t below the limit of de tection may lead to falsenegative r esults. Positive and ne gative predictive valu es oftesting are h ighly dependent on prevalence. Fal se negative testre sults are more likely when prevalence is h igh. SOURCE (test code = NASOPHARYNGEAL Note: [place] [address]) Maranda Princess [place] l-Time RT-PCR. The exp ected result or refer ence range is NEGATI VE (Not Detected). For more information reg arding COVID-19 testin g to include clinicalinforma tion, methodology det ail, intended use, F DA authorization andrecommended fact sheets for myriam ents or healthcare prov iders, see NewTest Announcement: SARS-CoV-2 (COV ID-19) by NAAT at URL below (note,fact shee ts are provided by met hod given in report:https:// www.[email or web address]/[email or web address] ians/cl ient-[email or web address] ions/ Alternatively, see downloadable PD F fact sheet at:https://www. [email or web address]/COVID-19-R T-PCR UNLESS OTHERWIS E INDICATED, ALL TESTING PERFORMED [facility], [facility]. [address] [place] [id number] [place] [address] DIRECTOR: CHON GOMEZ M.D. CLIA NUMBER [id number] CAP ACCREDITATION N O. [id number] SARS-CoV-2 (COVID-19) by RT-PCR (HIGH RISK)2021-05-31 00:00:00 Test Item Value Reference Range Interpretation Comments SARS-CoV-2 INTERPRETATION NEGATIVE (test code = 65165) SOURCE (test code = 20828) NASOPHARYNGEAL SARS-CoV-2 (COVID-19) by RT-PCR (HIGH RISK)2021-05-31 00:00:00 Test Item Value Reference Range Interpretation Comments SARS-CoV-2 INTERPRETATION NEGATIVE (test code = 84632) SOURCE (test code = 54223) NASOPHARYNGEAL SARS-CoV-2 (COVID-19) by RT-PCR (HIGH RISK)2021-05-31 00:00:00 Test Item Value Reference Range Interpretation Comments SARS-CoV-2 INTERPRETATION NEGATIVE (test code = 13170) SOURCE (test code = 36970) NASOPHARYNGEAL SARS-CoV-2 (COVID-19) by RT-PCR (HIGH RISK)2021-05-31 00:00:00 Test Item Value Reference Range Interpretation Comments SARS-CoV-2 INTERPRETATION NEGATIVE (test code = 66726) SOURCE (test code = 88747) NASOPHARYNGEAL SARS-CoV-2 (COVID-19) by RT-PCR (HIGH RISK)2021-05-31 00:00:00 Test Item Value Reference Range Interpretation Comments SARS-CoV-2 INTERPRETATION NEGATIVE (test code = 09122) SOURCE (test code = 00673) NASOPHARYNGEAL SARS-CoV-2 (COVID-19) by RT-PCR (HIGH RISK)2021-05-31 00:00:00 Test Item Value Reference Range Interpretation Comments SARS-CoV-2 INTERPRETATION NEGATIVE (test code = 28051) SOURCE (test code = 15463) NASOPHARYNGEAL SARS-CoV-2 (COVID-19) by RT-PCR (HIGH RISK)2021-05-31 00:00:00 Test Item Value Reference Range Interpretation Comments SARS-CoV-2 INTERPRETATION NEGATIVE (test code = 82230) SOURCE (test code = 87287) NASOPHARYNGEAL SARS-CoV-2 (COVID-19) by RT-PCR (HIGH RISK)2021-05-31 00:00:00 Test Item Value Reference Range Interpretation Comments SARS-CoV-2 INTERPRETATION NEGATIVE (test code = 18363) SOURCE (test code = 78448) NASOPHARYNGEAL SARS-CoV-2 (COVID-19) by RT-PCR (HIGH RISK)2021-05-31 00:00:00 Test Item Value Reference Range Interpretation Comments SARS-CoV-2 INTERPRETATION NEGATIVE (test code = 08310) SOURCE (test code = 29365) NASOPHARYNGEAL SARS-CoV-2 (COVID-19), RT-PCR/[id number] 18:23:29 Test Item Value Reference Interpretation Comments Range SARS-CoV-2 POSITIVE SEE NOTE A SARS-CoV-2 RNA INTERPRETATION DETECTEDPosit kimber results (test code = 11094) are seng cative of the presence of ORQUIDEA S-CoV-2 RNA;clinical co rrelation with patient hi story and other diagnosticinfor mation is necessary to de termine patient infecti on status.Positive results do not rule out bacterial infection or co-infectionwit h other viruses. Positi ve and negative predic tive values oftestin g are highly dependen t on prevalence. SOURCE (test code = NOT SPECIFIED Note: [place] [address]) Maranda Princess [place] l-Time RT-PCR. The exp ected result or refer ence range is NEGATIVE (No t Detected). For more information reg arding COVID-19 testin g to include clinicalinforma tion, methodology det ail, intended use, F DA authorization andrecommended fact sheets for myriam ents or healthcare prov iders, see NewTest Announc ement: SARS-CoV-2 (COV ID-19) by NAAT at URL bel ow (note,fact shee ts are provided by met hod given in report:https:// www.[employer]/clinician s/client-c ommunications/ Alternatively, see downloadable PD F fact sheet at:https://www. [employer] [email or web address]-73-NV-P CR UNLESS OTHERWISE INDIC ATED, ALL TESTING PERFORM ED ATCLINICAL PATH [facility], [facility]. [address] [place] [address] LABORATORY DIRE CTOR: Shasta LILLY. CLIA NUMBER [id number] CAP ACCREDITATION N O. [id number] SARS-CoV-2 (COVID-19) by RT-PCR (HIGH RISK)2021-05-12 00:00:00 Test Item Value Reference Range Interpretation Comments SARS-CoV-2 INTERPRETATION (test POSITIVE code = 38828) SOURCE (test code = 79864) NOT SPECIFIED SARS-CoV-2 (COVID-19) by RT-PCR (HIGH RISK)2021-05-12 00:00:00 Test Item Value Reference Range Interpretation Comments SARS-CoV-2 INTERPRETATION (test POSITIVE code = 67970) SOURCE (test code = 11818) NOT SPECIFIED SARS-CoV-2 (COVID-19) by RT-PCR (HIGH RISK)2021-05-12 00:00:00 Test Item Value Reference Range Interpretation Comments SARS-CoV-2 INTERPRETATION (test POSITIVE code = 40577) SOURCE (test code = 51636) NOT SPECIFIED SARS-CoV-2 (COVID-19) by RT-PCR (HIGH RISK)2021-05-12 00:00:00 Test Item Value Reference Range Interpretation Comments SARS-CoV-2 INTERPRETATION (test POSITIVE code = 05507) SOURCE (test code = 73802) NOT SPECIFIED SARS-CoV-2 (COVID-19) by RT-PCR (HIGH RISK)2021-05-12 00:00:00 Test Item Value Reference Range Interpretation Comments SARS-CoV-2 INTERPRETATION (test POSITIVE code = 32297) SOURCE (test code = 06555) NOT SPECIFIED SARS-CoV-2 (COVID-19) by RT-PCR (HIGH RISK)2021-05-12 00:00:00 Test Item Value Reference Range Interpretation Comments SARS-CoV-2 INTERPRETATION (test POSITIVE code = 01039) SOURCE (test code = 34575) NOT SPECIFIED SARS-CoV-2 (COVID-19) by RT-PCR (HIGH RISK)2021-05-12 00:00:00 Test Item Value Reference Range Interpretation Comments SARS-CoV-2 INTERPRETATION (test POSITIVE code = 39990) SOURCE (test code = 83023) NOT SPECIFIED SARS-CoV-2 (COVID-19) by RT-PCR (HIGH RISK)2021-05-12 00:00:00 Test Item Value Reference Range Interpretation Comments SARS-CoV-2 INTERPRETATION (test POSITIVE code = 08667) SOURCE (test code = 62924) NOT SPECIFIED SARS-CoV-2 (COVID-19) by RT-PCR (HIGH RISK)2021-05-12 00:00:00 Test Item Value Reference Range Interpretation Comments SARS-CoV-2 INTERPRETATION (test POSITIVE code = 60569) SOURCE (test code = 96149) NOT SPECIFIED HEMOGLOBIN [id number] 00:00:00 Test Item Value Reference Range Interpretation Comments HEMOGLOBIN A1c (test code = 90972) 5.8 % HEMOGLOBIN [id number] 00:00:00 Test Item Value Reference Range Interpretation Comments HEMOGLOBIN A1c (test code = 57582) 5.8 % HEMOGLOBIN [id number] 00:00:00 Test Item Value Reference Range Interpretation Comments HEMOGLOBIN A1c (test code = 17621) 5.8 % LIPID [id number] 00:00:00 Test Item Value Reference Range Interpretation Comments CHOLESTEROL (test code = 2210) 181 MG/DL TRIGLYCERIDES (test code = 2232) 107 MG/DL HDL CHOLESTEROL (test code = 2220) 55 MG/DL CALC LDL CHOL (test code = 2237) 106 MG/DL RISK RATIO LDL/HDL (test code = 1.93 RATIO 2238) LIPID [id number] 00:00:00 Test Item Value Reference Range Interpretation Comments CHOLESTEROL (test code = 2210) 181 MG/DL TRIGLYCERIDES (test code = 2232) 107 MG/DL HDL CHOLESTEROL (test code = 2220) 55 MG/DL CALC LDL CHOL (test code = 2237) 106 MG/DL RISK RATIO LDL/HDL (test code = 1.93 RATIO 2238) COMPREHENSIVE METABOLIC [id number] 00:00:00 Test Item Value Reference Range Interpretation Comments GLUCOSE (test code = 2217) 119 MG/DL BUN (test code = 2208) 19 MG/DL CREATININE (test code = 2214) 0.55 MG/DL eGFR AMER. (test code 118 ML/MIN/1.73 = 51240) eGFR (2020 CKD-EPI) (test 102 ML/MIN/1.73 code = 88069) CALC BUN/CREAT (test code = 35 RATIO 2235) SODIUM (test code = 2231) 142 MEQ/L POTASSIUM (test code = 2228) 4.2 MEQ/L CHLORIDE (test code = 2215) 104 MEQ/L CARBON DIOXIDE (test code = 26 MEQ/L 2205) CALCIUM (test code = 2209) 9.6 MG/DL PROTEIN, TOTAL (test code = 7.2 G/DL 2228) ALBUMIN (test code = 2201) 4.1 G/DL CALC GLOBULIN (test code = 3.1 G/DL 2240) CALC A/G RATIO (test code = 1.3 RATIO 2234) BILIRUBIN, TOTAL (test code = 0.5 MG/DL 2206) ALKALINE PHOSPHATASE (test 79 U/L code = 2204) AST (test code = 2218) 17 U/L ALT (test code = 2219) 16 U/L COMPREHENSIVE METABOLIC [id number] 00:00:00 Test Item Value Reference Range Interpretation Comments GLUCOSE (test code = 2217) 119 MG/DL BUN (test code = 2208) 19 MG/DL CREATININE (test code = 2214) 0.55 MG/DL eGFR AMER. (test code 118 ML/MIN/1.73 = 89745) eGFR (2020 CKD-EPI) (test 102 ML/MIN/1.73 code = 53302) CALC BUN/CREAT (test code = 35 RATIO 5) SODIUM (test code = 2231) 142 MEQ/L POTASSIUM (test code = 2228) 4.2 MEQ/L CHLORIDE (test code = 2215) 104 MEQ/L CARBON DIOXIDE (test code = 26 MEQ/L 2205) CALCIUM (test code = 2209) 9.6 MG/DL PROTEIN, TOTAL (test code = 7.2 G/DL 2228) ALBUMIN (test code = 220) 4.1 G/DL CALC GLOBULIN (test code = 3.1 G/DL 2239) CALC A/G RATIO (test code = 1.3 RATIO 2233) BILIRUBIN, TOTAL (test code = 0.5 MG/DL 2206) ALKALINE PHOSPHATASE (test 79 U/L code = 220) AST (test code = 2218) 17 U/L ALT (test code = 2219) 16 U/L CCP [id number] 00:00:00 Test Item Value Reference Range Interpretation Comments CCP IgG (test code = 78482) <0.5 U/ML CCP [id number] 00:00:00 Test Item Value Reference Range Interpretation Comments CCP IgG (test code = 83007) <0.5 U/ML CCP [id number] 00:00:00 Test Item Value Reference Range Interpretation Comments CCP IgG (test code = 43935) <0.5 U/ML SEDIMENTATION [id number] 00:00:00 Test Item Value Reference Range Interpretation Comments SEDIMENTATION RATE (test code = 26 MM/HOUR 1017) SEDIMENTATION [id number] 00:00:00 Test Item Value Reference Range Interpretation Comments SEDIMENTATION RATE (test code = 26 MM/HOUR 1017) URIC [id number] 00:00:00 Test Item Value Reference Range Interpretation Comments URIC ACID (test code = 2233) 6.5 MG/DL URIC [id number] 00:00:00 Test Item Value Reference Range Interpretation Comments URIC ACID (test code = 2233) 6.5 MG/DL RHEUMATOID FACTOR, [id number] 00:00:00 Test Item Value Reference Range Interpretation Comments RHEUMATOID FACTOR, QUANT (test code <10 IU/ML = 3502) RHEUMATOID FACTOR, [id number] 00:00:00 Test Item Value Reference Range Interpretation Comments RHEUMATOID FACTOR, QUANT (test code <10 IU/ML = 3502) RHEUMATOID FACTOR, [id number] 00:00:00 Test Item Value Reference Range Interpretation Comments RHEUMATOID FACTOR, QUANT (test code <10 IU/ML = 3502) LINDA (ANTI-NUCLEAR AB) WITH REFLEX [id number] 00:00:00 Test Item Value Reference Range Interpretation Comments ANTI-NUCLEAR ANTIBODIES (test code = NEGATIVE 3506) LINDA (ANTI-NUCLEAR AB) WITH REFLEX [id number] 00:00:00 Test Item Value Reference Range Interpretation Comments ANTI-NUCLEAR ANTIBODIES (test code = NEGATIVE 3506) HEMOGLOBIN [id number] 00:00:00 Test Item Value Reference Range Interpretation Comments HEMOGLOBIN A1c (test code = 70409) 5.8 % HEMOGLOBIN [id number] 00:00:00 Test Item Value Reference Range Interpretation Comments HEMOGLOBIN A1c (test code = 37152) 5.8 % LIPID [id number] 00:00:00 Test Item Value Reference Range Interpretation Comments CHOLESTEROL (test code = 2210) 181 MG/DL TRIGLYCERIDES (test code = 2232) 107 MG/DL HDL CHOLESTEROL (test code = 2220) 55 MG/DL CALC LDL CHOL (test code = 2237) 106 MG/DL RISK RATIO LDL/HDL (test code = 1.93 RATIO 2238) COMPREHENSIVE METABOLIC [id number] 00:00:00 Test Item Value Reference Range Interpretation Comments GLUCOSE (test code = 2217) 119 MG/DL BUN (test code = 2208) 19 MG/DL CREATININE (test code = 2214) 0.55 MG/DL eGFR AMER. (test code 118 ML/MIN/1.73 = 82861) eGFR (2020 CKD-EPI) (test 102 ML/MIN/1.73 code = 29925) CALC BUN/CREAT (test code = 35 RATIO 2235) SODIUM (test code = 2231) 142 MEQ/L POTASSIUM (test code = 2228) 4.2 MEQ/L CHLORIDE (test code = 2215) 104 MEQ/L CARBON DIOXIDE (test code = 26 MEQ/L 2205) CALCIUM (test code = 2209) 9.6 MG/DL PROTEIN, TOTAL (test code = 7.2 G/DL 2228) ALBUMIN (test code = 2201) 4.1 G/DL CALC GLOBULIN (test code = 3.1 G/DL 2240) CALC A/G RATIO (test code = 1.3 RATIO 2234) BILIRUBIN, TOTAL (test code = 0.5 MG/DL 2206) ALKALINE PHOSPHATASE (test 79 U/L code = 2204) AST (test code = 2218) 17 U/L ALT (test code = 2219) 16 U/L CCP [id number] 00:00:00 Test Item Value Reference Range Interpretation Comments CCP IgG (test code = 32093) <0.5 U/ML CCP [id number] 00:00:00 Test Item Value Reference Range Interpretation Comments CCP IgG (test code = 89350) <0.5 U/ML SEDIMENTATION [id number] 00:00:00 Test Item Value Reference Range Interpretation Comments SEDIMENTATION RATE (test code = 26 MM/HOUR 1017) URIC [id number] 00:00:00 Test Item Value Reference Range Interpretation Comments URIC ACID (test code = 2233) 6.5 MG/DL RHEUMATOID FACTOR, [id number] 00:00:00 Test Item Value Reference Range Interpretation Comments RHEUMATOID FACTOR, QUANT (test code <10 IU/ML = 3502) RHEUMATOID FACTOR, [id number] 00:00:00 Test Item Value Reference Range Interpretation Comments RHEUMATOID FACTOR, QUANT (test code <10 IU/ML = 3502) LINDA (ANTI-NUCLEAR AB) WITH REFLEX [id number] 00:00:00 Test Item Value Reference Range Interpretation Comments ANTI-NUCLEAR ANTIBODIES (test code = NEGATIVE 3506) HEMOGLOBIN [id number] 00:00:00 Test Item Value Reference Range Interpretation Comments HEMOGLOBIN A1c (test code = 50684) 5.8 % HEMOGLOBIN [id number] 00:00:00 Test Item Value Reference Range Interpretation Comments HEMOGLOBIN A1c (test code = 83467) 5.8 % HEMOGLOBIN [id number] 00:00:00 Test Item Value Reference Range Interpretation Comments HEMOGLOBIN A1c (test code = 04393) 5.8 % LIPID [id number] 00:00:00 Test Item Value Reference Range Interpretation Comments CHOLESTEROL (test code = 2210) 181 MG/DL TRIGLYCERIDES (test code = 2232) 107 MG/DL HDL CHOLESTEROL (test code = 2220) 55 MG/DL CALC LDL CHOL (test code = 2237) 106 MG/DL RISK RATIO LDL/HDL (test code = 1.93 RATIO 2238) LIPID [id number] 00:00:00 Test Item Value Reference Range Interpretation Comments CHOLESTEROL (test code = 2210) 181 MG/DL TRIGLYCERIDES (test code = 2232) 107 MG/DL HDL CHOLESTEROL (test code = 2220) 55 MG/DL CALC LDL CHOL (test code = 2237) 106 MG/DL RISK RATIO LDL/HDL (test code = 1.93 RATIO 2238) COMPREHENSIVE METABOLIC [id number] 00:00:00 Test Item Value Reference Range Interpretation Comments GLUCOSE (test code = 2217) 119 MG/DL BUN (test code = 2208) 19 MG/DL CREATININE (test code = 2214) 0.55 MG/DL eGFR AMER. (test code 118 ML/MIN/1.73 = 81751) eGFR (2020 CKD-EPI) (test 102 ML/MIN/1.73 code = 72548) CALC BUN/CREAT (test code = 35 RATIO 2235) SODIUM (test code = 2231) 142 MEQ/L POTASSIUM (test code = 2228) 4.2 MEQ/L CHLORIDE (test code = 2215) 104 MEQ/L CARBON DIOXIDE (test code = 26 MEQ/L 2205) CALCIUM (test code = 2209) 9.6 MG/DL PROTEIN, TOTAL (test code = 7.2 G/DL 2228) ALBUMIN (test code = 2201) 4.1 G/DL CALC GLOBULIN (test code = 3.1 G/DL 2240) CALC A/G RATIO (test code = 1.3 RATIO 2234) BILIRUBIN, TOTAL (test code = 0.5 MG/DL 2206) ALKALINE PHOSPHATASE (test 79 U/L code = 2204) AST (test code = 2218) 17 U/L ALT (test code = 2219) 16 U/L COMPREHENSIVE METABOLIC [id number] 00:00:00 Test Item Value Reference Range Interpretation Comments GLUCOSE (test code = 2217) 119 MG/DL BUN (test code = 2208) 19 MG/DL CREATININE (test code = 2214) 0.55 MG/DL eGFR AMER. (test code 118 ML/MIN/1.73 = 04822) eGFR (2020 CKD-EPI) (test 102 ML/MIN/1.73 code = 79790) CALC BUN/CREAT (test code = 35 RATIO 2234) SODIUM (test code = 2231) 142 MEQ/L POTASSIUM (test code = 2228) 4.2 MEQ/L CHLORIDE (test code = 2215) 104 MEQ/L CARBON DIOXIDE (test code = 26 MEQ/L 2205) CALCIUM (test code = 2209) 9.6 MG/DL PROTEIN, TOTAL (test code = 7.2 G/DL 2228) ALBUMIN (test code = 220) 4.1 G/DL CALC GLOBULIN (test code = 3.1 G/DL 2239) CALC A/G RATIO (test code = 1.3 RATIO 2233) BILIRUBIN, TOTAL (test code = 0.5 MG/DL 2206) ALKALINE PHOSPHATASE (test 79 U/L code = 2204) AST (test code = 2218) 17 U/L ALT (test code = 2219) 16 U/L CCP [id number] 00:00:00 Test Item Value Reference Range Interpretation Comments CCP IgG (test code = 98528) <0.5 U/ML CCP [id number] 00:00:00 Test Item Value Reference Range Interpretation Comments CCP IgG (test code = 22451) <0.5 U/ML CCP [id number] 00:00:00 Test Item Value Reference Range Interpretation Comments CCP IgG (test code = 84329) <0.5 U/ML SEDIMENTATION [id number] 00:00:00 Test Item Value Reference Range Interpretation Comments SEDIMENTATION RATE (test code = 26 MM/HOUR 1017) SEDIMENTATION [id number] 00:00:00 Test Item Value Reference Range Interpretation Comments SEDIMENTATION RATE (test code = 26 MM/HOUR 1017) URIC [id number] 00:00:00 Test Item Value Reference Range Interpretation Comments URIC ACID (test code = 2233) 6.5 MG/DL URIC [id number] 00:00:00 Test Item Value Reference Range Interpretation Comments URIC ACID (test code = 2233) 6.5 MG/DL RHEUMATOID FACTOR, [id number] 00:00:00 Test Item Value Reference Range Interpretation Comments RHEUMATOID FACTOR, QUANT (test code <10 IU/ML = 3502) RHEUMATOID FACTOR, [id number] 00:00:00 Test Item Value Reference Range Interpretation Comments RHEUMATOID FACTOR, QUANT (test code <10 IU/ML = 3502) RHEUMATOID FACTOR, [id number] 00:00:00 Test Item Value Reference Range Interpretation Comments RHEUMATOID FACTOR, QUANT (test code <10 IU/ML = 3502) LINDA (ANTI-NUCLEAR AB) WITH REFLEX [id number] 00:00:00 Test Item Value Reference Range Interpretation Comments ANTI-NUCLEAR ANTIBODIES (test code = NEGATIVE 3506) LINDA (ANTI-NUCLEAR AB) WITH REFLEX [id number] 00:00:00 Test Item Value Reference Range Interpretation Comments ANTI-NUCLEAR ANTIBODIES (test code = NEGATIVE 3506) HEMOGLOBIN [id number] 00:00:00 Test Item Value Reference Range Interpretation Comments HEMOGLOBIN A1c (test code = 96766) 5.8 % HEMOGLOBIN [id number] 00:00:00 Test Item Value Reference Range Interpretation Comments HEMOGLOBIN A1c (test code = 88867) 5.8 % HEMOGLOBIN [id number] 00:00:00 Test Item Value Reference Range Interpretation Comments HEMOGLOBIN A1c (test code = 10489) 5.8 % LIPID [id number] 00:00:00 Test Item Value Reference Range Interpretation Comments CHOLESTEROL (test code = 2210) 181 MG/DL TRIGLYCERIDES (test code = 2232) 107 MG/DL HDL CHOLESTEROL (test code = 2220) 55 MG/DL CALC LDL CHOL (test code = 2237) 106 MG/DL RISK RATIO LDL/HDL (test code = 1.93 RATIO 2238) LIPID [id number] 00:00:00 Test Item Value Reference Range Interpretation Comments CHOLESTEROL (test code = 2210) 181 MG/DL TRIGLYCERIDES (test code = 2232) 107 MG/DL HDL CHOLESTEROL (test code = 2220) 55 MG/DL CALC LDL CHOL (test code = 2237) 106 MG/DL RISK RATIO LDL/HDL (test code = 1.93 RATIO 2238) COMPREHENSIVE METABOLIC [id number] 00:00:00 Test Item Value Reference Range Interpretation Comments GLUCOSE (test code = 2217) 119 MG/DL BUN (test code = 2208) 19 MG/DL CREATININE (test code = 2214) 0.55 MG/DL eGFR AMER. (test code 118 ML/MIN/1.73 = 76503) eGFR (2020 CKD-EPI) (test 102 ML/MIN/1.73 code = 70240) CALC BUN/CREAT (test code = 35 RATIO 2235) SODIUM (test code = 2231) 142 MEQ/L POTASSIUM (test code = 2228) 4.2 MEQ/L CHLORIDE (test code = 2215) 104 MEQ/L CARBON DIOXIDE (test code = 26 MEQ/L 220) CALCIUM (test code = 2209) 9.6 MG/DL PROTEIN, TOTAL (test code = 7.2 G/DL 2228) ALBUMIN (test code = 2201) 4.1 G/DL CALC GLOBULIN (test code = 3.1 G/DL 2240) CALC A/G RATIO (test code = 1.3 RATIO 2234) BILIRUBIN, TOTAL (test code = 0.5 MG/DL 2206) ALKALINE PHOSPHATASE (test 79 U/L code = 2204) AST (test code = 2218) 17 U/L ALT (test code = 2219) 16 U/L COMPREHENSIVE METABOLIC [id number] 00:00:00 Test Item Value Reference Range Interpretation Comments GLUCOSE (test code = 2217) 119 MG/DL BUN (test code = 2208) 19 MG/DL CREATININE (test code = 2214) 0.55 MG/DL eGFR AMER. (test code 118 ML/MIN/1.73 = 63754) eGFR (2020 CKD-EPI) (test 102 ML/MIN/1.73 code = 00011) CALC BUN/CREAT (test code = 35 RATIO 2235) SODIUM (test code = 2231) 142 MEQ/L POTASSIUM (test code = 2228) 4.2 MEQ/L CHLORIDE (test code = 2215) 104 MEQ/L CARBON DIOXIDE (test code = 26 MEQ/L 2205) CALCIUM (test code = 2209) 9.6 MG/DL PROTEIN, TOTAL (test code = 7.2 G/DL 2228) ALBUMIN (test code = 2201) 4.1 G/DL CALC GLOBULIN (test code = 3.1 G/DL 2240) CALC A/G RATIO (test code = 1.3 RATIO 2234) BILIRUBIN, TOTAL (test code = 0.5 MG/DL 2206) ALKALINE PHOSPHATASE (test 79 U/L code = 2204) AST (test code = 2218) 17 U/L ALT (test code = 2219) 16 U/L CCP [id number] 00:00:00 Test Item Value Reference Range Interpretation Comments CCP IgG (test code = 43155) <0.5 U/ML CCP [id number] 00:00:00 Test Item Value Reference Range Interpretation Comments CCP IgG (test code = 77271) <0.5 U/ML CCP [id number] 00:00:00 Test Item Value Reference Range Interpretation Comments CCP IgG (test code = 94966) <0.5 U/ML SEDIMENTATION [id number] 00:00:00 Test Item Value Reference Range Interpretation Comments SEDIMENTATION RATE (test code = 26 MM/HOUR 1017) SEDIMENTATION [id number] 00:00:00 Test Item Value Reference Range Interpretation Comments SEDIMENTATION RATE (test code = 26 MM/HOUR 1017) URIC [id number] 00:00:00 Test Item Value Reference Range Interpretation Comments URIC ACID (test code = 2233) 6.5 MG/DL URIC [id number] 00:00:00 Test Item Value Reference Range Interpretation Comments URIC ACID (test code = 2233) 6.5 MG/DL RHEUMATOID FACTOR, [id number] 00:00:00 Test Item Value Reference Range Interpretation Comments RHEUMATOID FACTOR, QUANT (test code <10 IU/ML = 3502) RHEUMATOID FACTOR, [id number] 00:00:00 Test Item Value Reference Range Interpretation Comments RHEUMATOID FACTOR, QUANT (test code <10 IU/ML = 3502) RHEUMATOID FACTOR, [id number] 00:00:00 Test Item Value Reference Range Interpretation Comments RHEUMATOID FACTOR, QUANT (test code <10 IU/ML = 3502) LINDA (ANTI-NUCLEAR AB) WITH REFLEX [id number] 00:00:00 Test Item Value Reference Range Interpretation Comments ANTI-NUCLEAR ANTIBODIES (test code = NEGATIVE 3506) LINDA (ANTI-NUCLEAR AB) WITH REFLEX [id number] 00:00:00 Test Item Value Reference Range Interpretation Comments ANTI-NUCLEAR ANTIBODIES (test code = NEGATIVE 3506) HEMOGLOBIN [id number] 00:00:00 Test Item Value Reference Range Interpretation Comments HEMOGLOBIN A1c (test code = 56652) 5.8 % HEMOGLOBIN [id number] 00:00:00 Test Item Value Reference Range Interpretation Comments HEMOGLOBIN A1c (test code = 38200) 5.8 % HEMOGLOBIN [id number] 00:00:00 Test Item Value Reference Range Interpretation Comments HEMOGLOBIN A1c (test code = 55253) 5.8 % LIPID [id number] 00:00:00 Test Item Value Reference Range Interpretation Comments CHOLESTEROL (test code = 2210) 181 MG/DL TRIGLYCERIDES (test code = 2232) 107 MG/DL HDL CHOLESTEROL (test code = 2220) 55 MG/DL CALC LDL CHOL (test code = 2237) 106 MG/DL RISK RATIO LDL/HDL (test code = 1.93 RATIO 2238) LIPID [id number] 00:00:00 Test Item Value Reference Range Interpretation Comments CHOLESTEROL (test code = 2210) 181 MG/DL TRIGLYCERIDES (test code = 2232) 107 MG/DL HDL CHOLESTEROL (test code = 2220) 55 MG/DL CALC LDL CHOL (test code = 2237) 106 MG/DL RISK RATIO LDL/HDL (test code = 1.93 RATIO 2238) COMPREHENSIVE METABOLIC [id number] 00:00:00 Test Item Value Reference Range Interpretation Comments GLUCOSE (test code = 2217) 119 MG/DL BUN (test code = 2208) 19 MG/DL CREATININE (test code = 2214) 0.55 MG/DL eGFR AMER. (test code 118 ML/MIN/1.73 = 67821) eGFR (2020 CKD-EPI) (test 102 ML/MIN/1.73 code = 37796) CALC BUN/CREAT (test code = 35 RATIO 2235) SODIUM (test code = 2231) 142 MEQ/L POTASSIUM (test code = 2228) 4.2 MEQ/L CHLORIDE (test code = 2215) 104 MEQ/L CARBON DIOXIDE (test code = 26 MEQ/L 2205) CALCIUM (test code = 2209) 9.6 MG/DL PROTEIN, TOTAL (test code = 7.2 G/DL 2228) ALBUMIN (test code = 220) 4.1 G/DL CALC GLOBULIN (test code = 3.1 G/DL 2239) CALC A/G RATIO (test code = 1.3 RATIO 2234) BILIRUBIN, TOTAL (test code = 0.5 MG/DL 2206) ALKALINE PHOSPHATASE (test 79 U/L code = 2204) AST (test code = 2218) 17 U/L ALT (test code = 2219) 16 U/L COMPREHENSIVE METABOLIC [id number] 00:00:00 Test Item Value Reference Range Interpretation Comments GLUCOSE (test code = 2217) 119 MG/DL BUN (test code = 2208) 19 MG/DL CREATININE (test code = 2214) 0.55 MG/DL eGFR AMER. (test code 118 ML/MIN/1.73 = 88788) eGFR (2020 CKD-EPI) (test 102 ML/MIN/1.73 code = 96895) CALC BUN/CREAT (test code = 35 RATIO 2235) SODIUM (test code = 2231) 142 MEQ/L POTASSIUM (test code = 2228) 4.2 MEQ/L CHLORIDE (test code = 2215) 104 MEQ/L CARBON DIOXIDE (test code = 26 MEQ/L 2205) CALCIUM (test code = 2209) 9.6 MG/DL PROTEIN, TOTAL (test code = 7.2 G/DL 2228) ALBUMIN (test code = 2201) 4.1 G/DL CALC GLOBULIN (test code = 3.1 G/DL 2240) CALC A/G RATIO (test code = 1.3 RATIO 4) BILIRUBIN, TOTAL (test code = 0.5 MG/DL 2206) ALKALINE PHOSPHATASE (test 79 U/L code = 2204) AST (test code = 2218) 17 U/L ALT (test code = 2219) 16 U/L CCP [id number] 00:00:00 Test Item Value Reference Range Interpretation Comments CCP IgG (test code = 45576) <0.5 U/ML CCP [id number] 00:00:00 Test Item Value Reference Range Interpretation Comments CCP IgG (test code = 58742) <0.5 U/ML CCP [id number] 00:00:00 Test Item Value Reference Range Interpretation Comments CCP IgG (test code = 34316) <0.5 U/ML SEDIMENTATION [id number] 00:00:00 Test Item Value Reference Range Interpretation Comments SEDIMENTATION RATE (test code = 26 MM/HOUR 1017) SEDIMENTATION [id number] 00:00:00 Test Item Value Reference Range Interpretation Comments SEDIMENTATION RATE (test code = 26 MM/HOUR 1017) URIC [id number] 00:00:00 Test Item Value Reference Range Interpretation Comments URIC ACID (test code = 2233) 6.5 MG/DL URIC [id number] 00:00:00 Test Item Value Reference Range Interpretation Comments URIC ACID (test code = 2233) 6.5 MG/DL RHEUMATOID FACTOR, [id number] 00:00:00 Test Item Value Reference Range Interpretation Comments RHEUMATOID FACTOR, QUANT (test code <10 IU/ML = 3502) RHEUMATOID FACTOR, [id number] 00:00:00 Test Item Value Reference Range Interpretation Comments RHEUMATOID FACTOR, QUANT (test code <10 IU/ML = 3502) RHEUMATOID FACTOR, [id number] 00:00:00 Test Item Value Reference Range Interpretation Comments RHEUMATOID FACTOR, QUANT (test code <10 IU/ML = 3502) LINDA (ANTI-NUCLEAR AB) WITH REFLEX [id number] 00:00:00 Test Item Value Reference Range Interpretation Comments ANTI-NUCLEAR ANTIBODIES (test code = NEGATIVE 3506) LINDA (ANTI-NUCLEAR AB) WITH REFLEX [id number] 00:00:00 Test Item Value Reference Range Interpretation Comments ANTI-NUCLEAR ANTIBODIES (test code = NEGATIVE 3506) COMPREHENSIVE METABOLIC [id number] 00:00:00 Test Item Value Reference Range Interpretation Comments GLUCOSE (test code = 2217) 111 MG/DL BUN (test code = 2208) 26 MG/DL CREATININE (test code = 2214) 0.55 MG/DL eGFR AMER. (test code 119 ML/MIN/1.73 = 83083) eGFR NON- AMER. (test 103 ML/MIN/1.73 code = 02830) CALC BUN/CREAT (test code = 47 RATIO 2234) SODIUM (test code = 2231) 142 MEQ/L POTASSIUM (test code = 2228) 4.3 MEQ/L CHLORIDE (test code = 2215) 106 MEQ/L CARBON DIOXIDE (test code = 27 MEQ/L 2205) CALCIUM (test code = 2209) 9.4 MG/DL PROTEIN, TOTAL (test code = 7.3 G/DL 2228) ALBUMIN (test code = 2201) 4.2 G/DL CALC GLOBULIN (test code = 3.1 G/DL 2239) CALC A/G RATIO (test code = 1.4 RATIO 2234) BILIRUBIN, TOTAL (test code = 0.3 MG/DL 2206) ALKALINE PHOSPHATASE (test 86 U/L code = 2204) AST (test code = 2218) 13 U/L ALT (test code = 2219) 13 U/L COMPREHENSIVE METABOLIC [id number] 00:00:00 Test Item Value Reference Range Interpretation Comments GLUCOSE (test code = 2217) 111 MG/DL BUN (test code = 2208) 26 MG/DL CREATININE (test code = 2214) 0.55 MG/DL eGFR AMER. (test code 119 ML/MIN/1.73 = 24941) eGFR NON- AMER. (test 103 ML/MIN/1.73 code = 91843) CALC BUN/CREAT (test code = 47 RATIO 2235) SODIUM (test code = 2231) 142 MEQ/L POTASSIUM (test code = 2228) 4.3 MEQ/L CHLORIDE (test code = 2215) 106 MEQ/L CARBON DIOXIDE (test code = 27 MEQ/L 2205) CALCIUM (test code = 2209) 9.4 MG/DL PROTEIN, TOTAL (test code = 7.3 G/DL 2228) ALBUMIN (test code = 2201) 4.2 G/DL CALC GLOBULIN (test code = 3.1 G/DL 2240) CALC A/G RATIO (test code = 1.4 RATIO 2234) BILIRUBIN, TOTAL (test code = 0.3 MG/DL 2206) ALKALINE PHOSPHATASE (test 86 U/L code = 2204) AST (test code = 2218) 13 U/L ALT (test code = 2219) 13 U/L CBC W/AUTO [id number] 00:00:00 Test Item Value Reference Range Interpretation Comments WBC (test code = 1001) 6.7 K/UL RBC (test code = 1002) 4.11 M/UL HEMOGLOBIN (test code = 1003) 12.6 G/DL HEMATOCRIT (test code = 1004) 36.4 % MCV (test code = 1005) 88.6 fL MCH (test code = 1006) 30.7 PG MCHC (test code = 1007) 34.6 G/DL RDW (test code = 1038) 12.2 % NEUTROPHILS (test code = 1008) 54.5 % LYMPHOCYTES (test code = 1010) 38.4 % MONOCYTES (test code = 1011) 5.3 % EOSINOPHILS (test code = 1012) 1.2 % BASOPHILS (test code = 1013) 0.3 % IMMATURE GRANULOCYTES (test 0.3 % code = 1036) NUCLEATED RBCS (test code = 0.0 /100WBC'S 1065) PLATELET COUNT (test code = 270 K/UL 1015) ABSOLUTE NEUTROPHILS (test code 3.67 K/UL = 1066) ABSOLUTE LYMPHOCYTES (test code 2.59 K/UL = 1067) ABSOLUTE MONOCYTES (test code = 0.36 K/UL 1068) ABSOLUTE EOSINOPHILS (test code 0.08 K/UL = 1040) ABSOLUTE BASOPHILS (test code = 0.02 K/UL 1069) ABS IMMATURE GRANULOCYTES (test 0.02 K/UL code = 1020) ABS NUCLEATED RBCS (test code = 0.00 K/UL 29889) CBC W/AUTO [id number] 00:00:00 Test Item Value Reference Range Interpretation Comments WBC (test code = 1001) 6.7 K/UL RBC (test code = 1002) 4.11 M/UL HEMOGLOBIN (test code = 1003) 12.6 G/DL HEMATOCRIT (test code = 1004) 36.4 % MCV (test code = 1005) 88.6 fL MCH (test code = 1006) 30.7 PG MCHC (test code = 1007) 34.6 G/DL RDW (test code = 1038) 12.2 % NEUTROPHILS (test code = 1008) 54.5 % LYMPHOCYTES (test code = 1010) 38.4 % MONOCYTES (test code = 1011) 5.3 % EOSINOPHILS (test code = 1012) 1.2 % BASOPHILS (test code = 1013) 0.3 % IMMATURE GRANULOCYTES (test 0.3 % code = 1036) NUCLEATED RBCS (test code = 0.0 /100WBC'S 1065) PLATELET COUNT (test code = 270 K/UL 1015) ABSOLUTE NEUTROPHILS (test code 3.67 K/UL = 1066) ABSOLUTE LYMPHOCYTES (test code 2.59 K/UL = 1067) ABSOLUTE MONOCYTES (test code = 0.36 K/UL 1068) ABSOLUTE EOSINOPHILS (test code 0.08 K/UL = 1040) ABSOLUTE BASOPHILS (test code = 0.02 K/UL 1069) ABS IMMATURE GRANULOCYTES (test 0.02 K/UL code = 1020) ABS NUCLEATED RBCS (test code = 0.00 K/UL 53301) CBC W/AUTO [id number] 00:00:00 Test Item Value Reference Range Interpretation Comments WBC (test code = 1001) 6.7 K/UL RBC (test code = 1002) 4.11 M/UL HEMOGLOBIN (test code = 1003) 12.6 G/DL HEMATOCRIT (test code = 1004) 36.4 % MCV (test code = 1005) 88.6 fL MCH (test code = 1006) 30.7 PG MCHC (test code = 1007) 34.6 G/DL RDW (test code = 1038) 12.2 % NEUTROPHILS (test code = 1008) 54.5 % LYMPHOCYTES (test code = 1010) 38.4 % MONOCYTES (test code = 1011) 5.3 % EOSINOPHILS (test code = 1012) 1.2 % BASOPHILS (test code = 1013) 0.3 % IMMATURE GRANULOCYTES (test 0.3 % code = 1036) NUCLEATED RBCS (test code = 0.0 /100WBC'S 1065) PLATELET COUNT (test code = 270 K/UL 1015) ABSOLUTE NEUTROPHILS (test code 3.67 K/UL = 1066) ABSOLUTE LYMPHOCYTES (test code 2.59 K/UL = 1067) ABSOLUTE MONOCYTES (test code = 0.36 K/UL 1068) ABSOLUTE EOSINOPHILS (test code 0.08 K/UL = 1040) ABSOLUTE BASOPHILS (test code = 0.02 K/UL 1069) ABS IMMATURE GRANULOCYTES (test 0.02 K/UL code = 1020) ABS NUCLEATED RBCS (test code = 0.00 K/UL 65299) [id number] 00:00:00 Test Item Value Reference Range Interpretation Comments TSH, THIRD GENERATION (test code 2.030 UIU/ML = 2821) [id number] 00:00:00 Test Item Value Reference Range Interpretation Comments TSH, THIRD GENERATION (test code 2.030 UIU/ML = 2821) [id number] 00:00:00 Test Item Value Reference Range Interpretation Comments TSH, THIRD GENERATION (test code 2.030 UIU/ML = 2821) COMPREHENSIVE METABOLIC [id number] 00:00:00 Test Item Value Reference Range Interpretation Comments GLUCOSE (test code = 2217) 111 MG/DL BUN (test code = 2208) 26 MG/DL CREATININE (test code = 2214) 0.55 MG/DL eGFR AMER. (test code 119 ML/MIN/1.73 = 32065) eGFR NON- AMER. (test 103 ML/MIN/1.73 code = 62600) CALC BUN/CREAT (test code = 47 RATIO 2235) SODIUM (test code = 2231) 142 MEQ/L POTASSIUM (test code = 2228) 4.3 MEQ/L CHLORIDE (test code = 2215) 106 MEQ/L CARBON DIOXIDE (test code = 27 MEQ/L 2205) CALCIUM (test code = 2209) 9.4 MG/DL PROTEIN, TOTAL (test code = 7.3 G/DL 2228) ALBUMIN (test code = 2201) 4.2 G/DL CALC GLOBULIN (test code = 3.1 G/DL 2239) CALC A/G RATIO (test code = 1.4 RATIO 2233) BILIRUBIN, TOTAL (test code = 0.3 MG/DL 2206) ALKALINE PHOSPHATASE (test 86 U/L code = 2204) AST (test code = 2218) 13 U/L ALT (test code = 2219) 13 U/L CBC W/AUTO [id number] 00:00:00 Test Item Value Reference Range Interpretation Comments WBC (test code = 1001) 6.7 K/UL RBC (test code = 1002) 4.11 M/UL HEMOGLOBIN (test code = 1003) 12.6 G/DL HEMATOCRIT (test code = 1004) 36.4 % MCV (test code = 1005) 88.6 fL MCH (test code = 1006) 30.7 PG MCHC (test code = 1007) 34.6 G/DL RDW (test code = 1038) 12.2 % NEUTROPHILS (test code = 1008) 54.5 % LYMPHOCYTES (test code = 1010) 38.4 % MONOCYTES (test code = 1011) 5.3 % EOSINOPHILS (test code = 1012) 1.2 % BASOPHILS (test code = 1013) 0.3 % IMMATURE GRANULOCYTES (test 0.3 % code = 1036) NUCLEATED RBCS (test code = 0.0 /100WBC'S 1065) PLATELET COUNT (test code = 270 K/UL 1015) ABSOLUTE NEUTROPHILS (test code 3.67 K/UL = 1066) ABSOLUTE LYMPHOCYTES (test code 2.59 K/UL = 1067) ABSOLUTE MONOCYTES (test code = 0.36 K/UL 1068) ABSOLUTE EOSINOPHILS (test code 0.08 K/UL = 1040) ABSOLUTE BASOPHILS (test code = 0.02 K/UL 1069) ABS IMMATURE GRANULOCYTES (test 0.02 K/UL code = 1020) ABS NUCLEATED RBCS (test code = 0.00 K/UL 44326) CBC W/AUTO [id number] 00:00:00 Test Item Value Reference Range Interpretation Comments WBC (test code = 1001) 6.7 K/UL RBC (test code = 1002) 4.11 M/UL HEMOGLOBIN (test code = 1003) 12.6 G/DL HEMATOCRIT (test code = 1004) 36.4 % MCV (test code = 1005) 88.6 fL MCH (test code = 1006) 30.7 PG MCHC (test code = 1007) 34.6 G/DL RDW (test code = 1038) 12.2 % NEUTROPHILS (test code = 1008) 54.5 % LYMPHOCYTES (test code = 1010) 38.4 % MONOCYTES (test code = 1011) 5.3 % EOSINOPHILS (test code = 1012) 1.2 % BASOPHILS (test code = 1013) 0.3 % IMMATURE GRANULOCYTES (test 0.3 % code = 1036) NUCLEATED RBCS (test code = 0.0 /100WBC'S 1065) PLATELET COUNT (test code = 270 K/UL 1015) ABSOLUTE NEUTROPHILS (test code 3.67 K/UL = 1066) ABSOLUTE LYMPHOCYTES (test code 2.59 K/UL = 1067) ABSOLUTE MONOCYTES (test code = 0.36 K/UL 1068) ABSOLUTE EOSINOPHILS (test code 0.08 K/UL = 1040) ABSOLUTE BASOPHILS (test code = 0.02 K/UL 1069) ABS IMMATURE GRANULOCYTES (test 0.02 K/UL code = 1020) ABS NUCLEATED RBCS (test code = 0.00 K/UL 08841) [id number] 00:00:00 Test Item Value Reference Range Interpretation Comments TSH, THIRD GENERATION (test code 2.030 UIU/ML = 2821) [id number] 00:00:00 Test Item Value Reference Range Interpretation Comments TSH, THIRD GENERATION (test code 2.030 UIU/ML = 2821) COMPREHENSIVE METABOLIC [id number] 00:00:00 Test Item Value Reference Range Interpretation Comments GLUCOSE (test code = 2217) 111 MG/DL BUN (test code = 2208) 26 MG/DL CREATININE (test code = 2214) 0.55 MG/DL eGFR AMER. (test code 119 ML/MIN/1.73 = 58885) eGFR NON- AMER. (test 103 ML/MIN/1.73 code = 11167) CALC BUN/CREAT (test code = 47 RATIO 2235) SODIUM (test code = 2231) 142 MEQ/L POTASSIUM (test code = 2228) 4.3 MEQ/L CHLORIDE (test code = 2215) 106 MEQ/L CARBON DIOXIDE (test code = 27 MEQ/L 2205) CALCIUM (test code = 2209) 9.4 MG/DL PROTEIN, TOTAL (test code = 7.3 G/DL 2228) ALBUMIN (test code = 2201) 4.2 G/DL CALC GLOBULIN (test code = 3.1 G/DL 2240) CALC A/G RATIO (test code = 1.4 RATIO 2234) BILIRUBIN, TOTAL (test code = 0.3 MG/DL 2206) ALKALINE PHOSPHATASE (test 86 U/L code = 2204) AST (test code = 2218) 13 U/L ALT (test code = 2219) 13 U/L COMPREHENSIVE METABOLIC [id number] 00:00:00 Test Item Value Reference Range Interpretation Comments GLUCOSE (test code = 2217) 111 MG/DL BUN (test code = 2208) 26 MG/DL CREATININE (test code = 2214) 0.55 MG/DL eGFR AMER. (test code 119 ML/MIN/1.73 = 83405) eGFR NON- AMER. (test 103 ML/MIN/1.73 code = 26330) CALC BUN/CREAT (test code = 47 RATIO 2235) SODIUM (test code = 2231) 142 MEQ/L POTASSIUM (test code = 2228) 4.3 MEQ/L CHLORIDE (test code = 2215) 106 MEQ/L CARBON DIOXIDE (test code = 27 MEQ/L 220) CALCIUM (test code = 2209) 9.4 MG/DL PROTEIN, TOTAL (test code = 7.3 G/DL 2228) ALBUMIN (test code = 2201) 4.2 G/DL CALC GLOBULIN (test code = 3.1 G/DL 2240) CALC A/G RATIO (test code = 1.4 RATIO 4) BILIRUBIN, TOTAL (test code = 0.3 MG/DL 2206) ALKALINE PHOSPHATASE (test 86 U/L code = 2204) AST (test code = 2218) 13 U/L ALT (test code = 2219) 13 U/L CBC W/AUTO [id number] 00:00:00 Test Item Value Reference Range Interpretation Comments WBC (test code = 1001) 6.7 K/UL RBC (test code = 1002) 4.11 M/UL HEMOGLOBIN (test code = 1003) 12.6 G/DL HEMATOCRIT (test code = 1004) 36.4 % MCV (test code = 1005) 88.6 fL MCH (test code = 1006) 30.7 PG MCHC (test code = 1007) 34.6 G/DL RDW (test code = 1038) 12.2 % NEUTROPHILS (test code = 1008) 54.5 % LYMPHOCYTES (test code = 1010) 38.4 % MONOCYTES (test code = 1011) 5.3 % EOSINOPHILS (test code = 1012) 1.2 % BASOPHILS (test code = 1013) 0.3 % IMMATURE GRANULOCYTES (test 0.3 % code = 1036) NUCLEATED RBCS (test code = 0.0 /100WBC'S 1065) PLATELET COUNT (test code = 270 K/UL 1015) ABSOLUTE NEUTROPHILS (test code 3.67 K/UL = 1066) ABSOLUTE LYMPHOCYTES (test code 2.59 K/UL = 1067) ABSOLUTE MONOCYTES (test code = 0.36 K/UL 1068) ABSOLUTE EOSINOPHILS (test code 0.08 K/UL = 1040) ABSOLUTE BASOPHILS (test code = 0.02 K/UL 1069) ABS IMMATURE GRANULOCYTES (test 0.02 K/UL code = 1020) ABS NUCLEATED RBCS (test code = 0.00 K/UL 74155) CBC W/AUTO [id number] 00:00:00 Test Item Value Reference Range Interpretation Comments WBC (test code = 1001) 6.7 K/UL RBC (test code = 1002) 4.11 M/UL HEMOGLOBIN (test code = 1003) 12.6 G/DL HEMATOCRIT (test code = 1004) 36.4 % MCV (test code = 1005) 88.6 fL MCH (test code = 1006) 30.7 PG MCHC (test code = 1007) 34.6 G/DL RDW (test code = 1038) 12.2 % NEUTROPHILS (test code = 1008) 54.5 % LYMPHOCYTES (test code = 1010) 38.4 % MONOCYTES (test code = 1011) 5.3 % EOSINOPHILS (test code = 1012) 1.2 % BASOPHILS (test code = 1013) 0.3 % IMMATURE GRANULOCYTES (test 0.3 % code = 1036) NUCLEATED RBCS (test code = 0.0 /100WBC'S 1065) PLATELET COUNT (test code = 270 K/UL 1015) ABSOLUTE NEUTROPHILS (test code 3.67 K/UL = 1066) ABSOLUTE LYMPHOCYTES (test code 2.59 K/UL = 1067) ABSOLUTE MONOCYTES (test code = 0.36 K/UL 1068) ABSOLUTE EOSINOPHILS (test code 0.08 K/UL = 1040) ABSOLUTE BASOPHILS (test code = 0.02 K/UL 1069) ABS IMMATURE GRANULOCYTES (test 0.02 K/UL code = 1020) ABS NUCLEATED RBCS (test code = 0.00 K/UL 09506) CBC W/AUTO [id number] 00:00:00 Test Item Value Reference Range Interpretation Comments WBC (test code = 1001) 6.7 K/UL RBC (test code = 1002) 4.11 M/UL HEMOGLOBIN (test code = 1003) 12.6 G/DL HEMATOCRIT (test code = 1004) 36.4 % MCV (test code = 1005) 88.6 fL MCH (test code = 1006) 30.7 PG MCHC (test code = 1007) 34.6 G/DL RDW (test code = 1038) 12.2 % NEUTROPHILS (test code = 1008) 54.5 % LYMPHOCYTES (test code = 1010) 38.4 % MONOCYTES (test code = 1011) 5.3 % EOSINOPHILS (test code = 1012) 1.2 % BASOPHILS (test code = 1013) 0.3 % IMMATURE GRANULOCYTES (test 0.3 % code = 1036) NUCLEATED RBCS (test code = 0.0 /100WBC'S 1065) PLATELET COUNT (test code = 270 K/UL 1015) ABSOLUTE NEUTROPHILS (test code 3.67 K/UL = 1066) ABSOLUTE LYMPHOCYTES (test code 2.59 K/UL = 1067) ABSOLUTE MONOCYTES (test code = 0.36 K/UL 1068) ABSOLUTE EOSINOPHILS (test code 0.08 K/UL = 1040) ABSOLUTE BASOPHILS (test code = 0.02 K/UL 1069) ABS IMMATURE GRANULOCYTES (test 0.02 K/UL code = 1020) ABS NUCLEATED RBCS (test code = 0.00 K/UL 17064) [id number] 00:00:00 Test Item Value Reference Range Interpretation Comments TSH, THIRD GENERATION (test code 2.030 UIU/ML = 2821) [id number] 00:00:00 Test Item Value Reference Range Interpretation Comments TSH, THIRD GENERATION (test code 2.030 UIU/ML = 2821) [id number] 00:00:00 Test Item Value Reference Range Interpretation Comments TSH, THIRD GENERATION (test code 2.030 UIU/ML = 2821) COMPREHENSIVE METABOLIC [id number] 00:00:00 Test Item Value Reference Range Interpretation Comments GLUCOSE (test code = 2217) 111 MG/DL BUN (test code = 2208) 26 MG/DL CREATININE (test code = 2214) 0.55 MG/DL eGFR AMER. (test code 119 ML/MIN/1.73 = 30019) eGFR NON- AMER. (test 103 ML/MIN/1.73 code = 26707) CALC BUN/CREAT (test code = 47 RATIO 2235) SODIUM (test code = 2231) 142 MEQ/L POTASSIUM (test code = 2228) 4.3 MEQ/L CHLORIDE (test code = 2215) 106 MEQ/L CARBON DIOXIDE (test code = 27 MEQ/L 2206) CALCIUM (test code = 2209) 9.4 MG/DL PROTEIN, TOTAL (test code = 7.3 G/DL 2228) ALBUMIN (test code = 2201) 4.2 G/DL CALC GLOBULIN (test code = 3.1 G/DL 2240) CALC A/G RATIO (test code = 1.4 RATIO 2234) BILIRUBIN, TOTAL (test code = 0.3 MG/DL 2206) ALKALINE PHOSPHATASE (test 86 U/L code = 2204) AST (test code = 2218) 13 U/L ALT (test code = 2219) 13 U/L COMPREHENSIVE METABOLIC [id number] 00:00:00 Test Item Value Reference Range Interpretation Comments GLUCOSE (test code = 2217) 111 MG/DL BUN (test code = 2208) 26 MG/DL CREATININE (test code = 2214) 0.55 MG/DL eGFR AMER. (test code 119 ML/MIN/1.73 = 47134) eGFR NON- AMER. (test 103 ML/MIN/1.73 code = 94128) CALC BUN/CREAT (test code = 47 RATIO 2235) SODIUM (test code = 2231) 142 MEQ/L POTASSIUM (test code = 2228) 4.3 MEQ/L CHLORIDE (test code = 2215) 106 MEQ/L CARBON DIOXIDE (test code = 27 MEQ/L 220) CALCIUM (test code = 2209) 9.4 MG/DL PROTEIN, TOTAL (test code = 7.3 G/DL 222) ALBUMIN (test code = 2201) 4.2 G/DL CALC GLOBULIN (test code = 3.1 G/DL 2240) CALC A/G RATIO (test code = 1.4 RATIO 2234) BILIRUBIN, TOTAL (test code = 0.3 MG/DL 2206) ALKALINE PHOSPHATASE (test 86 U/L code = 2204) AST (test code = 2218) 13 U/L ALT (test code = 2219) 13 U/L CBC W/AUTO [id number] 00:00:00 Test Item Value Reference Range Interpretation Comments WBC (test code = 1001) 6.7 K/UL RBC (test code = 1002) 4.11 M/UL HEMOGLOBIN (test code = 1003) 12.6 G/DL HEMATOCRIT (test code = 1004) 36.4 % MCV (test code = 1005) 88.6 fL MCH (test code = 1006) 30.7 PG MCHC (test code = 1007) 34.6 G/DL RDW (test code = 1038) 12.2 % NEUTROPHILS (test code = 1008) 54.5 % LYMPHOCYTES (test code = 1010) 38.4 % MONOCYTES (test code = 1011) 5.3 % EOSINOPHILS (test code = 1012) 1.2 % BASOPHILS (test code = 1013) 0.3 % IMMATURE GRANULOCYTES (test 0.3 % code = 1036) NUCLEATED RBCS (test code = 0.0 /100WBC'S 1065) PLATELET COUNT (test code = 270 K/UL 1015) ABSOLUTE NEUTROPHILS (test code 3.67 K/UL = 1066) ABSOLUTE LYMPHOCYTES (test code 2.59 K/UL = 1067) ABSOLUTE MONOCYTES (test code = 0.36 K/UL 1068) ABSOLUTE EOSINOPHILS (test code 0.08 K/UL = 1040) ABSOLUTE BASOPHILS (test code = 0.02 K/UL 1069) ABS IMMATURE GRANULOCYTES (test 0.02 K/UL code = 1020) ABS NUCLEATED RBCS (test code = 0.00 K/UL 55947) CBC W/AUTO [id number] 00:00:00 Test Item Value Reference Range Interpretation Comments WBC (test code = 1001) 6.7 K/UL RBC (test code = 1002) 4.11 M/UL HEMOGLOBIN (test code = 1003) 12.6 G/DL HEMATOCRIT (test code = 1004) 36.4 % MCV (test code = 1005) 88.6 fL MCH (test code = 1006) 30.7 PG MCHC (test code = 1007) 34.6 G/DL RDW (test code = 1038) 12.2 % NEUTROPHILS (test code = 1008) 54.5 % LYMPHOCYTES (test code = 1010) 38.4 % MONOCYTES (test code = 1011) 5.3 % EOSINOPHILS (test code = 1012) 1.2 % BASOPHILS (test code = 1013) 0.3 % IMMATURE GRANULOCYTES (test 0.3 % code = 1036) NUCLEATED RBCS (test code = 0.0 /100WBC'S 1065) PLATELET COUNT (test code = 270 K/UL 1015) ABSOLUTE NEUTROPHILS (test code 3.67 K/UL = 1066) ABSOLUTE LYMPHOCYTES (test code 2.59 K/UL = 1067) ABSOLUTE MONOCYTES (test code = 0.36 K/UL 1068) ABSOLUTE EOSINOPHILS (test code 0.08 K/UL = 1040) ABSOLUTE BASOPHILS (test code = 0.02 K/UL 1069) ABS IMMATURE GRANULOCYTES (test 0.02 K/UL code = 1020) ABS NUCLEATED RBCS (test code = 0.00 K/UL 96300) CBC W/AUTO [id number] 00:00:00 Test Item Value Reference Range Interpretation Comments WBC (test code = 1001) 6.7 K/UL RBC (test code = 1002) 4.11 M/UL HEMOGLOBIN (test code = 1003) 12.6 G/DL HEMATOCRIT (test code = 1004) 36.4 % MCV (test code = 1005) 88.6 fL MCH (test code = 1006) 30.7 PG MCHC (test code = 1007) 34.6 G/DL RDW (test code = 1038) 12.2 % NEUTROPHILS (test code = 1008) 54.5 % LYMPHOCYTES (test code = 1010) 38.4 % MONOCYTES (test code = 1011) 5.3 % EOSINOPHILS (test code = 1012) 1.2 % BASOPHILS (test code = 1013) 0.3 % IMMATURE GRANULOCYTES (test 0.3 % code = 1036) NUCLEATED RBCS (test code = 0.0 /100WBC'S 1065) PLATELET COUNT (test code = 270 K/UL 1015) ABSOLUTE NEUTROPHILS (test code 3.67 K/UL = 1066) ABSOLUTE LYMPHOCYTES (test code 2.59 K/UL = 1067) ABSOLUTE MONOCYTES (test code = 0.36 K/UL 1068) ABSOLUTE EOSINOPHILS (test code 0.08 K/UL = 1040) ABSOLUTE BASOPHILS (test code = 0.02 K/UL 1069) ABS IMMATURE GRANULOCYTES (test 0.02 K/UL code = 1020) ABS NUCLEATED RBCS (test code = 0.00 K/UL 12168) [id number] 00:00:00 Test Item Value Reference Range Interpretation Comments TSH, THIRD GENERATION (test code 2.030 UIU/ML = 2821) [id number] 00:00:00 Test Item Value Reference Range Interpretation Comments TSH, THIRD GENERATION (test code 2.030 UIU/ML = 2821) [id number] 00:00:00 Test Item Value Reference Range Interpretation Comments TSH, THIRD GENERATION (test code 2.030 UIU/ML = 2821) COMPREHENSIVE METABOLIC [id number] 00:00:00 Test Item Value Reference Range Interpretation Comments GLUCOSE (test code = 2217) 111 MG/DL BUN (test code = 2208) 26 MG/DL CREATININE (test code = 2214) 0.55 MG/DL eGFR AMER. (test code 119 ML/MIN/1.73 = 30810) eGFR NON- AMER. (test 103 ML/MIN/1.73 code = 94474) CALC BUN/CREAT (test code = 47 RATIO 2235) SODIUM (test code = 2231) 142 MEQ/L POTASSIUM (test code = 2228) 4.3 MEQ/L CHLORIDE (test code = 2215) 106 MEQ/L CARBON DIOXIDE (test code = 27 MEQ/L 2206) CALCIUM (test code = 2209) 9.4 MG/DL PROTEIN, TOTAL (test code = 7.3 G/DL 2228) ALBUMIN (test code = 2201) 4.2 G/DL CALC GLOBULIN (test code = 3.1 G/DL 2240) CALC A/G RATIO (test code = 1.4 RATIO 2234) BILIRUBIN, TOTAL (test code = 0.3 MG/DL 2206) ALKALINE PHOSPHATASE (test 86 U/L code = 2204) AST (test code = 2218) 13 U/L ALT (test code = 2219) 13 U/L COMPREHENSIVE METABOLIC [id number] 00:00:00 Test Item Value Reference Range Interpretation Comments GLUCOSE (test code = 2217) 111 MG/DL BUN (test code = 2208) 26 MG/DL CREATININE (test code = 2214) 0.55 MG/DL eGFR AMER. (test code 119 ML/MIN/1.73 = 25434) eGFR NON- AMER. (test 103 ML/MIN/1.73 code = 00696) CALC BUN/CREAT (test code = 47 RATIO 2235) SODIUM (test code = 2231) 142 MEQ/L POTASSIUM (test code = 2228) 4.3 MEQ/L CHLORIDE (test code = 2215) 106 MEQ/L CARBON DIOXIDE (test code = 27 MEQ/L 2206) CALCIUM (test code = 2209) 9.4 MG/DL PROTEIN, TOTAL (test code = 7.3 G/DL 2228) ALBUMIN (test code = 2201) 4.2 G/DL CALC GLOBULIN (test code = 3.1 G/DL 2240) CALC A/G RATIO (test code = 1.4 RATIO 2234) BILIRUBIN, TOTAL (test code = 0.3 MG/DL 2206) ALKALINE PHOSPHATASE (test 86 U/L code = 2204) AST (test code = 2218) 13 U/L ALT (test code = 2219) 13 U/L CBC W/AUTO [id number] 00:00:00 Test Item Value Reference Range Interpretation Comments WBC (test code = 1001) 6.7 K/UL RBC (test code = 1002) 4.11 M/UL HEMOGLOBIN (test code = 1003) 12.6 G/DL HEMATOCRIT (test code = 1004) 36.4 % MCV (test code = 1005) 88.6 fL MCH (test code = 1006) 30.7 PG MCHC (test code = 1007) 34.6 G/DL RDW (test code = 1038) 12.2 % NEUTROPHILS (test code = 1008) 54.5 % LYMPHOCYTES (test code = 1010) 38.4 % MONOCYTES (test code = 1011) 5.3 % EOSINOPHILS (test code = 1012) 1.2 % BASOPHILS (test code = 1013) 0.3 % IMMATURE GRANULOCYTES (test 0.3 % code = 1036) NUCLEATED RBCS (test code = 0.0 /100WBC'S 1065) PLATELET COUNT (test code = 270 K/UL 1015) ABSOLUTE NEUTROPHILS (test code 3.67 K/UL = 1066) ABSOLUTE LYMPHOCYTES (test code 2.59 K/UL = 1067) ABSOLUTE MONOCYTES (test code = 0.36 K/UL 1068) ABSOLUTE EOSINOPHILS (test code 0.08 K/UL = 1040) ABSOLUTE BASOPHILS (test code = 0.02 K/UL 1069) ABS IMMATURE GRANULOCYTES (test 0.02 K/UL code = 1020) ABS NUCLEATED RBCS (test code = 0.00 K/UL 00329) CBC W/AUTO [id number] 00:00:00 Test Item Value Reference Range Interpretation Comments WBC (test code = 1001) 6.7 K/UL RBC (test code = 1002) 4.11 M/UL HEMOGLOBIN (test code = 1003) 12.6 G/DL HEMATOCRIT (test code = 1004) 36.4 % MCV (test code = 1005) 88.6 fL MCH (test code = 1006) 30.7 PG MCHC (test code = 1007) 34.6 G/DL RDW (test code = 1038) 12.2 % NEUTROPHILS (test code = 1008) 54.5 % LYMPHOCYTES (test code = 1010) 38.4 % MONOCYTES (test code = 1011) 5.3 % EOSINOPHILS (test code = 1012) 1.2 % BASOPHILS (test code = 1013) 0.3 % IMMATURE GRANULOCYTES (test 0.3 % code = 1036) NUCLEATED RBCS (test code = 0.0 /100WBC'S 1065) PLATELET COUNT (test code = 270 K/UL 1015) ABSOLUTE NEUTROPHILS (test code 3.67 K/UL = 1066) ABSOLUTE LYMPHOCYTES (test code 2.59 K/UL = 1067) ABSOLUTE MONOCYTES (test code = 0.36 K/UL 1068) ABSOLUTE EOSINOPHILS (test code 0.08 K/UL = 1040) ABSOLUTE BASOPHILS (test code = 0.02 K/UL 1069) ABS IMMATURE GRANULOCYTES (test 0.02 K/UL code = 1020) ABS NUCLEATED RBCS (test code = 0.00 K/UL 45134) CBC W/AUTO [id number] 00:00:00 Test Item Value Reference Range Interpretation Comments WBC (test code = 1001) 6.7 K/UL RBC (test code = 1002) 4.11 M/UL HEMOGLOBIN (test code = 1003) 12.6 G/DL HEMATOCRIT (test code = 1004) 36.4 % MCV (test code = 1005) 88.6 fL MCH (test code = 1006) 30.7 PG MCHC (test code = 1007) 34.6 G/DL RDW (test code = 1038) 12.2 % NEUTROPHILS (test code = 1008) 54.5 % LYMPHOCYTES (test code = 1010) 38.4 % MONOCYTES (test code = 1011) 5.3 % EOSINOPHILS (test code = 1012) 1.2 % BASOPHILS (test code = 1013) 0.3 % IMMATURE GRANULOCYTES (test 0.3 % code = 1036) NUCLEATED RBCS (test code = 0.0 /100WBC'S 1065) PLATELET COUNT (test code = 270 K/UL 1015) ABSOLUTE NEUTROPHILS (test code 3.67 K/UL = 1066) ABSOLUTE LYMPHOCYTES (test code 2.59 K/UL = 1067) ABSOLUTE MONOCYTES (test code = 0.36 K/UL 1068) ABSOLUTE EOSINOPHILS (test code 0.08 K/UL = 1040) ABSOLUTE BASOPHILS (test code = 0.02 K/UL 1069) ABS IMMATURE GRANULOCYTES (test 0.02 K/UL code = 1020) ABS NUCLEATED RBCS (test code = 0.00 K/UL 84996) [id number] 00:00:00 Test Item Value Reference Range Interpretation Comments TSH, THIRD GENERATION (test code 2.030 UIU/ML = 2821) [id number] 00:00:00 Test Item Value Reference Range Interpretation Comments TSH, THIRD GENERATION (test code 2.030 UIU/ML = 2821) [id number] 00:00:00 Test Item Value Reference Range Interpretation Comments TSH, THIRD GENERATION (test code 2.030 UIU/ML = 2821) HEMOGLOBIN [id number] 00:00:00 Test Item Value Reference Range Interpretation Comments HEMOGLOBIN A1c (test code = 26257) 5.5 % HEMOGLOBIN [id number] 00:00:00 Test Item Value Reference Range Interpretation Comments HEMOGLOBIN A1c (test code = 56427) 5.5 % HEMOGLOBIN [id number] 00:00:00 Test Item Value Reference Range Interpretation Comments HEMOGLOBIN A1c (test code = 19600) 5.5 % COMPREHENSIVE METABOLIC [id number] 00:00:00 Test Item Value Reference Range Interpretation Comments GLUCOSE (test code = 2217) 90 MG/DL BUN (test code = 2208) 15 MG/DL CREATININE (test code = 2214) 0.64 MG/DL eGFR AMER. (test code 113 ML/MIN/1.73 = 06100) eGFR NON- AMER. (test 98 ML/MIN/1.73 code = 55163) CALC BUN/CREAT (test code = 23 RATIO 2235) SODIUM (test code = 2231) 144 MEQ/L POTASSIUM (test code = 2228) 4.6 MEQ/L CHLORIDE (test code = 2215) 107 MEQ/L CARBON DIOXIDE (test code = 25 MEQ/L 2205) CALCIUM (test code = 2209) 9.1 MG/DL PROTEIN, TOTAL (test code = 7.6 G/DL 2228) ALBUMIN (test code = 2201) 4.0 G/DL CALC GLOBULIN (test code = 3.6 G/DL 2239) CALC A/G RATIO (test code = 1.1 RATIO 2233) BILIRUBIN, TOTAL (test code = 0.2 MG/DL 2207) ALKALINE PHOSPHATASE (test 93 U/L code = 2204) AST (test code = 2218) 19 U/L ALT (test code = 2219) 11 U/L COMPREHENSIVE METABOLIC [id number] 00:00:00 Test Item Value Reference Range Interpretation Comments GLUCOSE (test code = 2217) 90 MG/DL BUN (test code = 2208) 15 MG/DL CREATININE (test code = 2214) 0.64 MG/DL eGFR AMER. (test code 113 ML/MIN/1.73 = 05964) eGFR NON- AMER. (test 98 ML/MIN/1.73 code = 54517) CALC BUN/CREAT (test code = 23 RATIO 2235) SODIUM (test code = 2231) 144 MEQ/L POTASSIUM (test code = 2228) 4.6 MEQ/L CHLORIDE (test code = 2215) 107 MEQ/L CARBON DIOXIDE (test code = 25 MEQ/L 220) CALCIUM (test code = 2209) 9.1 MG/DL PROTEIN, TOTAL (test code = 7.6 G/DL 2228) ALBUMIN (test code = 2201) 4.0 G/DL CALC GLOBULIN (test code = 3.6 G/DL 2240) CALC A/G RATIO (test code = 1.1 RATIO 2234) BILIRUBIN, TOTAL (test code = 0.2 MG/DL 2206) ALKALINE PHOSPHATASE (test 93 U/L code = 2204) AST (test code = 2218) 19 U/L ALT (test code = 2219) 11 U/L LIPID [id number] 00:00:00 Test Item Value Reference Range Interpretation Comments CHOLESTEROL (test code = 2210) 167 MG/DL TRIGLYCERIDES (test code = 2232) 167 MG/DL HDL CHOLESTEROL (test code = 2220) 54 MG/DL CALC LDL CHOL (test code = 2237) 86 MG/DL RISK RATIO LDL/HDL (test code = 1.59 RATIO 2238) LIPID [id number] 00:00:00 Test Item Value Reference Range Interpretation Comments CHOLESTEROL (test code = 2210) 167 MG/DL TRIGLYCERIDES (test code = 2232) 167 MG/DL HDL CHOLESTEROL (test code = 2220) 54 MG/DL CALC LDL CHOL (test code = 2237) 86 MG/DL RISK RATIO LDL/HDL (test code = 1.59 RATIO 2238) HEMOGLOBIN [id number] 00:00:00 Test Item Value Reference Range Interpretation Comments HEMOGLOBIN A1c (test code = 69715) 5.5 % HEMOGLOBIN [id number] 00:00:00 Test Item Value Reference Range Interpretation Comments HEMOGLOBIN A1c (test code = 17157) 5.5 % COMPREHENSIVE METABOLIC [id number] 00:00:00 Test Item Value Reference Range Interpretation Comments GLUCOSE (test code = 2217) 90 MG/DL BUN (test code = 2208) 15 MG/DL CREATININE (test code = 2214) 0.64 MG/DL eGFR AMER. (test code 113 ML/MIN/1.73 = 38938) eGFR NON- AMER. (test 98 ML/MIN/1.73 code = 69321) CALC BUN/CREAT (test code = 23 RATIO 2235) SODIUM (test code = 2231) 144 MEQ/L POTASSIUM (test code = 2228) 4.6 MEQ/L CHLORIDE (test code = 2215) 107 MEQ/L CARBON DIOXIDE (test code = 25 MEQ/L 2205) CALCIUM (test code = 2209) 9.1 MG/DL PROTEIN, TOTAL (test code = 7.6 G/DL 2228) ALBUMIN (test code = 2201) 4.0 G/DL CALC GLOBULIN (test code = 3.6 G/DL 2240) CALC A/G RATIO (test code = 1.1 RATIO 2234) BILIRUBIN, TOTAL (test code = 0.2 MG/DL 2206) ALKALINE PHOSPHATASE (test 93 U/L code = 2204) AST (test code = 2218) 19 U/L ALT (test code = 2219) 11 U/L LIPID [id number] 00:00:00 Test Item Value Reference Range Interpretation Comments CHOLESTEROL (test code = 2210) 167 MG/DL TRIGLYCERIDES (test code = 2232) 167 MG/DL HDL CHOLESTEROL (test code = 2220) 54 MG/DL CALC LDL CHOL (test code = 2237) 86 MG/DL RISK RATIO LDL/HDL (test code = 1.59 RATIO 2238) HEMOGLOBIN [id number] 00:00:00 Test Item Value Reference Range Interpretation Comments HEMOGLOBIN A1c (test code = 84045) 5.5 % HEMOGLOBIN [id number] 00:00:00 Test Item Value Reference Range Interpretation Comments HEMOGLOBIN A1c (test code = 23353) 5.5 % HEMOGLOBIN [id number] 00:00:00 Test Item Value Reference Range Interpretation Comments HEMOGLOBIN A1c (test code = 48469) 5.5 % COMPREHENSIVE METABOLIC [id number] 00:00:00 Test Item Value Reference Range Interpretation Comments GLUCOSE (test code = 2217) 90 MG/DL BUN (test code = 2208) 15 MG/DL CREATININE (test code = 2214) 0.64 MG/DL eGFR AMER. (test code 113 ML/MIN/1.73 = 20294) eGFR NON- AMER. (test 98 ML/MIN/1.73 code = 31354) CALC BUN/CREAT (test code = 23 RATIO 2235) SODIUM (test code = 2231) 144 MEQ/L POTASSIUM (test code = 2228) 4.6 MEQ/L CHLORIDE (test code = 2215) 107 MEQ/L CARBON DIOXIDE (test code = 25 MEQ/L 2205) CALCIUM (test code = 2209) 9.1 MG/DL PROTEIN, TOTAL (test code = 7.6 G/DL 2228) ALBUMIN (test code = 2201) 4.0 G/DL CALC GLOBULIN (test code = 3.6 G/DL 0) CALC A/G RATIO (test code = 1.1 RATIO 4) BILIRUBIN, TOTAL (test code = 0.2 MG/DL 2206) ALKALINE PHOSPHATASE (test 93 U/L code = 2204) AST (test code = 2218) 19 U/L ALT (test code = 2219) 11 U/L COMPREHENSIVE METABOLIC [id number] 00:00:00 Test Item Value Reference Range Interpretation Comments GLUCOSE (test code = 2217) 90 MG/DL BUN (test code = 2208) 15 MG/DL CREATININE (test code = 2214) 0.64 MG/DL eGFR AMER. (test code 113 ML/MIN/1.73 = 96036) eGFR NON- AMER. (test 98 ML/MIN/1.73 code = 84566) CALC BUN/CREAT (test code = 23 RATIO 2235) SODIUM (test code = 2231) 144 MEQ/L POTASSIUM (test code = 2228) 4.6 MEQ/L CHLORIDE (test code = 2215) 107 MEQ/L CARBON DIOXIDE (test code = 25 MEQ/L 2205) CALCIUM (test code = 2209) 9.1 MG/DL PROTEIN, TOTAL (test code = 7.6 G/DL 2228) ALBUMIN (test code = 2201) 4.0 G/DL CALC GLOBULIN (test code = 3.6 G/DL 2239) CALC A/G RATIO (test code = 1.1 RATIO 2234) BILIRUBIN, TOTAL (test code = 0.2 MG/DL 2206) ALKALINE PHOSPHATASE (test 93 U/L code = 2204) AST (test code = 2218) 19 U/L ALT (test code = 2219) 11 U/L LIPID [id number] 00:00:00 Test Item Value Reference Range Interpretation Comments CHOLESTEROL (test code = 2210) 167 MG/DL TRIGLYCERIDES (test code = 2232) 167 MG/DL HDL CHOLESTEROL (test code = 2220) 54 MG/DL CALC LDL CHOL (test code = 2237) 86 MG/DL RISK RATIO LDL/HDL (test code = 1.59 RATIO 2238) LIPID [id number] 00:00:00 Test Item Value Reference Range Interpretation Comments CHOLESTEROL (test code = 2210) 167 MG/DL TRIGLYCERIDES (test code = 2232) 167 MG/DL HDL CHOLESTEROL (test code = 2220) 54 MG/DL CALC LDL CHOL (test code = 2237) 86 MG/DL RISK RATIO LDL/HDL (test code = 1.59 RATIO 2238) HEMOGLOBIN [id number] 00:00:00 Test Item Value Reference Range Interpretation Comments HEMOGLOBIN A1c (test code = 26197) 5.5 % HEMOGLOBIN [id number] 00:00:00 Test Item Value Reference Range Interpretation Comments HEMOGLOBIN A1c (test code = 43619) 5.5 % HEMOGLOBIN [id number] 00:00:00 Test Item Value Reference Range Interpretation Comments HEMOGLOBIN A1c (test code = 37486) 5.5 % COMPREHENSIVE METABOLIC [id number] 00:00:00 Test Item Value Reference Range Interpretation Comments GLUCOSE (test code = 2217) 90 MG/DL BUN (test code = 2208) 15 MG/DL CREATININE (test code = 2214) 0.64 MG/DL eGFR AMER. (test code 113 ML/MIN/1.73 = 50370) eGFR NON- AMER. (test 98 ML/MIN/1.73 code = 66792) CALC BUN/CREAT (test code = 23 RATIO 2235) SODIUM (test code = 2231) 144 MEQ/L POTASSIUM (test code = 2228) 4.6 MEQ/L CHLORIDE (test code = 2215) 107 MEQ/L CARBON DIOXIDE (test code = 25 MEQ/L 2206) CALCIUM (test code = 2209) 9.1 MG/DL PROTEIN, TOTAL (test code = 7.6 G/DL 222) ALBUMIN (test code = 2201) 4.0 G/DL CALC GLOBULIN (test code = 3.6 G/DL 2240) CALC A/G RATIO (test code = 1.1 RATIO 2234) BILIRUBIN, TOTAL (test code = 0.2 MG/DL 2206) ALKALINE PHOSPHATASE (test 93 U/L code = 2204) AST (test code = 2218) 19 U/L ALT (test code = 2219) 11 U/L COMPREHENSIVE METABOLIC [id number] 00:00:00 Test Item Value Reference Range Interpretation Comments GLUCOSE (test code = 2217) 90 MG/DL BUN (test code = 2208) 15 MG/DL CREATININE (test code = 2214) 0.64 MG/DL eGFR AMER. (test code 113 ML/MIN/1.73 = 64345) eGFR NON- AMER. (test 98 ML/MIN/1.73 code = 95451) CALC BUN/CREAT (test code = 23 RATIO 2235) SODIUM (test code = 2231) 144 MEQ/L POTASSIUM (test code = 2228) 4.6 MEQ/L CHLORIDE (test code = 2215) 107 MEQ/L CARBON DIOXIDE (test code = 25 MEQ/L 220) CALCIUM (test code = 2209) 9.1 MG/DL PROTEIN, TOTAL (test code = 7.6 G/DL 2228) ALBUMIN (test code = 2201) 4.0 G/DL CALC GLOBULIN (test code = 3.6 G/DL 2240) CALC A/G RATIO (test code = 1.1 RATIO 2234) BILIRUBIN, TOTAL (test code = 0.2 MG/DL 2206) ALKALINE PHOSPHATASE (test 93 U/L code = 2204) AST (test code = 2218) 19 U/L ALT (test code = 2219) 11 U/L LIPID [id number] 00:00:00 Test Item Value Reference Range Interpretation Comments CHOLESTEROL (test code = 2210) 167 MG/DL TRIGLYCERIDES (test code = 2232) 167 MG/DL HDL CHOLESTEROL (test code = 2220) 54 MG/DL CALC LDL CHOL (test code = 2237) 86 MG/DL RISK RATIO LDL/HDL (test code = 1.59 RATIO 2238) LIPID [id number] 00:00:00 Test Item Value Reference Range Interpretation Comments CHOLESTEROL (test code = 2210) 167 MG/DL TRIGLYCERIDES (test code = 2232) 167 MG/DL HDL CHOLESTEROL (test code = 2220) 54 MG/DL CALC LDL CHOL (test code = 2237) 86 MG/DL RISK RATIO LDL/HDL (test code = 1.59 RATIO 2238) HEMOGLOBIN [id number] 00:00:00 Test Item Value Reference Range Interpretation Comments HEMOGLOBIN A1c (test code = 13555) 5.5 % HEMOGLOBIN [id number] 00:00:00 Test Item Value Reference Range Interpretation Comments HEMOGLOBIN A1c (test code = 56456) 5.5 % HEMOGLOBIN [id number] 00:00:00 Test Item Value Reference Range Interpretation Comments HEMOGLOBIN A1c (test code = 37847) 5.5 % COMPREHENSIVE METABOLIC [id number] 00:00:00 Test Item Value Reference Range Interpretation Comments GLUCOSE (test code = 2217) 90 MG/DL BUN (test code = 2208) 15 MG/DL CREATININE (test code = 2214) 0.64 MG/DL eGFR AMER. (test code 113 ML/MIN/1.73 = 02895) eGFR NON- AMER. (test 98 ML/MIN/1.73 code = 74216) CALC BUN/CREAT (test code = 23 RATIO 2235) SODIUM (test code = 2231) 144 MEQ/L POTASSIUM (test code = 2228) 4.6 MEQ/L CHLORIDE (test code = 2215) 107 MEQ/L CARBON DIOXIDE (test code = 25 MEQ/L 2205) CALCIUM (test code = 2209) 9.1 MG/DL PROTEIN, TOTAL (test code = 7.6 G/DL 2228) ALBUMIN (test code = 220) 4.0 G/DL CALC GLOBULIN (test code = 3.6 G/DL 2240) CALC A/G RATIO (test code = 1.1 RATIO 2234) BILIRUBIN, TOTAL (test code = 0.2 MG/DL 2207) ALKALINE PHOSPHATASE (test 93 U/L code = 2204) AST (test code = 2218) 19 U/L ALT (test code = 2219) 11 U/L COMPREHENSIVE METABOLIC [id number] 00:00:00 Test Item Value Reference Range Interpretation Comments GLUCOSE (test code = 2217) 90 MG/DL BUN (test code = 2208) 15 MG/DL CREATININE (test code = 2214) 0.64 MG/DL eGFR AMER. (test code 113 ML/MIN/1.73 = 31962) eGFR NON- AMER. (test 98 ML/MIN/1.73 code = 03247) CALC BUN/CREAT (test code = 23 RATIO 2235) SODIUM (test code = 2231) 144 MEQ/L POTASSIUM (test code = 2228) 4.6 MEQ/L CHLORIDE (test code = 2215) 107 MEQ/L CARBON DIOXIDE (test code = 25 MEQ/L 2205) CALCIUM (test code = 2209) 9.1 MG/DL PROTEIN, TOTAL (test code = 7.6 G/DL 2228) ALBUMIN (test code = 2201) 4.0 G/DL CALC GLOBULIN (test code = 3.6 G/DL 2240) CALC A/G RATIO (test code = 1.1 RATIO 2234) BILIRUBIN, TOTAL (test code = 0.2 MG/DL 2206) ALKALINE PHOSPHATASE (test 93 U/L code = 2204) AST (test code = 2218) 19 U/L ALT (test code = 2219) 11 U/L LIPID [id number] 00:00:00 Test Item Value Reference Range Interpretation Comments CHOLESTEROL (test code = 2210) 167 MG/DL TRIGLYCERIDES (test code = 2232) 167 MG/DL HDL CHOLESTEROL (test code = 2220) 54 MG/DL CALC LDL CHOL (test code = 2237) 86 MG/DL RISK RATIO LDL/HDL (test code = 1.59 RATIO 2238) LIPID [id number] 00:00:00 Test Item Value Reference Range Interpretation Comments CHOLESTEROL (test code = 2210) 167 MG/DL TRIGLYCERIDES (test code = 2232) 167 MG/DL HDL CHOLESTEROL (test code = 2220) 54 MG/DL CALC LDL CHOL (test code = 2237) 86 MG/DL RISK RATIO LDL/HDL (test code = 1.59 RATIO 2238) SARS-CoV-2 (COVID-19) by RT-PCR (HIGH RISK)2020-02-03 00:00:00 Test Item Value Reference Range Interpretation Comments SARS-CoV-2 INTERPRETATION Negative (test code = 97762) SOURCE (test code = 99034) Nasal_Swab_in_VTM__ UTM SARS-CoV-2 (COVID-19) by RT-PCR (HIGH RISK)2020-02-03 00:00:00 Test Item Value Reference Range Interpretation Comments SARS-CoV-2 INTERPRETATION Negative (test code = 31282) SOURCE (test code = 40827) Nasal_Swab_in_VTM__ UTM SARS-CoV-2 (COVID-19) by RT-PCR (HIGH RISK)2020-02-03 00:00:00 Test Item Value Reference Range Interpretation Comments SARS-CoV-2 INTERPRETATION Negative (test code = 36869) SOURCE (test code = 19580) Nasal_Swab_in_VTM__ UTM SARS-CoV-2 (COVID-19) by RT-PCR (HIGH RISK)2020-02-03 00:00:00 Test Item Value Reference Range Interpretation Comments SARS-CoV-2 INTERPRETATION Negative (test code = 50647) SOURCE (test code = 56676) Nasal_Swab_in_VTM__ UTM SARS-CoV-2 (COVID-19) by RT-PCR (HIGH RISK)2020-02-03 00:00:00 Test Item Value Reference Range Interpretation Comments SARS-CoV-2 INTERPRETATION Negative (test code = 39688) SOURCE (test code = 52519) Nasal_Swab_in_VTM__ UTM BREAST ULTRASOUND CORE BIOPSY [id number] 09:37:50- BREAST ULTRASOUND CORE BIOPSY RIGHTULTRASOUND GUIDED BIOPSY RIGHT BREAST WITH MARKING DEVICE INSERTED AND POST DIGITAL MAMMOGRAPHIC AND ULTRASOUND IMAGIN09/09/2018CLINICAL: Biopsy The 1.7 cm complexcystic and solid mass in the right breast [...] to exam dated 08/25/2018 ultrasound - [facility]. An ultrasound guided biopsy using real- time ultrasound was performed for the concerning mass located in the right breast at10 o'clock, anterior depth, 3 cm from the nipple. This was described on the previous ultrasound report. The skin was prepped in the usual manner. Local anesthetic was administered to the access site. A14 gauge biopsy needle was placed adjacent to the abnormality through an introducer device under ultrasound guidance. Once the needle was documented to be in the correct location, multiple specimens were obtained using a Nykaa biopsy device. A ribbon shaped clip was [...] OF ATYPIA OR MALIGNANCYThe finding is concordant withimaging. Surgical consultation is recommended for excision. Amado Eugene M.D. ,cc/:09/15/2018 09:37:50 Entry: - 09/16/2018 14:25:14copy to: Phil Martinez MD, ph: [phone],fax: [phone] Technologist: Saundra Ferreira, [facility]-RGletter sent: Surgical Consult [facility] NavigationDIAG MAMM RIGHT CAD [id number] 09:12:32 - DIAG MAMM RIGHT CAD DIGITALUNILATERAL RIGHT DIGITAL DIAGNOSTIC MAMMOGRAM WITH CAD - RIGHT BREAST POST-PROCEDURE IMAGING FOR MARKER PLACEMENT: 09/09/2018CLINICAL: Post clip placement right. Current mammographic images were evaluated by either a [employer] M-Vu or a [employer] Solutions[employer]er CAD (computer aideddetection system). Comparison is made to exam dated 09/09/2018 ultrasound biopsy - [facility]-. The tissue of the right breast is predominantly fatty. There is a marker clip in the appropriate position in the right breast. This marker clip placement is at biopsy site. IMPRESSION: POST PROCEDURE IMAGING FOR MARKER PLACEMENTThere was a successful marker clip placement in the right breast. Amado Roberto M.D. pl/:09/09/2018 09:12:32 copy to: Phil Martinez MD, ph: [phone], fax: [phone] Technologist: Yessenia ULRICH, [facility]PRES[facility] RANCHOMammogram BI-RADS: Post-procedure mammogram for marker placementBREAST ULTRASOUND [id number] 16:29:27- BREAST ULTRASOUND RIGHTULTRASOUND OF RIGHT BREAST AND RIGHT AXILLA: [...] 08/28/2018 11:09:58copy to: Phil Martinez MD, ph: [phone], fax: [phone] Technologist: Saundra Ferreira, [facility] ImagingPRES[facility]O RANCHOletter sent: BIRADS 4/5 Biopsy Ultrasound BI-RADS: 4c Suspicious abnormality - moderate concern but not classic for malignancyCULTURE, [id number] 00:00:00 Test Item Value Reference Range Interpretation Comments CULTURE, URINE (test SPECIMEN NUMBER: code = 03383) [id number] CULTURE, [id number] 00:00:00 Test Item Value Reference Range Interpretation Comments CULTURE, URINE (test SPECIMEN NUMBER: code = 28823) [id number] CULTURE, [id number] 00:00:00 Test Item Value Reference Range Interpretation Comments CULTURE, URINE (test SPECIMEN NUMBER: code = 54951) [id number] CULTURE, [id number] 00:00:00 Test Item Value Reference Range Interpretation Comments CULTURE, URINE (test SPECIMEN NUMBER: code = 55657) [id number] CULTURE, [id number] 00:00:00 Test Item Value Reference Range Interpretation Comments CULTURE, URINE (test SPECIMEN NUMBER: code = 51437) [id number] CULTURE, [id number] 00:00:00 Test Item Value Reference Range Interpretation Comments CULTURE, URINE (test SPECIMEN NUMBER: code = 96431) [id number] CULTURE, [id number] 00:00:00 Test Item Value Reference Range Interpretation Comments CULTURE, URINE (test SPECIMEN NUMBER: code = 95346) [id number] CULTURE, [id number] 00:00:00 Test Item Value Reference Range Interpretation Comments CULTURE, URINE (test SPECIMEN NUMBER: code = 13376) [id number] CULTURE, [id number] 00:00:00 Test Item Value Reference Range Interpretation Comments CULTURE, URINE (test SPECIMEN NUMBER: code = 04981) [id number] SCR MAMM BILATERAL ROB CAD [id number] 13:16:36 - SCR MAMM BILATERAL ROB CAD DIGITALBILATERAL DIGITAL SCREENING MAMMOGRAM 3D/2D WITH CAD: 05/29/2018 CLINICAL: Asymptomatic. Digital breast tomosynthesis was performed in addition to routine CC and MLOviews. Current mammographic images were evaluated by either a [employer] M-Vu or a [employer] ImageChecker CAD (computer aided detection system). Comparison is made to exam dated 11/08/2008 mammogram - [facility]. The tissue of both breasts is predominantly [...] finding in the left breast is noted. Anew benign-appearing mass is present in the right breast. Breast ultrasound is advised for further ev aluation.Anton Conway M.D. rb/:06/10/2018 13:16:36 copy to: Phil Martinez MD, ph: [phone], fax: [phone] Technologist: Ruthie Montoya MM, [facility] Mammographyletter sent: Additional Imaging Mammogram BI-RADS: 0 Indeterminate
[2022-03-31 03:34] LABS: Hematocrit 37.3 % (36.0-45.0); Lymphocytes % 26.2 % (15.3-44.8); MCV 91.4 fL (80-100); RBC Red Blood Cell Count 4.09 M/uL (3.86-4.86)
[2022-03-31] MEDS ORDERED: ACETAMINOPHEN 500 MG TAB ONE (03:36)
[2022-03-31 04:00] LABS: Albumin 3.4 g/dL (3.4-5.0); Bilirubin Total 0.3 mg/dL (0.2-1.0); Potassium 3.5 mmol/L (3.5-5.1); Protein, Total 8.1 g/dL (6.4-8.2); Troponin High Sensitivity 7.7 pg/mL (<58.9)
[2022-03-31 04:13] LABS: SARS-COV-2 RT PCR NEGATIVE (NEGATIVE)
--- NOTE | 2022-03-31 04:51 | ER ---
Nurse's Notes [facility] Name: Em Butler Age: 62 yrs Sex: Female : 1960 Arrival Date: 03/31/2022 Time: 03:02 Bed 7 Private MD: Diagnosis: Acute upper respiratory infection, unspecified Presentation: 03/31 03:18 Chief complaint: Patient states: she is having flu like symptoms since Friday with bb cough, sore-throat, runny nose, pain with respirations, eye pain and ear pain denies fever. Coronavirus screen: Client presents with at least one sign or symptom that may indicate coronavirus-19. Ebola Screen: No symptoms or risks identified at this time. Initial Sepsis Screen: Does the patient meet any 2 criteria? No. Patient's initial sepsis screen is negative. Does the patient have a suspected source of infection? No. Patient's initial sepsis screen is negative. Risk Assessment: Do you want to hurt yourself or someone else? Patient reports no desire to harm self or others. Onset of symptoms was March 29, 2022. 03:18 Method Of Arrival: Ambulatory bb 03:18 Acuity: ANNY 3 bb Historical: - Allergies: 03:20 No Known Allergies; bb - Home Meds: 03:20 Hydralazine Oral [Active]; Farxiga oral [Active]; Lisinopril Oral [Active]; Furosemide bb Oral [Active]; - PMHx: 03:20 Arthritis; GERD; Hypertension; Sleep Apnea; bb - Immunization history:: Client reports having NOT received the Covid vaccine. - Social history:: Smoking status: Patient denies any tobacco usage or history of. - Family history:: not pertinent. Screenin:15 Abuse screen: Denies threats or abuse. Nutritional screening: No deficits noted. jb4 Tuberculosis screening: No symptoms or risk factors identified. Fall Risk None identified. Assessment: 03:15 General: Appears in no apparent distress. comfortable, Behavior is calm, cooperative, jb4 appropriate for age. Pain: Complains of pain in chest Pain does not radiate. Pain currently is 5 out of 10 on a pain scale. Neuro: Level of Consciousness is awake, alert, obeys commands, Oriented to person, place, time, situation. Cardiovascular: Patient's skin is warm and dry. Respiratory: Airway is patent Trachea midline Respiratory effort is even, unlabored, Respiratory pattern is regular, symmetrical. GI: No signs and/or symptoms were reported involving the gastrointestinal system. : No signs and/or symptoms were reported regarding the genitourinary system. EENT: No signs and/or symptoms were reported regarding the EENT system. Derm: Skin is intact, Skin is pink, warm \T\ dry. Musculoskeletal: Circulation, motion, and sensation intact. Range of motion: intact in all extremities. 04:18 Reassessment: Patient appears in no apparent distress at this time. Patient and/or jb4 family updated on plan of care and expected duration. Pain level reassessed. Patient is alert, oriented x 3, equal unlabored respirations, skin warm/dry/pink. 04:57 Reassessment: Patient appears in no apparent distress at this time. Patient and/or jb4 family updated on plan of care and expected duration. Pain level reassessed. Patient is alert, oriented x 3, equal unlabored respirations, skin warm/dry/pink. Vital Signs: 03:18 BP 203 / 80; Pulse 105; Resp 20 S; Temp 99.5(O); Pulse Ox 96% on R/A; Weight 131.54 kg bb (R); Height 4 ft. 11 in. (149.86 cm) (R); Pain 5/10; 04:00 BP 164 / 71; Pulse 89; Resp 20; Pulse Ox 96% on R/A; jb4 03:18 Body Mass Index 58.57 (131.54 kg, 149.86 cm) ED Course: 03:02 Patient arrived in ED. bp1 03:07 Danny Velasquez MD is Attending Physician. rt 03:15 Patient has correct armband on for positive identification. Placed in gown. Bed in low jb4 position. Call light in reach. Side rails up X 1. Client placed on continuous cardiac and pulse oximetry monitoring. NIBP monitoring applied. monitor tech on. 03:16 Bobby Meier, EDDIE is Primary Nurse. jb4 03:20 Triage completed. bb 03:20 Arm band placed on Patient placed in an exam room, on a stretcher, on pulse oximetry. bb 03:45 Initial lab(s) drawn, by me, sent to lab. Inserted saline lock: 18 gauge in right jb4 antecubital area, using aseptic technique. Blood collected. 03:57 Chest Single View XRAY In Process Unspecified. EDMS 05:04 No provider procedures requiring assistance completed. IV discontinued, intact, jb4 bleeding controlled, No redness/swelling at site. Pressure dressing applied. Patient maintains SpO2 saturation greater than 95% on room air. Administered Medications: 03:45 Drug: Tylenol 1000 mg Route: PO; jb4 04:57 Follow up: Response: No adverse reaction jb4 Outcome: 04:50 Discharge ordered by . rt 05:05 Discharged to home ambulatory, with family. jb4 05:05 Condition: stable 05:05 Discharge instructions given to patient, Instructed on discharge instructions, follow up and referral plans. medication usage, Demonstrated understanding of instructions, follow-up care, medications, Prescriptions given X 1. 05:05 Patient left the ED. jb4 Signatures: Dispatcher [employer] EDMariangel Goins RN RN bb Bryson, James, RN RN jb4 Clari Mendez Ryan, MD MD rt Corrections: (The following items were deleted from the chart) 03:22 03:20 PSHx: Cholecystectomy; prachi velarde 03:22 03:20 PSHx: hysterectomy; prachi velarde
--- NOTE | 2022-03-31 04:51 | EDPHYS ---
Physician Documentation [facility] Name: Em Butler Age: 62 yrs Sex: Female : 1960 Arrival Date: 03/31/2022 Time: 03:02 Bed 7 Private MD: ED Physician Danny Velasquez HPI: 03/31 03:22 This 62 yrs old Female presents to ER via Ambulatory with complaints of Chest rt Pain > 30 y/o, Cough. 03:22 The patient or guardian reports chest pain that is located primarily in the substernal rt area. Onset: gradually, 3 day(s) ago. The pain does not radiate. Associated signs and symptoms: Pertinent positives: cough, Pertinent negatives: dizziness. The chest pain is described as aching. Modifying factors: The symptoms are alleviated by nothing. the symptoms are aggravated by nothing. Presents to the ED with cough, congestion. She has pleuritic chest pain as well as shortness of breath. This is been present for about 3 days. She has associated burning sensation to her eyes but denies blurred vision. Denies other acute complaints this time, symptoms are moderate in severity, no other aggravating or alleviation factors. Historical: - Allergies: 03:20 No Known Allergies; bb - Home Meds: 03:20 Hydralazine Oral [Active]; Farxiga oral [Active]; Lisinopril Oral [Active]; Furosemide bb Oral [Active]; - PMHx: 03:20 Arthritis; GERD; Hypertension; Sleep Apnea; bb - Immunization history:: Client reports having NOT received the Covid vaccine. - Social history:: Smoking status: Patient denies any tobacco usage or history of. - Family history:: not pertinent. ROS: 03:22 Constitutional: Negative for fever, chills, and weight loss, Neck: Negative for injury, rt pain, and swelling, Abdomen/GI: Negative for abdominal pain, nausea, vomiting, diarrhea, and constipation, MS/Extremity: Negative for injury and deformity, Skin: Negative for injury, rash, and discoloration, Neuro: Negative for headache, weakness, numbness, tingling, and seizure, Psych: Negative for depression, anxiety, suicide ideation, homicidal ideation, and hallucinations. 03:22 Eyes: Positive for pain, Negative for blurry vision. 03:22 ENT: Positive for rhinorrhea, sore throat. 03:22 Cardiovascular: Positive for chest pain, Negative for edema. 03:22 Respiratory: Positive for cough, shortness of breath. Exam: 03:22 Constitutional: This is a well developed, well nourished patient who is awake, alert, rt and in no acute distress. Head/Face: Normocephalic, atraumatic. Eyes: Pupils equal round and reactive to light, extra-ocular motions intact. Lids and lashes normal. Conjunctiva and sclera are non-icteric and not injected. Cornea within normal limits. Periorbital areas with no swelling, redness, or edema. ENT: Nares patent. No nasal discharge, no septal abnormalities noted. Tympanic membranes are normal and external auditory canals are clear. Oropharynx with no redness, swelling, or masses, exudates, or evidence of obstruction, uvula midline. Mucous membranes moist. Neck: Trachea midline, no thyromegaly or masses palpated, and no cervical lymphadenopathy. Supple, full range of motion without nuchal rigidity, or vertebral point tenderness. No Meningismus. Chest/axilla: Normal chest wall appearance and motion. Nontender with no deformity. No lesions are appreciated. Cardiovascular: Regular rate and rhythm with a normal S1 and S2. No gallops, murmurs, or rubs. Normal PMI, no JVD. No pulse deficits. Respiratory: Lungs have equal breath sounds bilaterally, clear to auscultation and percussion. No rales, rhonchi or wheezes noted. No increased work of breathing, no retractions or nasal flaring. Abdomen/GI: Soft, non-tender, with normal bowel sounds. No distension or tympany. No guarding or rebound. No evidence of tenderness throughout. Skin: Warm, dry with normal turgor. Normal color with no rashes, no lesions, and no evidence of cellulitis. MS/ Extremity: Pulses equal, no cyanosis. Neurovascular intact. Full, normal range of motion. Neuro: Awake and alert, GCS 15, oriented to person, place, time, and situation. Cranial nerves II-XII grossly intact. Motor strength 5/5 in all extremities. Sensory grossly intact. Cerebellar exam normal. Normal gait. Psych: Awake, alert, with orientation to person, place and time. Behavior, mood, and affect are within normal limits. 03:40 ECG was reviewed by the Attending Physician. rt Vital Signs: 03:18 BP 203 / 80; Pulse 105; Resp 20 S; Temp 99.5(O); Pulse Ox 96% on R/A; Weight 131.54 kg bb (R); Height 4 ft. 11 in. (149.86 cm) (R); Pain 5/10; 04:00 BP 164 / 71; Pulse 89; Resp 20; Pulse Ox 96% on R/A; jb4 03:18 Body Mass Index 58.57 (131.54 kg, 149.86 cm) bb MDM: 03:07 Patient medically screened. rt 04:52 Differential diagnosis: acute myocardial infarction, chest wall pain, congestive heart rt failure pneumonia, pneumothorax, pulmonary embolus. HEART Score: History: Slightly Suspicious (0), ECG: Normal (0), Age: > 45 and < 65 years (1), Risk Factors: 1 or 2 risk factors (1), Troponin: < or = 1 x Normal Limit (0), Total Score = 3. Data reviewed: vital signs, nurses notes, old medical records, lab test result(s), EKG, radiologic studies. ED course: Presents to the ED with cough, congestion, sore throat. She does have a pleuritic chest pain. She has no acute ischemic changes on the EKG, negative troponin, given chronicity of symptoms, this is sufficient to rule out an acute coronary syndrome. No evidence for pneumonia on the chest x-ray, patient is not volume overloaded, BNP is negative. I do not suspect HF as the etiology. She is PE RC negative, does not require further work-up for pulmonary embolism, I suspect a viral etiology of patient's presentation, given low-grade temperature. Patient does have positive sick contacts at home. She is stable for outpatient care, return precautions were discussed with patient. She is comfortable with discharge.. 03/31 03:14 Order name: CBC with Diff; Complete Time: 03:40 rt 03/31 03:14 Order name: CMP; Complete Time: 04:17 rt 03/31 03:14 Order name: Troponin HS; Complete Time: 04:17 rt 03/31 03:14 Order name: BNP; Complete Time: 04:17 rt 03/31 03:14 Order name: Chest Single View XRAY rt 03/31 03:14 Order name: COVID-19/FLU A+B; Complete Time: 04:17 rt EC:40 Rate is 92 beats/min. Rhythm is regular, Normal Sinus Rhythm with No ectopy. QRS [place] rt is Normal. GA interval is normal. QRS interval is normal. QT interval is normal. No Q waves. T waves are Normal. Interpreted by me. Administered Medications: 03:45 Drug: Tylenol 1000 mg Route: PO; jb4 04:57 Follow up: Response: No adverse reaction jb4 Disposition Summary: 03/31/22 04:50 Discharge Ordered Location: Home rt Problem: new rt Symptoms: have improved rt Condition: Stable rt Diagnosis - Acute upper respiratory infection, unspecified rt Followup: rt - With: Private Physician - When: 2 - 3 days - Reason: Discharge Instructions: - Discharge Summary Sheet rt - Viral Respiratory Infection rt Forms: - Medication Reconciliation Form rt - Thank You Letter rt - Antibiotic Education rt - Prescription Opioid Use rt Prescriptions: - Tessalon Perles 100 mg Oral Capsule - take 1 capsule by ORAL route every 8 hours As needed; 15 capsule; Refills: 0, rt Product Selection Permitted Signatures: Dispatcher [employer] Mariangel Fierro RN RN bb Bobby Meier RN RN jb4 Danny Velasquez MD MD rt Corrections: (The following items were deleted from the chart) 03: 03:20 PSHx: Cholecystectomy; prachi velarde 03: 03:20 PSHx: hysterectomy; prachi velarde
[2022-03-31 05:09] VITALS: TEMP 99.5; O2SAT 96
[2022-03-31 05:11] VITALS: BP 164/71
--- NOTE | 2022-03-31 17:29 | RAD REPORT ---
EXAM DESCRIPTION: RAD - Chest Single View - 03/31/2022 3:55 am CLINICAL HISTORY: COUGH COMPARISON: None. TECHNIQUE: XR CHEST 1 VIEW 03/31/2022 3:14 AM LARD RENDERER FINDINGS: Cardiac silhouette is normal in size. Lungs are clear without consolidation, atelectasis, mass or edema. There is no pleural effusion. There is no pneumothorax. There are no acute osseous fin dings. IMPRESSION: Clear lungs. Electronically signed by: Mauro Mckay MD 03/31/2022 6:35 AM LARD RENDERER Due to temporary technical issues with the PACS/Fluency reporting system, reports are being signed by the in house radiologists without review as a courtesy to insure prompt reporting. The interpreting radiologist is fully responsible for the content of the report.
--- NOTE | 2022-04-01 12:51 | EKG ---
Test Date: 2022-03-31 Test Time: 03:34:59 Weighter: FAIZAN MEASUREMENT RESULTS: Intervals: Rate: 92 MT: 178 QRSD: 82 QT: 376 QTc: 464 [place]: P: 66 MT: 178 QRS: 39 T: 54 INTERPRETIVE STATEMENTS: Normal sinus rhythm Normal ECG Compared to ECG 05/14/2021 13:27:17 Atrial premature complex(es) no longer present Electronically Signed On 04-01-22 12:49:24 SELLING MANAGER by Sanjay Aldana
== END 2022-03-31 05:05 | disposition home or self-care (01) ==
LOC: ER 02:59
DX: J06.9 Acute upper respiratory infection, unspecified (principal); Z20.822 Contact with and (suspected) exposure to COVID-19; I10 Essential (primary) hypertension
CPT/HCPCS: 0240U; 36415; 71045; 80053; 83880; 84484; 85025; 93005; 99285

== ENCOUNTER 2024-06-08 00:32 | Emergency (ER) | payer OTHER ==
[2024-06-08] MEDS ORDERED: ALBUTEROL 2.5 MG/3 ML NEB SOL ONE (01:25)
[2024-06-08] MEDS ORDERED: cloNIDine HCL 0.1 MG TAB ONE (01:26)
[2024-06-08] MEDS ORDERED: DIPHENHYDRAMINE 50 MG/ML VIAL ONE (01:35)
[2024-06-08] MEDS ORDERED: predniSONE 20 MG TAB ONE (01:35)
[2024-06-08 02:10] LABS: Absolute Eosinophils 0.1 K/uL (0-0.5); Absolute Lymphocytes (CBC) 4.4 K/uL (0.7-4.9); Absolute Monocytes 0.6 K/uL (0.1-1.3); Absolute Neutrophil 3.3 K/uL (1.8-8.0); Basophils % 0.5 % (0-1.3); Eosinophils % 1.4 % (0-4.4); Hematocrit 36.8 % (36.0-45.0); Hemoglobin 12.6 g/dL (12.0-15.0); Lymphocytes % 52.3 % (15.3-44.8); MCH 31.8 pg (27.0-35.0); MCHC 34.3 g/dL (32.0-36.0); MCV 92.8 fL (80-100); MPV 6.9 fL (7.6-11.3); Monocytes % 7.3 % (3.3-12.3); Neutrophils % 38.5 % (41.7-73.7); Nucleated Red Blood Cells % 0.1 % (0-0); Platelets 274 thou/uL (152-406); RBC Red Blood Cell Count 3.96 M/uL (3.86-4.86); Red Cell Distribution Width 13.5 % (12.1-15.2)
[2024-06-08 02:32] LABS: ALT/SGPT 18 U/L (13-56); AST/SGOT 12 U/L (15-37); Albumin 3.3 g/dL (3.4-5.0); Albumin/Globulin Ratio 0.8 (1.1-1.8); Alkaline Phosphatase 94 U/L (45-117); Anion Gap 7.7 mEq/L (5.0-15.0); BUN Blood Urea Nitrogen 26 mg/dL (7-18); Bicarbonate 27 mEq/L (21-32); Bilirubin Total 0.2 mg/dL (0.2-1.0); Globulin 3.9 g/dL (2.3-3.5); Glomerular Filtration Rate 80 ml/min (=/>90); Glucose Level 118 mg/dL (74-106); NT PRO-BNP 128 pg/mL (<125); Potassium 3.7 mEq/L (3.5-5.1); Protein, Total 7.2 g/dL (6.4-8.2); Sodium Level 141 mEq/L (136-145); Troponin High Sensitivity 6.6 pg/mL (<58.9)
[2024-06-08 02:38] LABS: Band Neutrophils 6 % (0-1); Bilirubin Direct < 0.2 mg/dL (0-0.2); Blood Morphology Comment NOT SEEN (NOT SEEN); Differential Total Cells Count 100; Lymphocytes 51 % (15-42); Monocytes 2 % (0-10); Platelet Estimate ADEQ; Reactive Lymphocytes 8 %; Segmented Neutrophils 33 % (40-80)
--- NOTE | 2024-06-08 04:07 | ER ---
Nurse's Notes [facility] Name: Em Butler Age: 64 yrs Sex: Female : 1960 Arrival Date: 06/08/2024 Time: 00:32 Bed 8 Private MD: Diagnosis: Acute dyspnea secondary to chemical inhalation, Acute enhalation of chemical chicken and fish cleaner Presentation: 06/08 00:43 Chief complaint: Patient states: EXPOSURE TO AIR FRESHENER, I FEEL SOMETHING BURNING ha1 DOWN MY THROAT. 00:43 Coronavirus screen: Client denies travel out of the [place] in the last 14 days. Ebola ha1 Screen: No symptoms or risks identified at this time. Initial Sepsis Screen: Does the patient meet any 2 criteria? No. Patient's initial sepsis screen is negative. Does the patient have a suspected source of infection? No. Patient's initial sepsis screen is negative. Risk Assessment: Do you want to hurt yourself or someone else? Patient reports no desire to harm self or others. Onset of symptoms was June 08, 2024. 00:43 Method Of Arrival: Ambulatory ha1 00:43 Acuity: ANNY 3 ha1 Triage Assessment: 00:43 Respiratory: Reports shortness of breath at rest Airway is patent Respiratory effort is ha1 even, unlabored, Respiratory pattern is regular, symmetrical, Onset: The symptoms/episode began/occurred gradually, the patient has moderate shortness of breath. 00:43 Neuro: Level of Consciousness is awake, alert, obeys commands, Oriented to person, ha1 place, time, situation. Cardiovascular: Patient's skin is warm and dry. Historical: - Allergies: : No Known Allergies; bm8 - Home Meds: : Ozempic subcutaneous [Active]; bm8 - PMHx: :22 Arthritis; GERD; HEART FAILURE; Hypertension; Sleep Apnea; bm8 - PSHx: : Cholecystectomy; Total abdominal hysterectomy; tubal ligation; bm8 - Immunization history:: Adult Immunizations unknown. - Infectious Disease History:: Denies. - Family history:: not pertinent. - Social history:: Smoking status: Patient denies any tobacco usage or history of. Screenin: [facility] ED Fall Risk Assessment (Adult) History of falling in the last 3 months, bm8 including since admission No falls in past 3 months (0 pts) Confusion or Disorientation No (0 pts) Intoxicated or Sedated No (0 pts) Impaired Gait No (0 pts) Mobility Assist Device Used No (0 pt) Altered Elimination No (0 pt) Score/Fall Risk Level 0 - 2 = Low Risk Oriented to surroundings, Maintained a safe environment, Educated pt \T\ family on fall prevention, incl call for assistance when getting out of bed, Assessed \T\ reinforced patient's understanding of fall precautions, Hourly rounding (assess needs \T\ fall precautionary measures) done, Used ambulatory aids as needed (educated on \T\ assisted with), Used gait belt as appropriate. Abuse screen: Denies injuries from another. Nutritional screening: No deficits noted. Tuberculosis screening: No symptoms or risk factors identified. Assessment: 01:21 Reassessment: Patient appears in no apparent distress at this time. Patient and/or bm8 family updated on plan of care and expected duration. Pain level reassessed. Patient is alert, oriented x 3, equal unlabored respirations, skin warm/dry/pink. General: Appears in no apparent distress. comfortable, Behavior is calm, cooperative, appropriate for age. Pain: Denies pain. Neuro: No deficits noted. Level of Consciousness is awake, alert, obeys commands, Oriented to person, place, time, situation, Appropriate for age. Cardiovascular: Reports shortness of breath, Denies chest pain, Heart tones S1 S2 present Capillary refill < 3 seconds in bilateral fingers Patient's skin is warm and dry. Rhythm is sinus rhythm. Respiratory: Airway is patent Respiratory effort is even, unlabored, Respiratory pattern is regular, symmetrical, Breath sounds are clear bilaterally. GI: No signs and/or symptoms were reported involving the gastrointestinal system. : No signs and/or symptoms were reported regarding the genitourinary system. EENT: No signs and/or symptoms were reported regarding the EENT system. Derm: No signs and/or symptoms reported regarding the dermatologic system. Musculoskeletal: No signs and/or symptoms reported regarding the musculoskeletal system. 01:54 Reassessment: Patient appears in no apparent distress at this time. Patient and/or bm8 family updated on plan of care and expected duration. Pain level reassessed. Patient is alert, oriented x 3, equal unlabored respirations, skin warm/dry/pink. Patient denies pain at this time. Patient states feeling better. Patient states symptoms have improved. 02:56 Reassessment: Patient appears in no apparent distress at this time. Patient and/or bm8 family updated on plan of care and expected duration. Pain level reassessed. Patient is alert, oriented x 3, equal unlabored respirations, skin warm/dry/pink. Patient denies pain at this time. Patient states feeling better. Patient states symptoms have improved. 04:05 Reassessment: Patient appears in no apparent distress at this time. Patient and/or bm8 family updated on plan of care and expected duration. Pain level reassessed. Patient is alert, oriented x 3, equal unlabored respirations, skin warm/dry/pink. Patient denies pain at this time. Patient states feeling better. Patient states symptoms have improved. Neuro: No deficits noted. Level of Consciousness is awake, alert, obeys commands, Oriented to person, place, time, situation, Appropriate for age. Cardiovascular: Denies chest pain. Respiratory: Airway is patent Respiratory effort is even, unlabored, Respiratory pattern is regular, symmetrical, Breath sounds are clear bilaterally. Vital Signs: 00:43 Weight 122.47 kg; Height 4 ft. 11 in. ; ha1 01:22 BP 165 / 96; Pulse 80; Resp 18; Temp 98.2; Pulse Ox 99% ; Pain 3/10; bm8 01:54 BP 158 / 70; Pulse 81; Resp 18; Temp 98.2; Pulse Ox 100% ; Pain 0/10; bm8 02:56 BP 152 / 78; Pulse 79; Resp 17; Temp 98.2; Pulse Ox 99% ; Pain 0/10; bm8 04:05 BP 128 / 51; Pulse 64; Resp 16; Temp 98.2; Pulse Ox 100% ; Pain 0/10; bm8 00:43 Body Mass Index 54.53 (122.47 kg, 149.86 cm) ha1 01:22 Pain Scale: Adult bm8 01:54 Pain Scale: Adult bm8 02:56 Pain Scale: Adult bm8 04:05 Pain Scale: Adult bm8 [place] Coma Score: 01:22 Eye Response: spontaneous(4). Motor Response: obeys commands(6). Verbal Response: bm8 oriented(5). Total: 15. 01:54 Eye Response: spontaneous(4). Motor Response: obeys commands(6). Verbal Response: bm8 oriented(5). Total: 15. 02:56 Eye Response: spontaneous(4). Motor Response: obeys commands(6). Verbal Response: bm8 oriented(5). Total: 15. 04:05 Eye Response: spontaneous(4). Motor Response: obeys commands(6). Verbal Response: bm8 oriented(5). Total: 15. 05:06 Eye Response: spontaneous(4). Motor Response: obeys commands(6). Verbal Response: sp4 oriented(5). Total: 15. ED Course: 00:36 Patient arrived in ED. jj6 00:38 Aba Obregon MD is Attending Physician. sp4 00:43 Arm band placed on right wrist. ha1 01:21 Tanmay Santo, RN is Primary Nurse. bm8 01:22 Patient has correct armband on for positive identification. Bed in low position. Call bm8 light in reach. Side rails up X 1. Adult w/ patient. Client placed on continuous cardiac and pulse oximetry monitoring. NIBP monitoring applied. quality assurance monitor final on. Pulse ox on. NIBP on. Door closed. Noise minimized. Warm blanket given. Pillow given. Verbal reassurance given. Head of bed elevated. 01:22 No provider procedures requiring assistance completed. bm8 01:49 XRAY Chest (1 view) In Process Unspecified. EDMS 01:53 Initial lab(s) drawn, by ED staff, sent to lab. EKG done, by ED staff, reviewed by Tanmay Santo RN. Inserted saline lock: 20 gauge in left upper arm, using aseptic technique. Blood collected. Flushed with 10 mL NS. Patient maintains SpO2 saturation greater than 95% on room air. 04:11 IV discontinued, intact, bleeding controlled, No redness/swelling at site. Pressure vk dressing applied. 04:13 Provided Education on: post er care. bm8 08:26 Triage completed. ha1 Administered Medications: 01:31 Drug: Albuterol Inhalation 2.5 mg Inhalation once Route: Inhalation; bm8 01:53 Follow up: Response: No adverse reaction bm8 01:31 Drug: cloNIDine PO 0.2 mg PO once Route: PO; bm8 01:53 Follow up: Response: No adverse reaction bm8 01:54 Drug: predniSONE PO 60 mg PO once Route: PO; bm8 02:57 Follow up: Response: No adverse reaction bm8 01:54 Drug: diphenhydrAMINE IVP 25 mg IVP once Route: IVP; Site: left upper arm; bm8 02:57 Follow up: Response: No adverse reaction bm8 Medication: 01:22 VIS not applicable for this client. bm8 Outcome: 04:06 Discharge ordered by . sp4 04:13 Discharged to home ambulatory, with family, bm8 04:13 Condition: stable 04:13 Discharge instructions given to patient, family, Instructed on discharge instructions, follow up and referral plans. no drinking with medication, no driving heavy equipment, medication usage, safety practices, Demonstrated understanding of instructions, follow-up care, medications, Prescriptions given X 1, 04:13 Patient left the ED. bm8 Signatures: Dispatcher [employer] EDMS Belinda Larry jj6 Vivi Denton, RN RN ha1 Aba Obregon MD MD sp4 Ling Prince Brad, RN RN bm8 Corrections: (The following items were deleted from the chart) 04:07 04:05 BP 128 / 51; Pulse 64bpm; Resp 63bpm; Pulse Ox 100%; Temp 98.2F; Pain 0/10, bm8 Adult; bm8
--- NOTE | 2024-06-08 04:07 | EDPHYS ---
Physician Documentation [facility] Name: Em Butler Age: 64 yrs Sex: Female : 1960 Arrival Date: 06/08/2024 Time: 00:32 Bed 8 Private MD: ED Physician Aba Obregon HPI: 06/08 00:39 This 64 yrs old Female presents to ER via Unassigned with complaints of sp4 Chemical Inhalation. 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 Historical: - Allergies: 01:22 No Known Allergies; bm8 - Home Meds: :22 Ozempic subcutaneous [Active]; bm8 - PMHx: :22 Arthritis; GERD; HEART FAILURE; Hypertension; Sleep Apnea; bm8 - PSHx: 01:22 Cholecystectomy; Total abdominal hysterectomy; tubal ligation; bm8 - Immunization history:: Adult Immunizations unknown. - Infectious Disease History:: Denies. - Family history:: not pertinent. - Social history:: Smoking status: Patient denies any tobacco usage or history of. ROS: 05:30 Constitutional: Negative for fever, chills, and weight loss, positive for cough, sp4 positive for throat irritation, positive for shortness of breath. 05:30 All other systems are negative, Exam: 05:06 Constitutional: This is a well developed, well nourished patient who is awake, alert, sp4 and in no acute distress. Head/Face: Normocephalic, atraumatic. Eyes: Pupils equal round and reactive to light, extra-ocular motions intact. Lids and lashes normal. Conjunctiva and sclera are not injected. Cornea within normal limits. Periorbital areas with no swelling, redness, or edema. ENT: Nares patent. No nasal discharge, no septal abnormalities noted. Tympanic membranes are normal and external auditory canals are clear. Oropharynx with no redness, swelling, or masses, exudates, or evidence of obstruction, uvula midline. Mucous membranes moist. Neck: Trachea midline, no thyromegaly or masses palpated, and no cervical lymphadenopathy. Supple, full range of motion without nuchal rigidity, or vertebral point tenderness. Chest/axilla: Normal chest wall appearance and motion. Nontender with no deformity. No lesions are appreciated. Cardiovascular: Regular rate and rhythm with a normal S1 and S2. No gallops, murmurs, or rubs. Normal PMI, no JVD. No pulse deficits. Respiratory: Lungs have equal breath sounds bilaterally, clear to auscultation and percussion. No rales, rhonchi or wheezes noted. No increased work of breathing, no retractions or nasal flaring. Abdomen/GI: Soft, with normal bowel sounds. No distension or tympany. No guarding or rebound. No evidence of tenderness throughout. Back: No spinal tenderness. No costovertebral tenderness. Skin: Warm, dry with normal turgor. Normal color with no rashes, no lesions, and no evidence of cellulitis. MS/ Extremity: Pulses equal, no cyanosis. Neurovascular intact. Full, normal range of motion. Neuro: Awake and alert, GCS 15, oriented to person, place, time, and situation. Cranial nerves II-XII grossly intact. Motor strength 5/5 in all extremities. Sensory grossly intact. Psych: Awake, alert, with orientation to person, place and time. Behavior, mood, and affect are within normal limits 05:06 ECG was reviewed by the Attending Physician. 0 42 normal sinus rhythm normal EKG Vital Signs: 00:43 Weight 122.47 kg; Height 4 ft. 11 in. ; ha1 01:22 BP 165 / 96; Pulse 80; Resp 18; Temp 98.2; Pulse Ox 99% ; Pain 3/10; bm8 01:54 BP 158 / 70; Pulse 81; Resp 18; Temp 98.2; Pulse Ox 100% ; Pain 0/10; bm8 02:56 BP 152 / 78; Pulse 79; Resp 17; Temp 98.2; Pulse Ox 99% ; Pain 0/10; bm8 04:05 BP 128 / 51; Pulse 64; Resp 16; Temp 98.2; Pulse Ox 100% ; Pain 0/10; bm8 00:43 Body Mass Index 54.53 (122.47 kg, 149.86 cm) ha1 01:22 Pain Scale: Adult bm8 01:54 Pain Scale: Adult bm8 02:56 Pain Scale: Adult bm8 04:05 Pain Scale: Adult bm8 [place] Coma Score: 01:22 Eye Response: spontaneous(4). Motor Response: obeys commands(6). Verbal Response: bm8 oriented(5). Total: 15. 01:54 Eye Response: spontaneous(4). Motor Response: obeys commands(6). Verbal Response: bm8 oriented(5). Total: 15. 02:56 Eye Response: spontaneous(4). Motor Response: obeys commands(6). Verbal Response: bm8 oriented(5). Total: 15. 04:05 Eye Response: spontaneous(4). Motor Response: obeys commands(6). Verbal Response: bm8 oriented(5). Total: 15. 05:06 Eye Response: spontaneous(4). Motor Response: obeys commands(6). Verbal Response: sp4 oriented(5). Total: 15. MDM: 00:41 Medical Screening Exam initiated sp4 01:42 Data reviewed: vital signs, nurses notes, lab test result(s), EKG, radiologic studies. sp4 05:06 ED course: EXAM DESCRIPTION: Chest Single View RadLex: XR CHEST 1 VIEW CLINICAL sp4 HISTORY: 64 years Female, CHEST PAIN COMPARISON: None. FINDINGS: Single portable AP upright view of the chest. Soft tissue attenuation over the lower chest bilaterally. Trachea is midline. Normal size of the cardiac silhouette. No definite consolidation. No pleural effusion or pneumothorax. No acute osseous abnormality. IMPRESSION: Soft tissue attenuation over the lower chest bilaterally. No definite acute radiographic abnormality.. 05:30 Differential diagnosis: Anxiety Reaction asthma, Bronchitis CHF exacerbation, Chronic sp4 Obstructive Pulmonary Disease Chemical pneumonitis. 05:32 ED course: Patient improved after medications in ER. Saturation 100%. Patient stable sp4 for discharge home with as needed albuterol. 06/08 01:11 Order name: Basic Metabolic Panel; Complete Time: 02:58 sp4 06/08 01:11 Order name: CBC with Diff; Complete Time: 02:58 sp4 06/08 01:11 Order name: LFT's; Complete Time: 02:58 sp4 06/08 01:11 Order name: NT PRO-BNP; Complete Time: 02:58 sp4 06/08 01:11 Order name: Troponin HS; Complete Time: 02:58 sp4 06/08 02:18 Order name: Manual Differential; Complete Time: 02:58 EDMS 06/08 01:11 Order name: XRAY Chest (1 view) sp4 06/08 01:11 Order name: EKG; Complete Time: 01: sp4 06/08 01:11 Order name: Cardiac monitoring; Complete Time: sp4 06/08 01:11 Order name: EKG - Nurse/Tech; Complete Time: sp4 06/08 01:11 Order name: IV Saline Lock; Complete Time: sp4 06/08 01:11 Order name: Labs collected and sent; Complete Time: sp4 06/08 01:11 Order name: O2 Per Protocol; Complete Time: sp4 06/08 01:11 Order name: O2 Sat Monitoring; Complete Time: sp4 EC: Rate is 73 beats/min. Rhythm is regular, Normal Sinus Rhythm. QRS [place] is Normal. [place] sp4 interval is normal. QRS interval is normal. QT interval is normal. No Q waves. T waves are Normal. No ST changes noted. Clinical impression: Normal ECG. Interpreted by me. Reviewed by me. Administered Medications: 01:31 Drug: Albuterol Inhalation 2.5 mg Inhalation once Route: Inhalation; bm8 01:53 Follow up: Response: No adverse reaction bm8 01:31 Drug: cloNIDine PO 0.2 mg PO once Route: PO; bm8 01:53 Follow up: Response: No adverse reaction bm8 01:54 Drug: predniSONE PO 60 mg PO once Route: PO; bm8 02:57 Follow up: Response: No adverse reaction bm8 01:54 Drug: diphenhydrAMINE IVP 25 mg IVP once Route: IVP; Site: left upper arm; bm8 02:57 Follow up: Response: No adverse reaction 8 Disposition: 05:32 Chart complete. 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
[2024-06-08 04:36] VITALS: TEMP 98.2
[2024-06-08 04:54] VITALS: BP 128/51; O2SAT 100
--- NOTE | 2024-06-08 05:38 | RAD REPORT ---
EXAM DESCRIPTION: Chest Single View RadLex: XR CHEST 1 VIEW CLINICAL HISTORY: 64 years Female, CHEST PAIN COMPARISON: None. FINDINGS: Single portable AP upright view of the chest. Soft tissue attenuation over the lower chest bilaterall y. Trachea is midline. Normal size of the cardiac silhouette. No definite consolidation. No pleural effusion or pneumothorax. No acute osseous abnormality. IMPRESSION: Soft tissue attenuation over the lower chest bilaterally. No definite acute radiographic abnormality. Electronically signed by: Luz Gates MD 06/08/2024 04:05 AM [facility] Due to temporary technical issues with the [email or web address] reporting system, reports are being fransisco d by the in-house radiologist without review as a courtesy to ensure prompt reporting the interpreting radiologist is fully responsible for the content of the report. Transcribed Date/Time: 06/08/2024 5:38 AM
--- NOTE | 2024-06-08 12:08 | EKG ---
Test Date: 2024-06-08 Test Time: 01:42:45 Senior Laboratory Technician: MARIANO MEASUREMENT RESULTS: Intervals: Rate: 73 OK: 178 QRSD: 80 QT: 412 QTc: 453 [place]: P: 53 OK: 178 QRS: 32 T: 57 INTERPRETIVE STATEMENTS: Normal sinus rhythm Normal ECG Compared to ECG 05/06/2023 13:50:34 First degree AV block no longer present Electronically Signed On 06-08-24 12:07:19 [employer] by Isai Nobles
== END 2024-06-08 04:13 | disposition home or self-care (01) ==
LOC: ER 00:32
DX: T59.891A Toxic effect of other specified gases, fumes and vapors, accidental (unintentional), initial encounter (principal); R06.00 Dyspnea, unspecified; R07.0 Pain in throat
CPT/HCPCS: 93005; 85025; 80048; 36415; 80076; 84484; 83880; 71045; J7512; J1200; J7613